=== PATIENT | female | born 1975 | race Caucasian/White ===

== ENCOUNTER 2021-04-10 12:35 | Emergency (ER) | payer SELFPAY ==
--- NOTE | 2021-04-10 15:52 | ER ---
Nurse's Notes [facility] Name: Bonnie Rivers Age: 45 yrs Sex: Female : 1975 Arrival Date: 04/10/2021 Time: 12:49 Bed DIS3 Private MD: Diagnosis: Acute gingivitis;Dental caries, unspecified Presentation: 04/10 13:08 Chief complaint: Patient states: Swelling to R side of face that began this morning. ss Coronavirus screen: Client denies travel out of the [place] in the last 14 days. Ebola Screen: Patient denies exposure to infectious person. Patient denies travel to an Ebola-affected area in the 21 days before illness onset. Initial Sepsis Screen: Does the patient meet any 2 criteria? No. Patient's initial sepsis screen is negative. Does the patient have a suspected source of infection? No. Patient's initial sepsis screen is negative. Risk Assessment: Do you want to hurt yourself or someone else? Patient reports no desire to harm self or others. Onset of symptoms was April 10, 2021. 13:08 Method Of Arrival: Ambulatory ss 13:08 Acuity: DARIA 3 ss Historical: - Allergies: 13:08 No Known Allergies; ss - PMHx: 13:08 Anxiety; GERD; ss - Immunization history:: Client reports receiving the 2nd dose of the Covid vaccine. - Social history:: Smoking status: . - Family history:: not pertinent. Assessment: 16:08 Reassessment: Patient is alert, oriented x 3, equal unlabored respirations, skin aa5 warm/dry/pink. Vital Signs: 13:08 Resp 16; Weight 76.66 kg; Height 5 ft. 6 in. (167.64 cm); Pain 9/10; ss 13:09 BP 115 / 89; Pulse 83; Resp 16; Temp 98.3(TE); Pulse Ox 99% ; ss 13:08 Body Mass Index 27.28 (76.66 kg, 167.64 cm) ED Course: 12:49 Patient arrived in ED. as 13:08 Triage completed. ss 13:08 Arm band placed on right wrist. ss 14:20 Adarsh Sanford MD is Attending Physician. [facility] 15:21 Stefani Mason RN is Primary Nurse. kg 15:51 Angel Gant DDS is Referral Physician. [facility] 16:08 No provider procedures requiring assistance completed. Patient did not have IV access aa5 during this emergency room visit. Administered Medications: 15:51 Drug: Amoxicillin 500 mg Route: PO; kg 15:51 Drug: Motrin (ibuprofen) 600 mg Route: PO; kg Outcome: 15:52 Discharge ordered by . [facility] 16:08 Discharged to home ambulatory. aa5 16:08 Condition: stable 16:08 Discharge instructions given to patient, Instructed on discharge instructions, follow up and referral plans. medication usage, Demonstrated understanding of instructions, follow-up care, medications, Prescriptions given X 2. 16:09 Patient left the ED. aa5 Signatures: Adarsh Sanford MD MD cha Martinez, Amelia as Calderon, Audri, RN RN aa5 Sushma Ayoub, RENETTA RN Stefani Mason RN RN kg
--- NOTE | 2021-04-10 15:53 | EDPHYS ---
Physician Documentation [facility] Name: Bonnie Rivers Age: 45 yrs Sex: Female : 1975 Arrival Date: 04/10/2021 Time: 12:49 Bed DIS3 Private MD: ED Physician Adarsh Sanford HPI: 04/10 15:42 This 45 yrs old Female presents to ER via Ambulatory with complaints of Jaw shanna Pain - swelling. 15:42 The patient presents with pain, redness. The problem is located in the lower right shanna first molar and lower right second molar. Onset: The symptoms/episode began/occurred 3 day(s) ago. Duration: The symptoms are continuous. Modifying factors: The symptoms are alleviated by nothing, the symptoms are aggravated by nothing. Associated signs and symptoms: The patient has no apparent associated signs or symptoms. Severity of symptoms: At their worst the symptoms were mild, in the emergency department the symptoms are unchanged. The patient has not experienced similar symptoms in the past. Historical: - Allergies: 13:08 No Known Allergies; ss - PMHx: 13:08 Anxiety; GERD; ss - Immunization history:: Client reports receiving the 2nd dose of the Covid vaccine. - Social history:: Smoking status: . - Family history:: not pertinent. ROS: 15:42 Constitutional: Negative for fever, chills, and weight loss, Eyes: Negative for injury, shanna pain, redness, and discharge, Neck: Negative for injury, pain, and swelling, Cardiovascular: Negative for chest pain, palpitations, and edema, Respiratory: Negative for shortness of breath, cough, wheezing, and pleuritic chest pain, Abdomen/GI: Negative for abdominal pain, nausea, vomiting, diarrhea, and constipation, Back: Negative for injury and pain, : Negative for injury, bleeding, discharge, and swelling, MS/Extremity: Negative for injury and deformity, Skin: Negative for injury, rash, and discoloration, Neuro: Negative for headache, weakness, numbness, tingling, and seizure, Psych: Negative for depression, anxiety, suicide ideation, homicidal ideation, and hallucinations, Allergy/Immunology: Negative for hives, rash, and allergies, Endocrine: Negative for neck swelling, polydipsia, polyuria, polyphagia, and marked weight changes, Hematologic/Lymphatic: Negative for swollen nodes, abnormal bleeding, and unusual bruising. 15:42 ENT: Positive for Gum pain Exam: 15:42 Constitutional: This is a well developed, well nourished patient who is awake, alert, shanna and in no acute distress. Head/Face: Normocephalic, atraumatic. Eyes: Pupils equal round and reactive to light, extra-ocular motions intact. Lids and lashes normal. Conjunctiva and sclera are non-icteric and not injected. Cornea within normal limits. Periorbital areas with no swelling, redness, or edema. Neck: Trachea midline, no thyromegaly or masses palpated, and no cervical lymphadenopathy. Supple, full range of motion without nuchal rigidity, or vertebral point tenderness. No Meningismus. Chest/axilla: Normal chest wall appearance and motion. Nontender with no deformity. No lesions are appreciated. Cardiovascular: Regular rate and rhythm with a normal S1 and S2. No gallops, murmurs, or rubs. Normal PMI, no JVD. No pulse deficits. Respiratory: Lungs have equal breath sounds bilaterally, clear to auscultation and percussion. No rales, rhonchi or wheezes noted. No increased work of breathing, no retractions or nasal flaring. Abdomen/GI: Soft, non-tender, with normal bowel sounds. No distension or tympany. No guarding or rebound. No evidence of tenderness throughout. Back: No spinal tenderness. No costovertebral tenderness. Full range of motion. Skin: Warm, dry with normal turgor. Normal color with no rashes, no lesions, and no evidence of cellulitis. MS/ Extremity: Pulses equal, no cyanosis. Neurovascular intact. Full, normal range of motion. Neuro: Awake and alert, GCS 15, oriented to person, place, time, and situation. Cranial nerves II-XII grossly intact. Motor strength 5/5 in all extremities. Sensory grossly intact. Cerebellar exam normal. Normal gait. Psych: Awake, alert, with orientation to person, place and time. Behavior, mood, and affect are within normal limits. 15:42 ENT: Mouth: Gums: noted to have cellulitis, on the lower right first molar and lower right second molar. Vital Signs: 13:08 Resp 16; Weight 76.66 kg; Height 5 ft. 6 in. (167.64 cm); Pain 9/10; ss 13:09 BP 115 / 89; Pulse 83; Resp 16; Temp 98.3(TE); Pulse Ox 99% ; ss 13:08 Body Mass Index 27.28 (76.66 kg, 167.64 cm) MDM: 14:20 Patient medically screened. shanna 15:49 Differential diagnosis: dental caries, gingivitis, dental abscess. Data reviewed: vital shanna signs, nurses notes. 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 Counseling: I had a detailed discussion with the patient and/or guardian regarding: the historical points, exam findings, and any diagnostic results supporting the discharge/admit diagnosis, lab results. Administered Medications: 15:51 Drug: Amoxicillin 500 mg Route: PO; kg 15:51 Drug: Motrin (ibuprofen) 600 mg Route: PO; kg Disposition Summary: 04/10/21 15:52 Discharge Ordered Location: Home shanna Problem: new shanna Symptoms: have improved shanna Condition: Stable shanna Diagnosis - Acute gingivitis shanna - Dental caries, unspecified shanna Followup: shanna - With: Private Physician - When: 2 - 3 days - Reason: Recheck today's complaints, Continuance of care, Re-evaluation by your physician Followup: shanna - With: Angel Gant DDS - When: 2 - 3 days - Reason: Recheck today's complaints, Re-evaluation by your physician Discharge Instructions: - Discharge Summary Sheet shanna - Dental Caries, Adult shanna - Dental Pain shanna - Dental Pain, [id number] shanna - Diet and Dental Disease shanna - Dental Caries, Adult, [id number] [facility] Forms: - Medication Reconciliation Form [facility] - Thank You Letter [facility] - Antibiotic Education shanna - Prescription Opioid Use [facility] - Work release form [facility] Prescriptions: - Amoxicillin 500 mg Oral Capsule - take 1 capsule by ORAL route every 8 hours for 10 days; 30 tablet; Refills: 0, shanna Product Selection Permitted - Ibuprofen 600 mg Oral Tablet - take 1 tablet by ORAL route every 6 hours As needed take with food; 21 tablet; shanna Refills: 0, Product Selection Permitted Signatures: Adarsh Sanford MD MD cha Smirch, Shelby, RN RN ss Stefani Mason RN RN kg
[2021-04-10] MEDS ORDERED: IBUPROFEN 400 MG TAB ONE (16:07)
[2021-04-10] MEDS ORDERED: AMOXICILLIN TRIHYDR 250 MG CAP ONE (16:07)
[2021-04-10] MEDS ORDERED: IBUPROFEN 200 MG TAB PO ONE (16:07)
[2021-04-10 16:20] VITALS: BP 115/89; TEMP 98.3; O2SAT 99
== END 2021-04-10 16:09 | disposition home or self-care (01) ==
LOC: ER 12:35
DX: K05.00 Acute gingivitis, plaque induced (principal)
CPT/HCPCS: 99283

== ENCOUNTER 2021-07-12 21:50 | Emergency (ER) | payer SELFPAY ==
[2021-07-12] MEDS ORDERED: ACETAMINOPHEN 500 MG TAB ONE (22:44)
[2021-07-12 22:49] LABS: Absolute Lymphocytes (CBC) 1.2 K/uL (0.7-4.9); Basophils % 0.3 % (0-1.3); Hematocrit 31.1 % (36.0-45.0); Lymphocytes % 9.8 % (15.3-44.8); MPV 8.7 fL (7.6-11.3); RBC Red Blood Cell Count 3.56 M/uL (3.86-4.86)
[2021-07-12 23:03] LABS: Protime INR 1.19
[2021-07-12 23:10] LABS: Urine Blood 3+ (Negative); Urine Glucose Negative (Negative); Urine Protein 2+ (Negative); Urine Specific Gravity >=1.030 (1.005-1.030)
[2021-07-12 23:13] LABS: ALT/SGPT 16 U/L (12-78); AST/SGOT 12 U/L (15-37); Albumin 3.2 g/dL (3.4-5.0); Alkaline Phosphatase 92 U/L (45-117); BUN Blood Urea Nitrogen 8 mg/dL (7-18); Bicarbonate 25 mmol/L (21-32); Bilirubin Direct < 0.1 mg/dL (0-0.2); Bilirubin Total 0.3 mg/dL (0.2-1.0); Creatine Phosphokinase 54 U/L (26-192); Glucose Level 101 mg/dL (74-106); Lipase 63 U/L (73-393); Potassium 3.2 mmol/L (3.5-5.1); Protein, Total 7.3 g/dL (6.4-8.2); Sodium Level 139 mmol/L (136-145); Troponin (Emerg Dept Use Only) < 0.02 ng/mL (0.0-0.045)
[2021-07-12 23:17] LABS: CKMB Creatine Kinase MB < 1.0 ng/mL (1.0-3.6)
[2021-07-12] MEDS ORDERED: NA CHLORIDE 0.9% 1,000 ML ONE (23:20)
[2021-07-12] MEDS ORDERED: POTASSIUM CL SA 10 MEQ TAB PO ONE (23:50)
--- NOTE | 2021-07-12 23:59 | ER ---
Nurse's Notes [facility] Name: Bonnie Rivers Age: 46 yrs Sex: Female : 1975 Arrival Date: 07/12/2021 Time: 21:53 Bed 6 Private MD: Diagnosis: Syncope;Right rib pain;Right lateral chest wall pain Presentation: 07/12 22:13 Chief complaint: Patient states: "I had two fainting spells like 10 minutes apart. I ss don't know if I hit my side or not and my neck kind of hurts. I felt fine this morning, now I just feel tired.". Coronavirus screen: Client denies travel out of the [place] in the last 14 days. Ebola Screen: Patient denies exposure to infectious person. Patient denies travel to an Ebola-affected area in the 21 days before illness onset. Initial Sepsis Screen: Does the patient meet any 2 criteria? No. Patient's initial sepsis screen is negative. Does the patient have a suspected source of infection? No. Patient's initial sepsis screen is negative. Risk Assessment: Do you want to hurt yourself or someone else? Patient reports no desire to harm self or others. Onset of symptoms was July 12, 2021. 22:13 Method Of Arrival: Ambulatory 22:13 Acuity: DARIA 3 07/13 01:29 Note Neuro's intact. A\\T\\Ox4. face WNF. hand grasps equal. Foot pumps equal. Pt states df1 headache to left side. Denies N, V, dizziness, numbness, tingling. Triage Assessment: 07/12 22:41 General: Appears uncomfortable, Behavior is calm, cooperative. Pain: Complains of pain df1 in forehead and left roman catholic. 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 - Social history:: Smoking status: Patient reports the use of cigarette tobacco products, smokes one-half pack cigarettes per day. Screenin:40 Abuse screen: Denies threats or abuse. Nutritional screening: No deficits noted. df1 Tuberculosis screening: No symptoms or risk factors identified. Fall Risk Fall in past 12 months (25 points). No secondary diagnosis (0 pts). IV access (20 points). Ambulatory Aid- None/Bed Rest/Nurse Assist (0 pts). Gait- Weak (10 pts.). Mental Status- Oriented to own ability (0 pts). Total Latham Fall Scale indicates Low Risk Score (25-44 pts). Side Rails Up X 2. Assessment: 22:17 Reassessment: Pt to CT now VIA wheelchair. ss 07/13 00:00 General: Appears in no apparent distress. uncomfortable, Behavior is calm, cooperative. df1 00:00 Pain:. Neuro: No deficits noted. Cardiovascular: No deficits noted. Respiratory: No df1 deficits noted. GI: No deficits noted. : No deficits noted. EENT: No deficits noted. Musculoskeletal: No deficits noted. Vital Signs: 07/12 22:13 Temp 98.0(TE); ss 22:40 BP 119 / 81; Pulse 85; Resp 18; Pulse Ox 99% on R/A; Pain 9/10; df1 22:40 BP 106 / 79 Supine; Pulse 87; Resp 22; Pulse Ox 99% on R/A; oe 22:42 BP 115 / 79 Sitting; Pulse 88; Resp 21; Pulse Ox 100% on R/A; oe 22:44 BP 126 / 76 Standing; Pulse 93; Resp 21; Pulse Ox 100% on R/A; oe 23:25 BP 118 / 90; Pulse 86; Resp 18; Pulse Ox 99% on R/A; df1 07/13 00:30 BP 120 / 78; Pulse 84; Resp 18; Pulse Ox 99% on R/A; Pain 5/10; df1 01:28 BP 122 / 76; Pulse 83; Resp 18; Pulse Ox 99% on R/A; df1 ED Course: 07/12 21:53 Patient arrived in ED. bp1 22:11 Keisha Saleh FNP-C [facility]. kb 22:11 Jakub Giles MD is Attending Physician. kb 22:15 Triage completed. ss 22:15 Arm band placed on left wrist. ss 22:21 Maia Da Silva is Primary Nurse. df1 22:23 CT Head Brain wo Cont In Process Unspecified. EDMS 22:26 Chest Single View XRAY In Process Unspecified. EDMS 22:39 Basic Metabolic Panel Sent. df1 22:39 CBC with Automated Diff Sent. df1 22:39 Creatine Phosphokinase Sent. df1 22:39 Basic Metabolic Panel Sent. df1 22:39 CBC with Diff Sent. df1 22:39 CPK Sent. df1 22:40 Patient has correct armband on for positive identification. Placed in gown. Bed in low df1 position. Call light in reach. Side rails up X 1. Adult w/ patient. monitoring tech on. Pulse ox on. NIBP on. 22:40 Ckmb Sent. df1 22:40 Hepatic Function Sent. df1 22:40 Lipase Sent. df1 22:40 Magnesium Sent. df1 22:40 Protime (+inr) Sent. df1 22:40 Ptt, Activated Sent. df1 22:40 Troponin (emerg Dept Use Only) Sent. df1 22:40 No provider procedures requiring assistance completed. Inserted saline lock: 20 gauge df1 in right antecubital area, using aseptic technique. 23:15 UDS Sent. df1 Administered Medications: 22:47 Drug: Tylenol 1000 mg Route: PO; df1 23:24 Drug: NS 0.9% 1000 ml Route: IV; Rate: 1000 ml; Site: right antecubital; df1 23:54 Drug: Potassium Chloride 40 mEq Route: PO; df1 07/13 01:27 Drug: Ketorolac 30 mg Route: IVP; Site: right antecubital; df1 Outcome: 07/12 23:59 Discharge ordered by . sabas 07/13 02:06 Patient left the ED. bb Signatures: Dispatcher [employer] EDMS Keisha Saleh, MILTON WIRELESS SALES REPRESENTATIVE-[place] Black, RN RN Sushma Mcdonough, Derek Dunn RN, Brittany bp1 Furlich, Dawn df1
--- NOTE | 2021-07-13 | EDPHYS ---
Physician Documentation [facility] Name: Bonnie Rivers Age: 46 yrs Sex: Female : 1975 Arrival Date: 07/12/2021 Time: 21:53 Bed 6 Private MD: ED Physician Jakub Giles HPI: 07/12 22:47 This 46 yrs old Female presents to ER via Ambulatory with complaints of Passed Out kb Prior To Arrival. 22:47 The patient has experienced syncope, collapsed. Onset: The symptoms/episode kb began/occurred just prior to arrival. Duration: The patient has had multiple episodes. Context: the episode(s) was witnessed, by no one, occurred at home, occurred while the patient was changing positions. Just prior to the episode the patient experienced lightheadedness. Associated injury: Chest: right lateral anterior chest, pain, tenderness. Associated signs and symptoms: The patient has no apparent associated signs or symptoms. Current symptoms: headache, that is mild. The patient has not experienced similar symptoms in the past. The patient has not recently seen a physician. Pt states she got lightheaded walking into the house, put her head down for a minute and passed out when she stood back up. states she was only out for a minute or so. A little while later pt stood up from toilet, got lightheaded, put her head down on the counter and when she stood up she passed out again. . 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 - Social history:: Smoking status: Patient reports the use of cigarette tobacco products, smokes one-half pack cigarettes per day. ROS: 22:46 Constitutional: Negative for fever, chills, and weight loss. kb 22:46 Neuro: Positive for syncope. 22:46 All other systems are negative. 23:58 Cardiovascular: Positive for right rib pain. kb Exam: 22:46 Constitutional: This is a well developed, well nourished patient who is awake, alert, kb and in no acute distress. Head/Face: Normocephalic, atraumatic. Eyes: Pupils equal round and reactive to light, extra-ocular motions intact. Lids and lashes normal. Conjunctiva and sclera are non-icteric and not injected. Cornea within normal limits. Periorbital areas with no swelling, redness, or edema. ENT: Moist Mucous membranes Cardiovascular: Regular rate and rhythm with a normal S1 and S2. No gallops, murmurs, or rubs. No pulse deficits. Respiratory: Respirations even and unlabored. No increased work of breathing, no retractions or nasal flaring. Abdomen/GI: Soft, non-tender. No distention Skin: Warm, dry with normal turgor. Normal color. MS/ Extremity: Pulses equal, no cyanosis. Neurovascular intact. Full, normal range of motion. Neuro: Awake and alert, GCS 15, oriented to person, place, time, and situation. Moves all extremities. Normal gait. 22:46 ECG was reviewed by the Attending Physician. 23:58 Chest/axilla: Palpation: tenderness, that is moderate, of the right lateral anterior kb chest, that totally reproduces the patient's complaints. Vital Signs: 22:13 Temp 98.0(TE); ss 22:40 BP 119 / 81; Pulse 85; Resp 18; Pulse Ox 99% on R/A; Pain 9/10; df1 22:40 BP 106 / 79 Supine; Pulse 87; Resp 22; Pulse Ox 99% on R/A; oe 22:42 BP 115 / 79 Sitting; Pulse 88; Resp 21; Pulse Ox 100% on R/A; oe 22:44 BP 126 / 76 Standing; Pulse 93; Resp 21; Pulse Ox 100% on R/A; oe 23:25 BP 118 / 90; Pulse 86; Resp 18; Pulse Ox 99% on R/A; df1 07/13 00:30 BP 120 / 78; Pulse 84; Resp 18; Pulse Ox 99% on R/A; Pain 5/10; df1 01:28 BP 122 / 76; Pulse 83; Resp 18; Pulse Ox 99% on R/A; df1 MDM: 07/12 22:12 Patient medically screened. kb 22:45 Data reviewed: vital signs, nurses notes. Data interpreted: Pulse oximetry: on room air kb is 99 %. Interpretation: normal. 23:58 Counseling: I had a detailed discussion with the patient and/or guardian regarding: the kb historical points, exam findings, and any diagnostic results supporting the discharge/admit diagnosis, lab results, radiology results, the need for outpatient follow up, a family practitioner, to return to the emergency department if symptoms worsen or persist or if there are any questions or concerns that arise at home. 07/12 22:16 Order name: Basic Metabolic Panel kb 07/12 22:16 Order name: CBC with Diff kb 07/12 22:16 Order name: CPK kb 07/12 22:16 Order name: Ckmb; Complete Time: 23:28 kb 07/12 22:16 Order name: Hepatic Function; Complete Time: 23:28 kb 07/12 22:16 Order name: Lipase; Complete Time: 23:28 kb 07/12 22:16 Order name: Magnesium; Complete Time: 23:28 kb 07/12 22:16 Order name: Protime (+inr); Complete Time: 23:14 kb 07/12 22:16 Order name: Ptt, Activated; Complete Time: 23:14 kb 07/12 22:16 Order name: Troponin (emerg Dept Use Only); Complete Time: 23:28 kb 07/12 22:17 Order name: Basic Metabolic Panel; Complete Time: 23:28 EDMS 07/12 22:17 Order name: CBC with Automated Diff; Complete Time: 22:54 EDMS 07/12 22:17 Order name: Creatine Phosphokinase; Complete Time: 23:28 EDMS 07/12 22:54 Order name: UDS 07/12 22:16 Order name: CT Head Brain wo Cont kb 07/12 22:16 Order name: EKG; Complete Time: 22:17 kb 07/12 22:16 Order name: Cardiac monitoring; Complete Time: 22:39 kb 07/12 22:16 Order name: EKG - Nurse/Tech; Complete Time: 22:39 kb 07/12 22:16 Order name: IV Saline Lock; Complete Time: 22:39 kb 07/12 22:16 Order name: Labs collected and sent; Complete Time: 22:39 kb 07/12 22:16 Order name: NPO; Complete Time: 22:39 kb 07/12 22:16 Order name: O2 Per Protocol; Complete Time: 22:39 kb 07/12 22:16 Order name: O2 Sat Monitoring; Complete Time: 22:39 kb 07/12 22:16 Order name: Chest Single View XRAY kb 07/12 22:55 Order name: Urine Drug Screen; Complete Time: 01:26 EDMS 07/12 23:09 Order name: Urine Dipstick-Ancillary; Complete Time: 23:14 EDMS 07/12 22:16 Order name: Urine Dipstick-Ancillary (obtain specimen); Complete Time: 23:13 kb 07/12 22:16 Order name: Orthostatics; Complete Time: 23:13 kb EC:46 Rate is 83 beats/min. Rhythm is regular. QRS [place] is Normal. [place] interval is normal at kb 148 msec. QRS interval is normal at 86 msec. QT interval is normal at 398 msec. Administered Medications: 22:47 Drug: Tylenol 1000 mg Route: PO; df1 23:24 Drug: NS 0.9% 1000 ml Route: IV; Rate: 1000 ml; Site: right antecubital; df1 23:54 Drug: Potassium Chloride 40 mEq Route: PO; df1 07/13 01:27 Drug: Ketorolac 30 mg Route: IVP; Site: right antecubital; df1 Disposition: 06:11 Co-signature as Attending Physician, Jakub Giles MD. [facility] Disposition Summary: 07/12/21 23:59 Discharge Ordered Location: Home kb Condition: Stable kb Diagnosis - Syncope kb - Right rib pain kb - Right lateral chest wall pain kb Followup: kb - With: Emergency Department - When: As needed - Reason: Worsening of condition Followup: kb - With: Private Physician - When: 2 - 3 days - Reason: Recheck today's complaints, Continuance of care, Re-evaluation by your physician Discharge Instructions: - Discharge Summary Sheet kb - Chest Wall Pain, [id number] kb - Syncope, [id number] kb Forms: - Medication Reconciliation Form kb - Thank You Letter kb - Antibiotic Education kb - Prescription Opioid Use kb - Work release form lt3 Signatures: Dispatcher [employer] EDMS Keisha Saleh FNP-C FNP-Ckb Smirch, Shelby, RN RN Jakub Shultz MD MD [facility] Maia Da Silva df1 Corrections: (The following items were deleted from the chart) 07/12 23:58 22:46 Constitutional: This is a well developed, well nourished patient who is awake, kb alert, and in no acute distress. Head/Face: Normocephalic, atraumatic. Eyes: Pupils equal round and reactive to light, extra-ocular motions intact. Lids and lashes normal. Conjunctiva and sclera are non-icteric and not injected. Cornea within normal limits. Periorbital areas with no swelling, redness, or edema. ENT: Moist Mucous membranes Cardiovascular: Regular rate and rhythm with a normal S1 and S2. No gallops, murmurs, or rubs. No pulse deficits. Respiratory: Respirations even and unlabored. No increased work of breathing, no retractions or nasal flaring. Abdomen/GI: Soft, non-tender. No distention Skin: Warm, dry with normal turgor. Normal color. MS/ Extremity: Pulses equal, no cyanosis. Neurovascular intact. Full, normal range of motion. Neuro: Awake and alert, GCS 15, oriented to person, place, time, and situation. Moves all extremities. Normal gait. kb
[2021-07-13] MEDS ORDERED: KETOROLAC 30 MG/ML INJ ONE (01:19)
[2021-07-13 01:23] LABS: Barbiturates NEGATIVE (NEGATIVE); Benzodiazepines NEGATIVE (NEGATIVE); Cocaine NEGATIVE (NEGATIVE); METHAMPHETAM NEGATIVE (NEGATIVE); Methadone NEGATIVE (NEGATIVE); Opiates NEGATIVE (NEGATIVE); Phencyclidine NEGATIVE (NEGATIVE); THC Cannibis POSITIVE (NEGATIVE)
[2021-07-13 02:21] VITALS: TEMP 98
[2021-07-13 02:35] VITALS: O2SAT 99
[2021-07-13 02:37] VITALS: BP 122/76
--- NOTE | 2021-07-13 08:23 | RAD REPORT ---
EXAM DESCRIPTION: RAD - Chest Single View - 07/12/2021 10:26 pm CLINICAL HISTORY: right rib pain COMPARISON: CHEST SINGLE VIEW dated 05/31/2014; CHEST PA AND LAT 2 VIEW dated 05/31/2014; CHEST SING LE VIEW dated 06/15/2012 FINDINGS: Lines: None. Lungs: No evidence of edema or pneumonia. Pleural: No significant pleural effusions or pneumothorax. Cardiac: The heart size is within normal limits. Bones: No acute fractures. Other: IMPRESSION: No acute cardiopulmonary disease.
--- NOTE | 2021-07-13 18:30 | RAD REPORT ---
EXAM DESCRIPTION: CT - Head Brain Wo Cont - 07/13/2021 6:29 am CLINICAL HISTORY: 46 years Female Dizziness;Syncope COMPARISON: None TECHNIQUE: Contiguous axial images of the brain were obtained without the administration of intraven ous contrast.This exam was performed according to our departmental dose-optimization program which in cludes use of Automated Exposure Control, adjustment of the mA and/or kV according to patient size an d/or use of iterative reconstruction technique. DLP: 853 mGy*cm FINDINGS: Brain: No acute intracranial hemorrhage. No extra-axial collection. No mass effect or omar iation. Ventricles: Within normal limits in size. Globes and orbits: No acute abnormality. Bones: No acute osseous finding Paranasal sinuses: Paranasal sinuses are clear. Mastoid air cells: Well pneumatized. Soft tissues: Within normal limits IMPRESSION: No acute intracranial abnormality. Electronically signed by: Ethan Parmar DO 07/12/2021 10:35 PM TILE LAYER Due to temporary technical issues with the PACS/Fluency reporting system, reports are being signed by the in house radiologists without review as a courtesy to insure prompt reporting. The interpreting radiologist is fully responsible for the content of the report.
== END 2021-07-13 02:06 | disposition home or self-care (01) ==
LOC: ER 21:50
DX: R07.89 Other chest pain (principal); R07.81 Pleurodynia; F41.9 Anxiety disorder, unspecified; F17.210 Nicotine dependence, cigarettes, uncomplicated
CPT/HCPCS: 36415; 70450; 71045; 80048; 80076; 80307; 81003; 82550; 82553; 83690; 83735; 84484; 85025; 85610; 85730; 93005; 96374; 99284; J7030

== ENCOUNTER 2021-07-20 23:18 | Emergency (ER) | payer SELFPAY ==
[2021-07-21 00:38] LABS: Urine Blood Trace-lysed (Negative); Urine Glucose Negative (Negative); Urine Protein Negative (Negative); Urine Specific Gravity >=1.030 (1.005-1.030); Urine pH 5.5 (5.0-7.0)
[2021-07-21] MEDS ORDERED: MORPHINE 4 MG/ML SYR ONE (00:38)
[2021-07-21] MEDS ORDERED: ONDANSETRON 4 MG/2 ML VIAL ONE (00:38)
--- NOTE | 2021-07-21 02:28 | EDPHYS ---
Physician Documentation [facility] Name: Bonnie Rivers Age: 46 yrs Sex: Female : 1975 Arrival Date: 07/20/2021 Time: 23:24 Bed 8 Private MD: ED Physician Jakub Giles HPI: 07/20 00:39 This 46 yrs old Female presents to ER via Ambulatory with complaints of Right rib pain. pm1 00:39 Onset: last week. The pain does not radiate. Associated signs and symptoms: Pertinent pm1 negatives: abdominal pain, cough, shortness of breath. The chest pain is described as sharp. Duration: The patient or guardian reports a single episode, that is still ongoing. Modifying factors: The symptoms are alleviated by nothing. the symptoms are aggravated by deep breath, palpation of area. Severity of pain: in the emergency department the pain is unchanged. Seen in the ER here last week due to syncopal episode where she hit her right upper ribs against a toilet. Patient denies any further trauma since fall injury last week and is presenting here today with complaints of pain in that area. Patient was this not discharged home with pain medications. 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 - Social history:: Smoking status: Patient reports the use of cigarette tobacco products. ROS: 00:39 Constitutional: Negative for fever, chills, and weight loss, Cardiovascular: Negative pm1 for chest pain, palpitations, and edema. 00:39 Abdomen/GI: Negative for abdominal pain, nausea, vomiting, diarrhea, and constipation, Back: Negative for injury and pain, MS/Extremity: Negative for injury and deformity, Skin: Negative for injury, rash, and discoloration, Neuro: Negative for headache, weakness, numbness, tingling, and seizure. 00:39 Respiratory: Negative for cough, shortness of breath. 00:39 All other systems are negative. Exam: 00:39 Constitutional: This is a well developed, well nourished patient who is awake, alert, pm1 and in no acute distress. Head/Face: Normocephalic, atraumatic. 00:39 Skin: Warm, dry with normal turgor. Normal color with no rashes, no lesions, and no evidence of cellulitis. MS/ Extremity: Pulses equal, no cyanosis. Neurovascular intact. Full, normal range of motion. 00:39 Chest/axilla: Inspection: no acute changes, Palpation: crepitus, is not appreciated, tenderness, that is mild, of the right axilla, that totally reproduces the patient's complaints. 00:39 Cardiovascular: Exam negative for acute changes, Rate: normal, Rhythm: regular, Pulses: no pulse deficits are appreciated, Heart sounds: normal, normal S1and S2, Edema: is not appreciated. 00:39 Respiratory: Exam negative for acute changes, respiratory distress, shortness of breath, Breath sounds: are clear throughout. 00:39 Neuro: Exam negative for acute changes, Orientation: is normal, Mentation: is normal, Motor: is normal, moves all fours. Vital Signs: 23:51 BP 129 / 85; Pulse 96; Resp 99; Temp 97.9; Pulse Ox 99% on R/A; Weight 68.04 kg; Height mr2 5 ft. 6 in. (167.64 cm); Pain 10/10; 12/05 00:34 BP 119 / 87; Pulse 87; Resp 18; Pulse Ox 99% on R/A; Pain 10/10; tw5 01:53 BP 129 / 90; Pulse 70; Resp 18; Pulse Ox 100% on R/A; tw5 02:38 BP 119 / 94; Pulse 71; Resp 18; Pulse Ox 100% on R/A; tw5 12/04 23:51 Body Mass Index 24.21 (68.04 kg, 167.64 cm) mr2 MDM: 00:36 Patient medically screened. pm1 02:14 Data reviewed: vital signs. Data interpreted: Pulse oximetry: on room air is 100 %. pm1 Interpretation: normal. Counseling: I had a detailed discussion with the patient and/or guardian regarding: the historical points, exam findings, and any diagnostic results supporting the discharge/admit diagnosis, lab results, radiology results, the need for outpatient follow up, a family practitioner, to return to the emergency department if symptoms worsen or persist or if there are any questions or concerns that arise at home. 02:27 ED course: Patient denies any breast pain. Discussed CT results and follow up with PCP pm1 for r/o malignancy. 07/21 00:38 Order name: Urine Dipstick-Ancillary; Complete Time: 00:39 EDMS 07/21 00:39 Order name: Urine --Ancillary (enter results); Complete Time: 01:03 cs9 07/21 00:37 Order name: CT Chest Wo Con pm1 Administered Medications: 00:39 Drug: morphine 4 mg Route: IVP; Site: right antecubital; tw5 02:38 Follow up: Response: No adverse reaction; Pain is decreased; RASS: Alert and Calm (0) tw5 00:39 Drug: Zofran (Ondansetron) 4 mg Route: IVP; Site: right antecubital; tw5 02:38 Follow up: Response: No adverse reaction tw5 Disposition: 05:18 Co-signature as Attending Physician, Jakub Giles MD. 7 Disposition Summary: 07/21/21 02:28 Discharge Ordered Location: Home pm1 Problem: new pm1 Symptoms: have improved pm1 Condition: Stable pm1 Diagnosis - Contusion of right front wall of thorax pm1 Followup: pm1 - With: Emergency Department - When: As needed - Reason: Worsening of condition Followup: pm1 - With: Private Physician - When: 2 - 3 days - Reason: Recheck today's complaints, Continuance of care, Re-evaluation by your physician Discharge Instructions: - Discharge Summary Sheet pm1 - Rib Contusion pm1 Forms: - Medication Reconciliation Form pm1 - Thank You Letter pm1 - Antibiotic Education pm1 - Prescription Opioid Use pm1 Prescriptions: - acetaminophen-codeine 300-15 mg Oral tablet - take 2 tablet by ORAL route every 6 hours As needed as needed; 12 tablet; pm1 Refills: 0, Product Selection Permitted - Diclofenac Sodium 75 mg Oral tablet,delayed release (DR/EC) - take 1 tablet by ORAL route 2 times per day As needed; 30 tablet; Refills: 0, pm1 Product Selection Permitted Signatures: Dispatcher [employer] EDMI Saroj Hines, BRIJESH TRANSPORTER RADIOLOGY pm1 Jakub Giles MD MD 7 Zhang Real RN RN mr2 Arianna Spangler 5
--- NOTE | 2021-07-21 02:28 | ER ---
Nurse's Notes [facility] Name: Bonnie Rivers Age: 46 yrs Sex: Female : 1975 Arrival Date: 07/20/2021 Time: 23:24 Bed 8 Private MD: Diagnosis: Contusion of right front wall of thorax Presentation: 07/20 23:51 Chief complaint: Patient states: Pt had fallen last week and injured her right ribs, mr2 xray was neg. Returns today with rib pain when moving and bending over. no other complaints. no new injuries. Coronavirus screen: Vaccine status: Patient reports receiving the 2nd dose of the covid vaccine. Ebola Screen: No symptoms or risks identified at this time. Initial Sepsis Screen: Does the patient meet any 2 criteria? No. Patient's initial sepsis screen is negative. Does the patient have a suspected source of infection? No. Patient's initial sepsis screen is negative. Risk Assessment: Do you want to hurt yourself or someone else? Patient reports no desire to harm self or others. Onset of symptoms was July 15, 2021. 23:51 Method Of Arrival: Ambulatory mr2 23:51 Acuity: DARIA 3 mr2 Triage Assessment: 23:57 General: Appears in no apparent distress. Behavior is calm. Pain: Complains of pain in mr2 right lateral anterior chest Pain does not radiate. Pain currently is 10 out of 10 on a pain scale. Neuro: Reports. 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 - Social history:: Smoking status: Patient reports the use of cigarette tobacco products. Screenin/05 00:27 Abuse screen: Denies threats or abuse. Denies injuries from another. Nutritional tw5 screening: No deficits noted. Tuberculosis screening: No symptoms or risk factors identified. Fall Risk Fall in past 12 months (25 points). Secondary diagnosis (15 points) IV access (20 points). Ambulatory Aid- None/Bed Rest/Nurse Assist (0 pts). Assessment: 00:27 General: Reports "Last Thursday I had two fainting spells. I guess I hit my right side, tw5 and now it hurting pretty bad. I feel like under my right arm is swollen.". Neuro: Level of Consciousness is awake, alert, obeys commands, Oriented to person, place, time, situation. Respiratory: Airway is patent Trachea midline Respiratory effort is even, unlabored. 01:53 Cardiovascular: Rhythm is regular. tw5 01:53 General: Appears in no apparent distress. tw5 02:38 Reassessment: Patient appears in no apparent distress at this time. Patient and/or tw5 family updated on plan of care and expected duration. Pain level reassessed. Patient states feeling better. Patient states symptoms have improved. 02:38 Pain: Pain currently is 5 out of 10 on a pain scale. tw5 Vital Signs: 07/20 23:51 BP 129 / 85; Pulse 96; Resp 99; Temp 97.9; Pulse Ox 99% on R/A; Weight 68.04 kg; Height mr2 5 ft. 6 in. (167.64 cm); Pain 10/10; 12 00:34 BP 119 / 87; Pulse 87; Resp 18; Pulse Ox 99% on R/A; Pain 10/10; tw5 01:53 BP 129 / 90; Pulse 70; Resp 18; Pulse Ox 100% on R/A; tw5 02:38 BP 119 / 94; Pulse 71; Resp 18; Pulse Ox 100% on R/A; tw5 07/20 23:51 Body Mass Index 24.21 (68.04 kg, 167.64 cm) mr2 ED Course: 07/20 23:24 Patient arrived in ED. es 23:56 Triage completed. mr2 23:58 Arm band placed on right wrist. mr2 07/21 00:18 Assisted to bathroom. lp1 00:24 Saroj Hines NP is PHCP. pm1 00:24 Jakub Giles MD is Attending Physician. pm1 00:26 Arianna Spangler is Primary Nurse. tw5 00:26 Patient has correct armband on for positive identification. Placed in gown. Bed in low tw5 position. Call light in reach. Side rails up X 1. Adult w/ patient. Pulse ox on. NIBP on. 00:26 laboratory monitor on. tw5 00:27 Door closed. Moved to private room. Warm blanket given. Verbal reassurance given. tw5 00:27 Initial lab(s) drawn, by me, sent to lab. Urine collected: clean catch specimen, clear, tw5 Amount Voided: 100mL. Inserted saline lock: 20 gauge in right antecubital area, using aseptic technique. Blood collected. 00:58 CT Chest Wo Con In Process Unspecified. EDMS 02:38 No provider procedures requiring assistance completed. IV discontinued, intact, tw5 bleeding controlled, No redness/swelling at site. Pressure dressing applied. Administered Medications: 00:39 Drug: morphine 4 mg Route: IVP; Site: right antecubital; tw5 02:38 Follow up: Response: No adverse reaction; Pain is decreased; RASS: Alert and Calm (0) tw5 00:39 Drug: Zofran (Ondansetron) 4 mg Route: IVP; Site: right antecubital; tw5 02:38 Follow up: Response: No adverse reaction tw5 Outcome: 02:28 Discharge ordered by MD. pm1 02:39 Discharged to home ambulatory, with family. tw5 02:39 Condition: good 02:39 Discharge instructions given to patient, Instructed on discharge instructions, follow up and referral plans. no drinking with medication, no driving heavy equipment, medication usage, Demonstrated understanding of instructions, follow-up care, medications, Prescriptions given X 2. 02:39 Patient left the ED. tw5 Signatures: Dispatcher [employer] Precious Dodson Laura RN RN lp1 Saroj Hines NP FACILITIES TECHNICIAN pm1 Zhang Real RN RN mr2 Arianna Spangler tw5 Corrections: (The following items were deleted from the chart) 02:38 02:38 Reassessment: Patient appears in no apparent distress at this time. No changes tw5 from previously documented assessment. Patient and/or family updated on plan of care and expected duration. Pain level reassessed. tw5
[2021-07-21 02:46] VITALS: TEMP 97.9
[2021-07-21 02:49] VITALS: O2SAT 100
[2021-07-21 02:50] VITALS: BP 119/94
--- NOTE | 2021-07-21 13:34 | RAD REPORT ---
EXAM DESCRIPTION: CT - Thorax Everette Moyer - 07/21/2021 6:51 am CLINICAL HISTORY: Left sided rib pain TECHNIQUE: Axial computed tomography images of the chest without intravenous contrast. Sagittal an d coronal reformatted images were created and reviewed. This CT exam was performed using one or mor e of the following dose reduction techniques: automated exposure control, adjustment of the mA and/ or kV according to patient size, and/or use of iterative reconstruction technique. COMPARISON: No relevant prior studies available. FINDINGS: Lungs: Minimal biapical paraseptal emphysema. No focal consolidation. Pleural space: Unremarkable. No pneumothorax. No significant effusion. Heart: Unremarkable. No cardiomegaly. No significant pericardial effusion. Bones/joints: Unremarkable. No acute fracture. No dislocation. Soft tissues: Unremarkable. Vasculature: Unremarkable. No thoracic aortic aneurysm. Lymph nodes: Multiple subcentimeter right axillary lymph nodes with mild to moderate surrounding in filtrative changes. IMPRESSION: 1. No acute fracture. 2. Multiple subcentimeter right axillary lymph nodes with mild to moderate surrounding infiltrative changes. This is of uncertain etiology or clinical significance. Please correlate clinically for a ny signs and symptoms of infection. Follow-up is recommended in order to exclude underlying malignanc y. Electronically signed by: Les Soliz MD 07/21/2021 1:45 AM PODIATRIC SURGEON Due to temporary technical issues with the PACS/Fluency reporting system, reports are being signed by the in house radiologists without review as a courtesy to insure prompt reporting. The interpreting radiologist is fully responsible for the content of the report.
== END 2021-07-21 02:39 | disposition home or self-care (01) ==
LOC: ER 23:18
DX: S20.211A Contusion of right front wall of thorax, initial encounter (principal); W19.XXXA Unspecified fall, initial encounter; F41.9 Anxiety disorder, unspecified; Z72.0 Tobacco use
CPT/HCPCS: 71250; 81003; 81025; 96374; 96375; 99284; J2405

== ENCOUNTER 2023-05-05 11:30 | Emergency (ER) | payer OTHER, SELFPAY ==
--- OUTSIDE RECORDS SUMMARY | 2023-05-05 11:33 | XMS REPORT | Continuity of Care Document ---
:1975 Author Organization [facility] t Address [address] [place] [address] Care Team Providers Name Role Phone Unavailable Unavailable Unavailable Problems This patient has no known problems. Allergies, Adverse Reactions, Alerts This patient has no known allergies or adverse reactions. Medications This patient has no known medications. Procedures This patient has no known procedures. Encounters Start End Encounter Admission Attending Care Care Encounter Source Date/Time Date/Time Type Type Clinicians Facility Department ID 2023-03-23 2023-03-23 Outpatient [facility] [id number] [place] 13:11:22 13:11:22 [id number] F Dong 2023-02-20 2023-02-20 Outpatient [facility] [id number] [place] 15:44:58 15:44:58 Jessica Umana Results This patient has no known results.
--- NOTE | 2023-05-05 11:50 | EDPHYS ---
Physician Documentation [facility] Name: Bonnie Rivers Age: 48 yrs Sex: Female : 1975 Arrival Date: 05/05/2023 Time: 11:30 Bed IW3 Private MD: ED Physician Jase Kaplan HPI: 05/05 11:47 This 48 yrs old Female presents to ER via Unassigned with complaints of Facial Swelling.rn 11:47 The patient presents with pain, swelling. The problem is located in the mouth. rn 11:47 Onset: The symptoms/episode began/occurred 2 day(s) ago. Duration: The symptoms are rn continuous. Modifying factors: The symptoms are alleviated by nothing, the symptoms are aggravated by chewing. Associated signs and symptoms: Pertinent negatives: fever. Severity of symptoms: At their worst the symptoms were moderate, in the emergency department the symptoms are unchanged. The patient has not experienced similar symptoms in the past. The patient has not recently seen a physician. Patient reports right oral swelling and now cheek is swollen. No fever or chills. Reports poor dentition in the right lower teeth. No trouble swallowing or breathing.. 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 - Social history:: Smoking status: Patient denies any tobacco usage or history of. - Family history:: not pertinent. - Hospitalizations: : No recent hospitalization is reported. ROS: 11:47 Constitutional: Negative for fever, chills, and weight loss, ENT: Poor dentition and rn right cheek swelling Cardiovascular: Negative for chest pain, palpitations, and edema, Respiratory: Negative for shortness of breath, cough, wheezing, and pleuritic chest pain, Exam: 11:47 Constitutional: This is a well developed, well nourished patient who is awake, alert, rn and in no acute distress. Ambulatory to triage without difficulty or assistance Head/Face: Normocephalic, right cheek swelling without fluctuance ENT: Poor dentition with the right molar on the lower side with cavities. No obvious abscess. No stridor, uvula midline, no peritonsillar abscess Neck: No neck swelling, no crepitus Respiratory: No increased work of breathing, no retractions or nasal flaring. Vital Signs: 12:05 BP 126 / 96; Pulse 81; Resp 18; Temp 98.5; Pulse Ox 100% on R/A; Weight 73.94 kg; kb3 Height 5 ft. 6 in. ; Pain 7/10; 12:05 Body Mass Index 26.31 (73.94 kg, 167.64 cm) kb3 12:05 Pain Scale: Adult kb3 MDM: 11:35 Patient medically screened. rn 11:47 Differential diagnosis: dental caries, dental abscess, Buccal space cellulitis. Data rn reviewed: vital signs, nurses notes, and as a result, I will discharge patient. Counseling: I had a detailed discussion with the patient and/or guardian regarding the historical points, exam findings, and any diagnostic results supporting the discharge/admit diagnosis, the need for outpatient follow up, to return to the emergency department if symptoms worsen or persist or if there are any questions or concerns that arise at home. Special discussion: I discussed with the patient/guardian in detail that at this point there is no indication for admission to the hospital. It is understood, however, that if the symptoms persist or worsen the patient needs to return immediately for re-evaluation. Based on the history and exam findings, there is no indication for further emergent testing or inpatient evaluation. I discussed with the patient/guardian the need to see a dentist for further evaluation of the symptoms. Administered Medications: No medications were administered Disposition Summary: 05/05/23 11:50 Discharge Ordered Notes: Location: Home rn Problem: new rn Symptoms: are unchanged rn Condition: Stable rn Diagnosis - Cellulitis of face rn - Dental caries, unspecified rn Followup: rn - With: Private Physician - When: As needed - Reason: Recheck today's complaints, Re-evaluation by your physician Discharge Instructions: - Discharge Summary Sheet rn - Cellulitis, Adult rn - Dental Caries, Adult rn - Dental Pain rn Forms: - Medication Reconciliation Form rn - Thank You Letter rn - Antibiotic mill turner - Prescription Opioid Use rn - Patient Portal Instructions rn - Leadership Thank You Letter rn Prescriptions: - Clindamycin HCl 300 mg Oral Capsule - take 1 capsule ORAL route every 6 hours for 10 days; 40 capsule; Refills: 0, rn Product Selection Permitted - Tramadol 50 mg Oral Tablet - take 1 tablet ORAL route every 8 hours as needed; 12 tablet; Refills: 0, rn Product Selection Permitted Signatures: Jase Kaplan MD MD rn Bradberry, Kelly, RN RN kb3
--- NOTE | 2023-05-05 12:13 | ER ---
Nurse's Notes [facility] Name: Bonnie Rivers Age: 48 yrs Sex: Female : 1975 Arrival Date: 05/05/2023 Time: 11:30 Bed IW3 Private MD: Diagnosis: Cellulitis of face;Dental caries, unspecified Presentation: 05/05 12:05 Chief complaint: Patient states: "Yesterday my right side of my face started swelling kb3 but i've had pain since Thursday. It looks like there is some pus under my tooth". Coronavirus screen: Vaccine status: Patient reports receiving the 2nd dose of the covid vaccine. Ebola Screen: No symptoms or risks identified at this time. Initial Sepsis Screen: Does the patient meet any 2 criteria? No. Patient's initial sepsis screen is negative. Does the patient have a suspected source of infection? No. Patient's initial sepsis screen is negative. Risk Assessment: Do you want to hurt yourself or someone else? Patient reports no desire to harm self or others. Onset of symptoms was May 05, 2023. 12:05 Method Of Arrival: Ambulatory kb3 12:05 Acuity: DARIA 4 kb3 Triage Assessment: 12:07 General: Appears uncomfortable, Behavior is calm, cooperative. Pain: Complains of pain kb3 in mouth Pain radiates to right jaw Pain currently is 7 out of 10 on a pain scale. Quality of pain is described as throbbing, Pain began 2-3 days ago. Is continuous, Aggravated by eating, drinking. EENT: Oral mucosa is dry. Poor dentition noted. Neuro: Awad Agitation-Sedation Scale (RASS): 0 - Alert and Calm Level of Consciousness is awake, alert, obeys commands, Oriented to person, place, time, situation, Appropriate for age. Cardiovascular: Heart tones S1 S2 present Patient's skin is warm and dry. Respiratory: Airway is patent Respiratory effort is even, unlabored, Respiratory pattern is regular, symmetrical. GI: Abdomen is round non-distended, Bowel sounds present X 4 quads. Abd is soft and non tender X 4 quads. : No signs and/or symptoms were reported regarding the genitourinary system. Derm: Skin is pink, warm \\T\\ dry. Musculoskeletal: Range of motion: intact in all extremities. 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 - Social history:: Smoking status: Patient denies any tobacco usage or history of. - Family history:: not pertinent. - Hospitalizations: : No recent hospitalization is reported. Screenin:08 [facility] ED Fall Risk Assessment (Adult) History of falling in the last 3 months, kb3 including since admission No falls in past 3 months (0 pts) Confusion or Disorientation No (0 pts) Intoxicated or Sedated No (0 pts) Impaired Gait No (0 pts) Mobility Assist Device Used No (0 pt) Altered Elimination No (0 pt) Score/Fall Risk Level 0 - 2 = Low Risk Oriented to surroundings, Maintained a safe environment, Educated pt \\T\\ family on fall prevention, incl call for assistance when getting out of bed. Abuse screen: Denies threats or abuse. Nutritional screening: No deficits noted. Tuberculosis screening: No symptoms or risk factors identified. Assessment: 12:08 Reassessment: see triage assessment. kb3 Vital Signs: 12:05 BP 126 / 96; Pulse 81; Resp 18; Temp 98.5; Pulse Ox 100% on R/A; Weight 73.94 kg; kb3 Height 5 ft. 6 in. ; Pain 7/10; 12:05 Body Mass Index 26.31 (73.94 kg, 167.64 cm) kb3 12:05 Pain Scale: Adult kb3 ED Course: 11:35 Patient arrived in ED. im 11:35 Jase Kaplan MD is Attending Physician. rn 12:05 Arm band placed on. kb3 12:06 Triage completed. kb3 12:09 Jackie Mancera, RENETTA is Primary Nurse. mb9 12:09 Bed in low position. kb3 12:09 No provider procedures requiring assistance completed. Patient did not have IV access kb3 during this emergency room visit. Administered Medications: No medications were administered Medication: 12:09 VIS not applicable for this client. kb3 Outcome: 11:50 Discharge ordered by . rn 12:13 Discharged to home ambulatory, kb3 12:13 Condition: stable 12:13 Discharge instructions given to patient, Instructed on discharge instructions, follow up and referral plans. Demonstrated understanding of instructions, follow-up care, medications, Prescriptions given X 2, 12:13 Patient left the ED. kb3 Signatures: Jase Kaplan MD MD rn Bradberry, Kelly RN RN kb3 Jackie Mancera RN RN mb9 Zeian Conde
[2023-05-05 12:17] VITALS: BP 126/96; TEMP 98.5; O2SAT 100
== END 2023-05-05 12:13 | disposition home or self-care (01) ==
LOC: ER 11:30
DX: L03.211 Cellulitis of face (principal); K02.9 Dental caries, unspecified; I10 Essential (primary) hypertension

== ENCOUNTER → 2023-10-03 | Emergency (ER) | payer OTHER ==
[~2023-10-03] MED LIST: HYDROCODONE/APAP 7.5/325 MG TAB ONE
--- OUTSIDE RECORDS SUMMARY | 2023-10-03 12:01 | XMS REPORT | Continuity of Care Document ---
Author Name Unknown Address [address] [facility]. [address] [place] [address] [facility] thconnect Address [address] [facility] [address] [place] [address] Care Team Providers Care Client Care Representative Name Role Phone Unavailable Unavailable Unavailable Encounters Start Date/Time End Date/Time Encounter Type Admission Type Attending Clinicians Care Facility Care Department Encounter ID Source 2023-07-18 12:16:07 2023-07-18 12:16:07 Outpatient [facility] [id number] Delroy Umana 2023-03-23 13:11:22 2023-03-23 13:11:22 Outpatient [facility] [id number] Delroy Umana 2023-02-20 15:44:58 2023-02-20 15:44:58 Outpatient [facility] [id number] Delroy Umana Results Test Description Test Time Test Comments Results Result Co mments Source CULTURE, URINE 2023-07-22 13:56:42 SPECIMEN NUMBER: [id number] CULTURE, URINE SPECIMEN NUMBER: [id number] SPECIMEN COMMENT: URINE SOURCE: URINE REPORT STATUS: FINAL ISOLATE NUMBER 1: ORGANISM: 07/20/2023 50-100,000 CFU/ML GRAM NEGATIVE BACILLI IDENTIFICATION: 07/22/2023 ESCHERICHIA COLI E. COLI AMOX ICILLIN/CA SENSITIVE <=8/4AMPICILLIN SENSITIVE <=8CEFAZOLIN SENSITIVE 4CEFTRIAXONE SENSITIVE <=1CIPROFLOXACIN RESISTANT >2LEVOFLOXACIN RESISTANT >4NITROFURANTOIN SENSITIVE <=32PIP/TAZOBAC SENSITIVE <=16TETRACYCLINE RESISTANT >8TOBRAMYCIN SENSITIVE <=4TRIMETH/SULFA SENSITIVE <=2/38 NOTE: NUMBERS DISPLAYED REPRESENT MINIMUM INHIBITORY CONCENTRATION (JAYDE) WHICH IS EXPRESSED IN MCG/ML. LIPID [id number] 01:01:45* Test Item Value Reference Range Interpretation Comme nts CHOLESTEROL (test code = 2210) 133 MG/DL <200 TRIGLYCERIDES (test code = 2232) 76 MG/DL <150 HDL CHOLESTEROL (test code = 2220) 42 MG/DL >39 CALC LDL CHOL (test code = 2237) 75 MG/DL <100 NOTE: CALCULATED LDL IS BASED ON LINDA-MELVIN METHOD WHICHINCLUDES ADJUSTABLE TRIGLYCERIDE:VLDL CHOLESTEROL RATIO.THIS FACTOR VARIES BY MEASURED TRIGLYCERIDE AND NON-HDLCHOLESTEROL CONCENTRATIONS WITH INCREASED CALCULATED LDL SEENIN HIGHER TRIGLYCERIDE OR LOWER NON-HDL SPECIMENS. FOR MOREINFORMATION, SEE CLIENT ANNOUNCEMENT AT [email or web address] [email or web address] RATIO LDL/HDL (test code = 2238) 1.79 RATIO <3.22 UNLESS OTHERW ISE INDICATED, ALL TESTING PERFORMED AT [facility] [address] [place] [id number] [place] HISTORY PROFESSOR: Giorgio FARLEY NUMBER [id number] [facility] [place]. [id number]
--- NOTE | 2023-10-03 12:47 | RAD REPORT ---
EXAM DESCRIPTION: CT - CTHCSPWOC - 10/03/2023 12:33 pm CLINICAL HISTORY: Trauma, head and neck injury. PAIN COMPARISON: No comparisons TECHNIQUE: Axial 5 mm thick images of the head were obtained. Axial 2 mm thick images of the cervical spine were obtained with sagittal and coronal reconstruction images generated and reviewed. All CT scans are performed using dose optimization technique as appropriate and may include automated exposure control or mA/KV adjustment according to patient size. FINDINGS: CT HEAD WITHOUT CONTRAST: No acute hemorrhage, hydrocephalus or extra-axial collection is identified.No areas of brain edema or midline shift. The paranasal sinuses and mastoids are clear.The calvarium is intact. CT CERVICAL SPINE WITHOUT CONTRAST: No fracture or subluxation.No prevertebral soft tissues swelling is identified. IMPRESSION: No acute intracranial or cervical spine findings.
--- NOTE | 2023-10-03 12:47 | RAD REPORT ---
EXAM DESCRIPTION: RAD - Knee Left 3 View - 10/03/2023 12:39 pm CLINICAL HISTORY: PAIN COMPARISON: Knee Left 3 View dated 11/15/2016; Knee Left 3 view dated 07/30/2015 FINDINGS/IMPRESSION: No acute fracture. No malalignment. No significant focal degenerative changes.
--- NOTE | 2023-10-03 12:58 | EDPHYS ---
Physician Documentation [facility] Name: Bonnie Rivers Age: 48 yrs Sex: Female : 1975 Arrival Date: 10/03/2023 Time: 11:57 Bed 15 Private MD: AMY Physician Adarsh Sanford HPI: 10/03 13:20 This 48 yrs old Female presents to ER via Ambulatory with complaints of Head kb Injury-Adult, Knee Injury. 13:20 Patient is a 48-year-old female who fell at work just prior to arrival. Complains of kb left knee pain, neck pain and headache. States she hit her head on the wall when she fell.. Historical: - Allergies: 12:03 No Known Allergies; nj1 - PMHx: 12:03 Anxiety; GERD; Hypertensive disorder; Bipolar disorder; nj1 - PSHx: 12:03 section; nj1 - Immunization history:: Client reports receiving the 2nd dose of the Covid vaccine. - Social history:: Smoking status: Patient reports the use of cigarette tobacco products, smokes one-half pack cigarettes per day. ROS: 13:18 Constitutional: Negative for fever, chills, and weight loss, kb 13:18 Neck: Positive for bony tenderness, 13:18 MS/extremity: Positive for pain, swelling, tenderness, of the left knee, 13:18 All other systems are negative, Exam: 13:19 Constitutional: This is a well developed, well nourished patient who is awake, alert, kb and in no acute distress. Head/Face: Normocephalic, atraumatic. ENT: Moist Mucous membranes Cardiovascular: Regular rate Respiratory: Respirations even and unlabored. No increased work of breathing. Talking in full sentences Skin: Warm, dry with normal turgor. Normal color. Neuro: Awake and alert, GCS 15, oriented to person, place, time, and situation. Moves all extremities. Normal gait. 13:19 Neck: C-spine: vertebral tenderness, that is mild, appreciated at C5 and C6, 13:19 Musculoskeletal/extremity: Extremities: grossly normal except: noted in the left knee: pain, swelling, tenderness, ROM: intact in all extremities, Circulation is intact in all extremities. Sensation intact. Weight bearing: able to fully bear weight, Vital Signs: 12:03 BP 138 / 94; Pulse 77; Resp 16; Temp 98(O); Pulse Ox 94% on R/A; Weight 74.84 kg; nj1 Height 5 ft. 6 in. ; Pain 9/10; 12:31 BP 138 / 88; Pulse 74; Resp 15; Pulse Ox 99% ; ko1 13:37 BP 134 / 82; Pulse 78; Resp 15; Pulse Ox 99% ; ko1 12:03 Body Mass Index 26.63 (74.84 kg, 167.64 cm) nj1 12:03 Pain Scale: Adult nj1 Staci Coma Score: 12:03 Eye Response: spontaneous(4). Motor Response: obeys commands(6). Verbal Response: nj1 oriented(5). Total: 15. 12:31 Eye Response: spontaneous(4). Motor Response: obeys commands(6). Verbal Response: ko1 oriented(5). Total: 15. 13:19 Eye Response: spontaneous(4). Motor Response: obeys commands(6). Verbal Response: kb oriented(5). Total: 15. Trauma Score (Adult): 12:31 Eye Response: spontaneous(1); Verbal Response: oriented(1); Motor Response: obeys ko1 commands(2); Systolic BP: > 89 mm Hg(4); Respiratory Rate: 10 to 29 per min(4); [place] Score: 15; Trauma Score: 12 MDM: 12:00 Patient medically screened. kb 13:19 Differential diagnosis: Contusion of Hematoma on Intracranial bleed- fracture. Data kb reviewed: vital signs, nurses notes. Counseling: I had a detailed discussion with the patient and/or guardian regarding the historical points, exam findings, and any diagnostic results supporting the discharge/admit diagnosis, radiology results, the need for outpatient follow up, a family practitioner, to return to the emergency department if symptoms worsen or persist or if there are any questions or concerns that arise at home. 10/03 12:06 Order name: CT Head C Spine; Complete Time: 12:48 kb 10/03 12:06 Order name: Knee Left 3 View XRAY; Complete Time: 12:48 kb Administered Medications: 12:13 Drug: Hydrocodone-Acetaminophen PO (7.5 mg-325 mg) 1 tabs PO once Route: PO; ko1 Disposition Summary: 10/03/23 12:58 Discharge Ordered Notes: Location: Home kb Condition: Stable kb Diagnosis - Cervicalgia kb - Contusion of left knee kb Followup: kb - With: Emergency Department - When: As needed - Reason: Worsening of condition Followup: kb - With: Private Physician - When: 2 - 3 days - Reason: Recheck today's complaints, Continuance of care, Re-evaluation by your physician Discharge Instructions: - Discharge Summary Sheet kb - Musculoskeletal Pain kb - Contusion, [id number] kb Forms: - Work release form kb - Medication Reconciliation Form kb - Thank You Letter kb - Antibiotic Education kb - Prescription Opioid Use kb - Patient Portal Instructions kb - Leadership Thank You Letter kb Signatures: Dispatcher MedHost EDKeisha Luciano, GARDENIA-C AIRPORT UTILITY WORKER-Perla Quezada, RN RN ko1 Flavia Mora RN RN nj1
--- NOTE | 2023-10-03 12:58 | ER ---
Nurse's Notes [facility] Name: Bonnie Rivers Age: 48 yrs Sex: Female : 1975 Arrival Date: 10/03/2023 Time: 11:57 Bed 15 Private MD: Diagnosis: Cervicalgia;Contusion of left knee Presentation: 10/03 12:03 Chief complaint: Patient states: Tripped and fell at work. Complains of left knee pain nj1 as well as head and neck pain. Denies LOC. Did vomit once, denies nausea. 12:03 Coronavirus screen: Vaccine status: Patient reports receiving the 2nd dose of the covid nj1 vaccine. Ebola Screen: Patient denies travel to an Ebola-affected area in the 21 days before illness onset. Mechanism of Injury: The problem was sustained at work, resulted from a fall, while running. Initial Sepsis Screen: Does the patient meet any 2 criteria? No. Patient's initial sepsis screen is negative. Does the patient have a suspected source of infection? No. Patient's initial sepsis screen is negative. Risk Assessment: Do you want to hurt yourself or someone else? Patient reports no desire to harm self or others. 12:03 Method Of Arrival: Ambulatory nj1 12:03 Acuity: DARIA 3 nj1 Triage Assessment: 13:39 Neuro: Reports headache. ko1 13:39 General: Appears in no apparent distress. uncomfortable, Behavior is calm, cooperative, ko1 appropriate for age. Historical: - Allergies: 12:03 No Known Allergies; nj1 - PMHx: 12:03 Anxiety; GERD; Hypertensive disorder; Bipolar disorder; nj1 - PSHx: 12:03 section; nj1 - Immunization history:: Client reports receiving the 2nd dose of the Covid vaccine. - Social history:: Smoking status: Patient reports the use of cigarette tobacco products, smokes one-half pack cigarettes per day. Screenin:31 [facility] ED Fall Risk Assessment (Adult) History of falling in the last 3 months, ko1 including since admission Yes- single mechanical fall (1 pt) Confusion or Disorientation No (0 pts) Intoxicated or Sedated No (0 pts) Impaired Gait No (0 pts) Mobility Assist Device Used No (0 pt) Altered Elimination No (0 pt) Score/Fall Risk Level 0 - 2 = Low Risk Oriented to surroundings, Maintained a safe environment, Educated pt \T\ family on fall prevention, incl call for assistance when getting out of bed, Assessed \T\ reinforced patient's understanding of fall precautions, Provided non-skid footwear, Hourly rounding (assess needs \T\ fall precautionary measures) done, Used ambulatory aids as needed (educated on \T\ assisted with), Used gait belt as appropriate. Abuse screen: Denies threats or abuse. Denies injuries from another. Nutritional screening: No deficits noted. Tuberculosis screening: No symptoms or risk factors identified. Assessment: 12:31 General: Appears in no apparent distress. uncomfortable, Behavior is calm, cooperative, ko1 appropriate for age. Pain: Complains of pain in head, neck and left knee. Neuro: No deficits noted. Injury Description:. Vital Signs: 12:03 BP 138 / 94; Pulse 77; Resp 16; Temp 98(O); Pulse Ox 94% on R/A; Weight 74.84 kg; nj1 Height 5 ft. 6 in. ; Pain 9/10; 12:31 BP 138 / 88; Pulse 74; Resp 15; Pulse Ox 99% ; ko1 13:37 BP 134 / 82; Pulse 78; Resp 15; Pulse Ox 99% ; ko1 12:03 Body Mass Index 26.63 (74.84 kg, 167.64 cm) nj1 12:03 Pain Scale: Adult nj1 [place] Coma Score: 12:03 Eye Response: spontaneous(4). Motor Response: obeys commands(6). Verbal Response: nj1 oriented(5). Total: 15. 12:31 Eye Response: spontaneous(4). Motor Response: obeys commands(6). Verbal Response: ko1 oriented(5). Total: 15. 13:19 Eye Response: spontaneous(4). Motor Response: obeys commands(6). Verbal Response: kb oriented(5). Total: 15. Trauma Score (Adult): 12:31 Eye Response: spontaneous(1); Verbal Response: oriented(1); Motor Response: obeys ko1 commands(2); Systolic BP: > 89 mm Hg(4); Respiratory Rate: 10 to 29 per min(4); Staci Score: 15; Trauma Score: 12 ED Course: 11:59 Patient arrived in ED. ts1 11:59 Keisha Saleh FNP-C is [facility]. kb 11:59 Adarsh Sanford MD is Attending Physician. kb 12:06 Perla Olguin, RN is Primary Nurse. ko1 12:18 Triage completed. nj1 12:21 Arm band placed on right wrist. nj1 12:31 Patient has correct armband on for positive identification. Placed in gown. Bed in low ko1 position. Call light in reach. Side rails up X 1. Pulse ox on. NIBP on. Door closed. Noise minimized. Lights dimmed. Warm blanket given. 12:31 No provider procedures requiring assistance completed. ko1 12:34 CT Head C Spine In Process Unspecified. EDMS 12:41 Knee Left 3 View XRAY In Process Unspecified. EDMS 13:37 Provided Education on: na. ko1 13:37 Patient did not have IV access during this emergency room visit. ko1 Administered Medications: 12:13 Drug: Hydrocodone-Acetaminophen PO (7.5 mg-325 mg) 1 tabs PO once Route: PO; ko1 Medication: 13:37 VIS not applicable for this client. ko1 Outcome: 12:58 Discharge ordered by . kb 13:37 Discharged to home ambulatory, with family, ko1 13:37 Condition: stable 13:37 Discharge instructions given to patient, family, Instructed on discharge instructions, follow up and referral plans. Demonstrated understanding of instructions, follow-up care, 13:41 Patient left the ED. hb Signatures: Dispatcher [employer] EDNY Keisha Saleh FNP-C DEICER FINISHER-Ckb Kallie Fajardo RN RN Perla Olguin, RN RN ko1 Flavia Mora RN RN nj1 Rebecca Mora PAS PAS ts1
[2023-10-03 13:56] VITALS: BP 134/82; TEMP 98; O2SAT 99
== END ==
LOC: ER 11:57
DX: M54.2 Cervicalgia (principal); S80.02XA Contusion of left knee, initial encounter; R51.9 Headache, unspecified; W18.30XA Fall on same level, unspecified, initial encounter; Y99.0 Civilian activity done for income or pay; F17.210 Nicotine dependence, cigarettes, uncomplicated
CPT/HCPCS: 70450; 72125; 99283

== ENCOUNTER → 2023-10-31 | Emergency (ER) | payer OTHER ==
[~2023-10-31] MED LIST changes: +DIPHENHYDRAMINE 50 MG/ML VIAL ONE; -HYDROCODONE/APAP 7.5/325 MG TAB ONE; +KETOROLAC 30 MG/ML INJ ONE; +METOCLOPRAMIDE 10 MG/2mL INJ ONE; +NA CHLORIDE 0.9% 1,000 ML ONE
--- OUTSIDE RECORDS SUMMARY | 2023-10-31 11:18 | XMS REPORT | Continuity of Care Document ---
Author Name Unknown Address [address] [facility]. [address] [place] [address] [facility] thconnect Address [address] [facility] [address] [place] [address] Care Team Providers Care Etl Architect Name Role Phone Unavailable Unavailable Unavailable Encounters Start Date/Time End Date/Time Encounter Type Admission Type Attending Clinicians Care Facility Care Department Encounter ID Source 2023-07-18 12:16:07 2023-07-18 12:16:07 Outpatient [facility] [id number] Delroy Umana 2023-03-23 13:11:22 2023-03-23 13:11:22 Outpatient [facility] [id number] Delroy Umana 2023-02-20 15:44:58 2023-02-20 15:44:58 Outpatient [facility] [id number] Delroy Umana Results Test Description Test Time Test Comments Results Result Co mments Source CULTURE, URINE 2023-07-22 13:56:42 SPECIMEN NUMBER: [id number] CULTURE, URINE SPECIMEN NUMBER: [id number] SPECIMEN COMMENT: URINE SOURCE: URINE REPORT STATUS: FINAL ISOLATE NUMBER 1: ORGANISM: 07/20/2023 50-100,000 CFU/ML GRAM NEGATIVE BACILLI IDENTIFICATION: 07/22/2023 ESCHERICHIA COLI E. COLI AMOX ICILLIN/CA SENSITIVE <=8/4AMPICILLIN SENSITIVE <=8CEFAZOLIN SENSITIVE 4CEFTRIAXONE SENSITIVE <=1CIPROFLOXACIN RESISTANT >2LEVOFLOXACIN RESISTANT >4NITROFURANTOIN SENSITIVE <=32PIP/TAZOBAC SENSITIVE <=16TETRACYCLINE RESISTANT >8TOBRAMYCIN SENSITIVE <=4TRIMETH/SULFA SENSITIVE <=2/38 NOTE: NUMBERS DISPLAYED REPRESENT MINIMUM INHIBITORY CONCENTRATION (JAYDE) WHICH IS EXPRESSED IN MCG/ML. LIPID [id number] 01:01:45* Test Item Value Reference Range Interpretation [...] SPECIMENS. FOR MOREINFORMATION, SEE CLIENT ANNOUNCEMENT AT [email or web address] RATIO LDL/HDL (test code = 2238) 1.79 RATIO <3.22 UNLESS OTHERW ISE INDICATED, ALL TESTING PERFORMED AT [facility] [address] [place] [id number] IT HELP DESK MANAGER: Giorgio FARLEY NUMBER [id number] [facility] [place]. [id number]
--- NOTE | 2023-10-31 12:19 | RAD REPORT ---
EXAM DESCRIPTION: CT - Head Brain Wo Cont - 10/31/2023 12:14 pm CLINICAL HISTORY: HEADACHE Headache, drowsiness COMPARISON: Head Brain Wo Cont dated 07/12/2021; HEAD BRAIN W O CONTRAST dated 11/20/2012 TECHNIQUE: All CT scans are performed using dose optimization technique as appropriate and may inclu de automated exposure control or mA/KV adjustment according to patient size. FINDINGS: No intracranial hemorrhage, hydrocephalus or extra-axial fluid collection.No areas of brai n edema or evidence of midline shift. The paranasal sinuses and mastoids are clear. The calvarium is intact. IMPRESSION: No acute intracranial abnormality.
[2023-10-31 12:52] LABS: Absolute Basophils 0.1 K/uL (0-0.5); Absolute Eosinophils 0.1 K/uL (0-0.5); Absolute Lymphocytes (CBC) 1.7 K/uL (0.7-4.9); Absolute Monocytes 0.5 K/uL (0.1-1.3); Absolute Neutrophil 3.9 K/uL (1.8-8.0); Basophils % 1.1 % (0-1.3); Eosinophils % 1.8 % (0-4.4); Hematocrit 37.6 % (36.0-45.0); Hemoglobin 12.7 g/dL (12.0-15.0); Lymphocytes % 27.2 % (15.3-44.8); MCH 31.6 pg (27.0-35.0); MCHC 33.9 g/dL (32.0-36.0); Monocytes % 7.4 % (3.3-12.3); Neutrophils % 62.5 % (41.7-73.7); Platelets 240 thou/uL (152-406); RBC Red Blood Cell Count 4.04 M/uL (3.86-4.86); Red Cell Distribution Width 12.9 % (12.1-15.2)
[2023-10-31 13:32] LABS: SARS-CoV-2 Antigen CONTROL BLUE LINE VIS/BG OK; SARS-CoV-2 Antigen Rapid Res Negative (Negative)
[2023-10-31 14:40] LABS: Albumin/Globulin Ratio 0.8 (1.1-1.8); Bilirubin Total 0.3 mg/dL (0.2-1.0); Globulin 3.6 g/dL (2.3-3.5); Protein, Total 6.6 g/dL (6.4-8.2)
--- NOTE | 2023-10-31 14:43 | EDPHYS ---
Physician Documentation [facility] Name: Bonnie Rivers Age: 48 yrs Sex: Female : 1975 Arrival Date: 10/31/2023 Time: 11:16 Bed 9 Private MD: ED Physician Jacquelin Washington HPI: 10/30 13:50 This 48 yrs old Female presents to ER via Ambulatory with complaints of Fever, Jaw Pain.sb4 13:50 The patient complains of pain to the right jaw. Onset: The symptoms/episode sb4 began/occurred 2 day(s) ago. patients reports right jaw pain that radiates around her head, started 2 days ago. does endorse history of migraines. also reports fatigue and subjective fever. she works at a [employer]. EDITORIAL MANAGER: 11:35 LMP 10/30/2023, unknown aa5 Historical: - Allergies: 11:34 No Known Allergies; aa5 - PMHx: 11:34 Anxiety; Bipolar disorder; GERD; Hypertensive disorder; aa5 - PSHx: 11:34 section; aa5 - Immunization history:: Adult Immunizations unknown. - Social history:: Smoking status: Patient reports the use of cigarette tobacco products. ROS: 13:50 Constitutional: Negative for fever, chills, and weight loss, sb4 13:50 Constitutional: Positive for fatigue, 13:50 Neuro: Positive for headache, Exam: 13:50 Constitutional: This is a well developed, well nourished patient who is awake, alert, sb4 and in no acute distress. Head/Face: Normocephalic, atraumatic. Eyes: Extra-ocular motions intact. Periorbital areas with no swelling, redness, or edema. ENT: Mucous membranes moist. Cardiovascular: Regular rate and rhythm with a normal S1 and S2. Respiratory: Lungs have equal breath sounds bilaterally, clear to auscultation and percussion. No rales, rhonchi or wheezes noted. No increased work of breathing, no retractions or nasal flaring. Abdomen/GI: Soft, non-tender, no distension. Skin: Warm, dry with normal turgor. Normal color with no rashes, no lesions, and no evidence of cellulitis. MS/ Extremity: Pulses equal, no cyanosis. Neurovascular intact. Full, normal range of motion. Neuro: Awake and alert, GCS 15, oriented to person, place, time, and situation. Motor strength 5/5 in all extremities. Sensory grossly intact. 13:50 ENT: TM's: no acute changes, Dental exam: normal, no cellulitis, no fractured teeth, no gum swelling, Vital Signs: 11:34 BP 125 / 89; Pulse 79; Resp 18 S; Temp 98.2(O); Pulse Ox 100% on R/A; Weight 73.94 kg aa5 (R); Height 5 ft. 6 in. (R); 12:46 BP 130 / 98; Pulse 72; Resp 16; Temp 98; Pulse Ox 100% ; bp 14:58 BP 127 / 78; Pulse 71; Resp 16; Temp 98; Pulse Ox 100% ; bp 11:34 Body Mass Index 26.31 (73.94 kg, 167.64 cm) aa5 MDM: 11:28 Patient medically screened. sb4 14:42 Data reviewed: vital signs, nurses notes, lab test result(s), radiologic studies, and sb4 as a result, I will discharge patient. Counseling: I had a detailed discussion with the patient and/or guardian regarding the historical points, exam findings, and any diagnostic results supporting the discharge/admit diagnosis, lab results, radiology results, to return to the emergency department if symptoms worsen or persist or if there are any questions or concerns that arise at home. 10/30 11:42 Order name: CBC with Diff; Complete Time: 12:58 sb4 10/30 11:42 Order name: CMP; Complete Time: 14:41 sb4 10/30 11:42 Order name: SARS RAPID; Complete Time: 13:34 sb4 10/30 11:42 Order name: Flu; Complete Time: 14:13 sb4 10/30 11:42 Order name: Head Brain Wo Cont CT; Complete Time: 12:20 sb4 10/30 11:42 Order name: IV Saline Lock; Complete Time: 12:38 sb4 10/30 11:42 Order name: Labs collected and sent; Complete Time: 12:38 sb4 10/30 13:04 Order name: Labs - recollect needed: recollect chemistries; Complete Time: 14:00 eb Administered Medications: 12:38 Drug: NS 0.9% IV 1000 ml IV at 1 bolus Per protocol; 1000 mL bolus Route: IV; Rate: 1 bp bolus; Site: right forearm; 15:01 Follow up: IV Status: Completed infusion; IV Intake: 1000ml bp 12:38 Drug: metoCLOPramide IVP 10 mg IVP once; over 1 to 2 minutes Route: IVP; Site: right bp forearm; 15:01 Follow up: Response: No adverse reaction bp 12:38 Drug: diphenhydrAMINE IVP 25 mg IVP once Route: IVP; Site: right forearm; bp 15:01 Follow up: Response: No adverse reaction bp 12:39 Drug: TORadol - Ketorolac IVP 15 mg IVP once Route: IVP; Site: right forearm; bp 15:01 Follow up: Response: No adverse reaction bp Disposition: 19:13 Co-signature as Attending Physician, Jacquelin Washington MD I agree with the assessment and cp3 plan of care. Disposition Summary: 10/31/23 14:42 Discharge Ordered Notes: Location: Home sb4 Problem: new sb4 Symptoms: have improved sb4 Condition: Stable sb4 Diagnosis - Headache sb4 Followup: sb4 - With: Emergency Department - When: As needed - Reason: Trouble breathing, Worsening of condition Discharge Instructions: - Discharge Summary Sheet sb4 - Migraine Headache, Dlix-so-Zoge sb4 Forms: - Work release form hb - Thank You Letter sb4 - Patient Portal Instructions sb4 - Leadership Thank You Letter sb4 Signatures: Dispatcher [employer] Jacquelin Hoff MD MD cp3 Tyra Sauceda RN RN aa5 Иван David RN RN bp Botello, Elizabeth eb Brown, Sophia, PA-C PAMavis sb4
--- NOTE | 2023-10-31 14:43 | ER ---
Nurse's Notes [facility] Name: Bonnie Rivers Age: 48 yrs Sex: Female : 1975 Arrival Date: 10/31/2023 Time: 11:16 Bed 9 Private MD: Diagnosis: Headache Presentation: 10/30 11:34 Chief complaint: Patient states: right jaw pain and low grade fever at home x 2-3 days aa5 ago. Pt denies toothache. Coronavirus screen: fever. Ebola Screen: Patient denies travel to an Ebola-affected area in the 21 days before illness onset. Initial Sepsis Screen: Does the patient meet any 2 criteria? No. Patient's initial sepsis screen is negative. Does the patient have a suspected source of infection? No. Patient's initial sepsis screen is negative. Risk Assessment: Do you want to hurt yourself or someone else? Patient reports no desire to harm self or others. Onset of symptoms was October 2023. 11:34 Method Of Arrival: Ambulatory aa5 11:34 Acuity: DARIA 3 aa5 Triage Assessment: 12:00 Headache History: The patient has had previous headaches and this one is similar to bp previous episodes. General: Appears in no apparent distress. Behavior is calm, cooperative, appropriate for age. Pain: Complains of pain in head Pain currently is 5 out of 10 on a pain scale. Pain began gradually, Also complains of no other associated symptoms. Neuro: Level of Consciousness is awake, alert, obeys commands, Oriented to Appropriate for age Reports headache. VP PLATFORMS: 11:35 LMP 10/30/2023, unknown aa5 Historical: - Allergies: 11:34 No Known Allergies; aa5 - PMHx: 11:34 Anxiety; Bipolar disorder; GERD; Hypertensive disorder; aa5 - PSHx: 11:34 section; aa5 - Immunization history:: Adult Immunizations unknown. - Social history:: Smoking status: Patient reports the use of cigarette tobacco products. Screenin:00 [facility] ED Fall Risk Assessment (Adult) History of falling in the last 3 months, bp including since admission No falls in past 3 months (0 pts) Confusion or Disorientation No (0 pts) Intoxicated or Sedated No (0 pts) Impaired Gait No (0 pts) Mobility Assist Device Used No (0 pt) Altered Elimination No (0 pt) Score/Fall Risk Level 0 - 2 = Low Risk. Abuse screen: Denies threats or abuse. Denies injuries from another. Nutritional screening: No deficits noted. Tuberculosis screening: No symptoms or risk factors identified. Assessment: 12:00 General: SEE TRIAGE NOTE. bp 12:48 Reassessment: IV INFUSING. RESULTS PENDING. bp 14:58 Reassessment: DC HOME AMBULATORY. Pain: Denies pain. bp Vital Signs: 11:34 BP 125 / 89; Pulse 79; Resp 18 S; Temp 98.2(O); Pulse Ox 100% on R/A; Weight 73.94 kg aa5 (R); Height 5 ft. 6 in. (R); 12:46 BP 130 / 98; Pulse 72; Resp 16; Temp 98; Pulse Ox 100% ; bp 14:58 BP 127 / 78; Pulse 71; Resp 16; Temp 98; Pulse Ox 100% ; bp 11:34 Body Mass Index 26.31 (73.94 kg, 167.64 cm) aa5 ED Course: 11:20 Patient arrived in ED. mg5 11:24 Jessa Reno PA-C is PHCP. sb4 11:24 Jacquelin Washington MD is Attending Physician. sb4 11:28 Arm band placed on. aa5 11:35 Triage completed. aa5 12:00 Patient has correct armband on for positive identification. bp 12:[address] via wheelchair. hb 12:15 Head Brain Wo Cont CT In Process Unspecified. EDMS 12:20 Иван David, RN is Primary Nurse. bp 12:40 Inserted saline lock: 20 gauge in right forearm, using aseptic technique. Blood bp collected. 12:40 SARS RAPID Sent. bp 12:40 Flu Sent. bp 12:40 CBC with Diff Sent. bp 12:40 CMP Sent. bp 13:00 Patient maintains SpO2 saturation greater than 95% on room air. hb 14:58 Provided Education on: N/A. bp 14:58 No provider procedures requiring assistance completed. IV discontinued, intact, bp bleeding controlled, No redness/swelling at site. Pressure dressing applied. Administered Medications: 12:38 Drug: NS 0.9% IV 1000 ml IV at 1 bolus Per protocol; 1000 mL bolus Route: IV; Rate: 1 bp bolus; Site: right forearm; 15:01 Follow up: IV Status: Completed infusion; IV Intake: 1000ml bp 12:38 Drug: metoCLOPramide IVP 10 mg IVP once; over 1 to 2 minutes Route: IVP; Site: right bp forearm; 15:01 Follow up: Response: No adverse reaction bp 12:38 Drug: diphenhydrAMINE IVP 25 mg IVP once Route: IVP; Site: right forearm; bp 15:01 Follow up: Response: No adverse reaction bp 12:39 Drug: TORadol - Ketorolac IVP 15 mg IVP once Route: IVP; Site: right forearm; bp 15:01 Follow up: Response: No adverse reaction bp Medication: 12:00 VIS not applicable for this client. bp Intake: 15:01 IV: 1000ml; Total: 1000ml. bp Outcome: 14:42 Discharge ordered by . tree4 14:58 Discharged to home ambulatory, bp 14:58 Condition: stable 14:58 Discharge instructions given to patient, Instructed on discharge instructions, follow up and referral plans. Demonstrated understanding of instructions, follow-up care, 15:01 Patient left the ED. bp Signatures: Dispatcher [employer] EDMS Tyra Sauceda RN RN aa5 Kallie Fajardo RN RN Иван David RN RN bp Jessa Reno PA-C PAMavis [id number] Nay Canales mg5 Corrections: (The following items were deleted from the chart) 12:16 11:34 Acuity: DARIA 4 aa5 aa5 12:46 12:00 [facility] ED Fall Risk Assessment (Adult) History of falling in the last 3 months, bp including since admission No falls in past 3 months (0 pts) bp
[2023-10-31 15:31] VITALS: BP 127/78; TEMP 98; O2SAT 100
== END ==
LOC: ER 11:16
DX: R51.9 Headache, unspecified (principal); R53.83 Other fatigue; Z11.52 Encounter for screening for COVID-19; Z72.0 Tobacco use
CPT/HCPCS: 96361; 85025; 36415; 80053; 87804 ×2; 70450; 96375; 96374; 99285; 87811; J2765; J1200; J7030

== ENCOUNTER 2024-05-20 09:35 | Emergency (ER) | payer OTHER ==
--- OUTSIDE RECORDS SUMMARY | 2024-05-20 09:38 | XMS REPORT | Continuity of Care Document ---
Author Name Unknown Address [address] [facility] [address]. [address] [place] [address] [facility] thconnect Address [address] [facility]. [address] [place] [address] Care Team Providers Care Merchandise Planning Manager Name Role Phone Alicja Daugherty Primary Care Physician Allergies, Adverse Reactions, Alerts Allergy Name Allergy Type Status Severity Reaction(s) Onset Date Inactive Date Treating Clinician Comments Source none (Not Checked) Propensi ty to adverse reaction to drug Active 8-02 00:00: 00 Delroy Umana Medications Ordered Medication Name Filled Medication Name Start Date Stop Date Current Medication? Ordering Clinician Indication Dosage Frequency Signature (SIG) Comments Components Source losartan 100 mg tablet 7-10 00:00: 00 Yes 1mg Delroy Umana Depo-Over [employer] Targeting Supervisor a 150 mg/mL intramuscul ar syringe 6-07 00:00: 00 Yes 1mg/mL Delroy Umana buspirone 7.5 mg tablet 5-24 00:00: 00 Yes mg Delroy Umana mirtazapine 45 mg tablet 0 5-24 00:00: 00 Yes 1mg Delroy Umana lamotrigine 100 mg tablet 0 5-24 00:00: 00 Yes 1mg Delroy Umana hydroxyzine HCl 25 mg tablet 0 5-21 00:00: 00 Yes 12mg Delroy Umana buspirone 5 mg tablet 0 3-29 00:00: 00 Yes mg Delroy Umana hydroxyzine HCl 25 mg tablet 0 3-29 00:00: 00 Yes 12mg Delroy Umana TAKE ONE (1) TABLET(S) BY MOUTH DAILY. 09-30 00:00: 00 Yes 100 Dleroy Umana TAKE 1 TABLET AT BEDTIME. 09-30 00:00: 00 Yes 45 Delroy Umana TAKE ONE (1) TABLET(S) BY MOUTH ONCE A DAY NEEDED. 09-30 00:00: 00 Yes Delroy Umana TAKE ONE (1) TABLET(S) BY MOUTH DAILY. 09-30 00:00: 00 Yes Delroy Umana DISSOLVE ONE (1) TABLET(S) BY MOUTH EVERY 2 HOURS NEEDED FOR HEADACHE. MAX DAILY DOSE IS 3 TABLETS EVERY 24 HOURS. 09-04 00:00: 00 Yes Delroy Umana TAKE ONE (1) TABLET(S) BY MOUTH EVERY SIX HOURS NEEDED FOR PAIN. 09-04 00:00: 00 Yes Delroy Umana TAKE ONE (1) TABLET BY MOUTH TWICE A DAY NEEDED FOR NAUSEA. 09-04 00:00: 00 Yes Delroy Umana TAKE ONE (1) TABLET(S) BY MOUTH DAILY. 09-04 00:00: 00 12-14 00:00 :00 No 100 Delroy Umana TAKE 1 TABLET THREE TIMES DAILY FOR 10 DAYS 08-20 00:00: 00 12-14 00:00 :00 No 10 Delroy Umana TAKE ONE (1) TABLET(S) BY MOUTH THREE TIMES A DAY FOR 10 DAYS. 08-19 00:00: 00 Yes Delroy Umana TAKE ONE (1) TABLET(S) BY MOUTH DAILY. 2022-08 00:00: 00 12-14 00:00 :00 No 100 Delroy Umana TAKE 1 TABLET TWICE A DAY 2022-08 00:00: 00 12-14 00:00 :00 No 100 Delroy Umana TAKE ONE (1) TABLET(S) BY MOUTH EVERY MORNING AND EVERY AFTERNOON. TAKE TWO (2) TABLETS BY MOUTH AT NIGHT. 2022-08 00:00: 00 12-14 00:00 :00 No 5 Delroy Umana TAKE ONE (1) TABLET(S) BY MOUTH DAILY. 2022-08 00:00: 00 12-14 00:00 :00 No 100 Delroy Umana TAKE 1 TABLET DAILY. 2022-08 2- 00:00: 00 12-14 00:00 :00 No 15 Delroy Umana TAKE 1 TABLET AT BEDTIME. 2022-08 2- 00:00: 00 12-14 00:00 :00 No 45 Delroy Umana TAKE ONE (1) TABLET(S) BY MOUTH DAILY. 2022-08 00:00: 00 Yes Delroy Umana TAKE ONE (1) TABLET(S) BY MOUTH EVERY MORNING AND EVERY AFTERNOON. TAKE TWO (2) TABLETS BY MOUTH AT NIGHT. 2022-08 0 00:00: 00 Yes Delroy Umana TAKE ONE (1) CAPSULE(S) BY MOUTH EVERY SIX HOURS FOR 10 DAYS. 05-05 00:00: 00 12-14 00:00 :00 No Delroy Bharat Umana TAKE ONE (1) TABLET(S) BY MOUTH EVERY EIGHT HOURS NEEDED FOR PAIN. 05-05 00:00: 00 12-14 00:00 :00 No Delroy Bharat Umana TAKE ONE (1) TABLET(S) BY MOUTH EVERY EIGHT HOURS NEEDED FOR MUSCLE SPASMS OR PAIN. 9- 00:00: 00 12-14 00:00 :00 No Delroy Bharat Umana TAKE TWO (2) TABLET(S) BY MOUTH EVERY SIX HOURS. 9- 00:00: 00 12-14 00:00 :00 No Delroy Bharat Umana TAKE ONE (1) TABLET(S) BY MOUTH EVERY EIGHT HOURS FOR 10 DAYS. 9-11 00:00: 00 12-14 00:00 :00 No Delroy Umana TAKE 1 TABLET DAILY. 03-23 00:00: 00 12-14 00:00 :00 No 100 Delroy Umana TAKE ONE (1) TABLET(S) BY MOUTH EVERY MORNING AND EVERY AFTERNOON. TAKE TWO (2) TABLETS BY MOUTH AT NIGHT. 8- 00:00: 00 12-14 00:00 :00 No 5 Delroy Umana TAKE 1 TABLET DAILY. 2023-0 8-07 00:00: 00 12-14 00:00 :00 No 15 Delroy F Dong TAKE 1 TABLET AT BEDTIME. 0 8-07 00:00: 00 12-14 00:00 :00 No 45 Delroy F Dong TAKE 1 TABLET DAILY. 0 7-07 00:00: 00 12-14 00:00 :00 No 15 Delroy F Dong TAKE ONE (1) TABLET(S) BY MOUTH DAILY AT BEDTIME. 7-07 00:00: 00 12-14 00:00 :00 No Delroy F Dong TAKE 1 TABLET DAILY. 6-07 00:00: 00 12-14 00:00 :00 No 100 Delroy F Dong TAKE ONE (1) TABLET(S) BY MOUTH AT BEDTIME. 6 00:00: 00 12-14 00:00 :00 No Delroy F Dong TAKE ONE (1) TABLET(S) BY MOUTH EVERY MORNING AND EVERY AFTERNOON. TAKE TWO (2) TABLETS BY MOUTH AT NIGHT. 605 00:00: 00 12-14 00:00 :00 No 5 Delroy F Dong TAKE ONE (1) TABLET(S) BY MOUTH AT BEDTIME. 5- 00:00: 00 12-14 00:00 :00 No Delroy F Dong TAKE ONE (1) TABLET(S) BY MOUTH DAILY. 5- 00:00: 00 12-14 00:00 :00 No Delroy Bharat Umana TAKE 1 TABLET DAILY. 5- 00:00: 00 12-14 00:00 :00 No 15 Delroy F Dong TAKE ONE (1) TABLET(S) BY MOUTH DAILY. 5- 00:00: 00 12-14 00:00 :00 No Delroy F Dong TAKE ONE (1) TABLET NEEDED TWICE DAILY. 5- 00:00: 00 12-14 00:00 :00 No Delroy F Dong TAKE ONE (1) TABLET(S) BY MOUTH EVERY TWELVE HOURS NEEDED FOR PAIN. -28 00:00: 00 12-14 00:00 :00 No Delroy Umana TAKE ONE (1) CAPSULE(S) BY MOUTH DAILY. 4-28 00:00: 00 12-14 00:00 :00 No Delroy Umana TAKE 1 TABLET DAILY. 4-17 00:00: 00 12-14 00:00 :00 No 15 Delroymurphy Umana TAKE ONE TABLET NEEDED TWICE DAILY. 4- 00:00: 00 12-14 00:00 :00 No 5 Delroymurphy Umana TAKE 1 TABLET AT BEDTIME. 4- 00:00: 00 12-14 00:00 :00 No 45 Delroymurphy Umana TAKE 1 TABLET DAILY. 4 00:00: 00 12-14 00:00 :00 No 100 Delroy Umana TAKE ONE (1) TABLET(S) BY MOUTH DAILY. 2-13 00:00: 00 12-14 00:00 :00 No Delroy Umana TAKE ONE (1) TABLET(S) BY MOUTH ONCE A DAY BEFORE BEDTIME. 2-13 00:00: 00 12-14 00:00 :00 No Delroy Bharat Umana TAKE ONE (1) TABLET(S) BY MOUTH DAILY AT BEDTIME. 2021-08 00:00: 00 12-14 00:00 :00 No Delroy Umana TAKE ONE (1) TABLET(S) BY MOUTH ONCE A DAY BEFORE BEDTIME. 2021-08 0-14 00:00: 00 12-14 00:00 :00 No Delroy Bharat Umana TAKE ONE (1) TABLET(S) BY MOUTH DAILY. 7-06 00:00: 00 12-14 00:00 :00 No Delroy F Dong TAKE ONE (1) TABLET(S) BY MOUTH EVERY MORNING. 7-06 00:00: 00 12-14 00:00 :00 No Delroy Bharat Umana TAKE ONE (1) TABLET(S) BY MOUTH AT BEDTIME. 7-06 00:00: 00 12-14 00:00 :00 No Delroy Umana TAKE ONE (1) TABLET(S) BY MOUTH AT BEDTIME. 01-26 00:00: 00 12-14 00:00 :00 No Delroy Bharat Umana TAKE 1 TABLET BY MOUTH ONCE DAILY IN THE MORNING 01-17 00:00: 00 12-14 00:00 :00 No Delroy Bharat Umana TAKE TWO (2) TABLET(S) BY MOUTH AT BEDTIME. 01-17 00:00: 00 12-14 00:00 :00 No Delroy Bharat Umana TAKE ONE (1) TABLET(S) BY MOUTH AT BEDTIME NEEDED. 01-02 00:00: 00 12-14 00:00 :00 No Delroy Bharat Umana TAKE ONE (1) TABLET(S) BY MOUTH TWICE A DAY WITH MEALS. 01-02 00:00: 00 12-14 00:00 :00 No Delroy Umana Vital Signs Vital Name Observation Time Observation Value Comments S ource BP Systolic 2024-03-18 13:47:00 Step hen F Dong BP Diastolic 2024-03-18 13:47:00 [place] phen F Dong Weight Measured 2024-03-18 13:47:00 Delroy Bharat Umana Height Measured 2024-03-18 13:47:00 Delroy Bharat Umana Body Temperature 2024-03-18 13:47:00 Delroy Bharat Umana Heart Rate 2024-03-18 13:47:00 Felipa en F Dong Respiratory Rate 2024-03-18 13:47:00 Delroy Bharat Umana BP Systolic 2024-01-22 09:49:00 133 mm[Hg] Step hen F Dong BP Diastolic 2024-01-22 09:49:00 84 mm[Hg] [place] phen F Dong Weight Measured 2024-01-22 09:49:00 162.40 pounds Delroy Bharat Umana Height Measured 2024-01-22 09:49:00 63.00 inches Delroy Bharat Umana Body Temperature 2024-01-22 09:49:00 97.90 degrees Delroy Bharat Umana Heart Rate 2024-01-22 09:49:00 80.00 /min Felipa en F Dong Respiratory Rate 2024-01-22 09:49:00 19.00 /min Delroy F Dong Height Measured 2023-12-03 11:32:00 63.00 inches Delroy F Dong Body Temperature 2023-12-03 11:32:00 98.10 degrees Delroy F Dong Heart Rate 2023-12-03 11:32:00 79.00 /min Felipa en F Dong Respiratory Rate 2023-12-03 11:32:00 Delroy F Dong BP Systolic 2023-12-03 11:32:00 120 mm[Hg] Step hen F Dong BP Diastolic 2023-12-03 11:32:00 84 mm[Hg] Brenton phen F Dong Weight Measured 2023-12-03 11:32:00 159.00 pounds Delroy F Dong BP Systolic 2023-09-30 16:06:00 Step hen F Dong BP Diastolic 2023-09-30 16:06:00 [place] phen F Dong Weight Measured 2023-09-30 16:06:00 Delroy F Dong Height Measured 2023-09-30 16:06:00 Delroy F Dong Body Temperature 2023-09-30 16:06:00 Delroy F Dong Heart Rate 2023-09-30 16:06:00 Felipa en F Dong Respiratory Rate 2023-09-30 16:06:00 Delroy F Dong BP Systolic 2023-07-18 12:30:00 104 mm[Hg] Step hen F Dong BP Diastolic 2023-07-18 12:30:00 72 mm[Hg] [place] phen F Dong Weight Measured 2023-07-18 12:30:00 159.60 pounds Delroy F Dong Height Measured 2023-07-18 12:30:00 63.00 inches Delroy F Dong Body Temperature 2023-07-18 12:30:00 98.40 degrees Delroy F Dong Heart Rate 2023-07-18 12:30:00 79.00 /min Felipa en F Dong Respiratory Rate 2023-07-18 12:30:00 18.00 /min Delroy F Dong BP Systolic 2023-07-17 13:20:00 176 mm[Hg] Step hen F Dong BP Diastolic 2023-07-17 13:20:00 60 mm[Hg] [place] phen F Dong Weight Measured 2023-07-17 13:20:00 Delroy F Dong Height Measured 2023-07-17 13:20:00 Delroy F Dong Body Temperature 2023-07-17 13:20:00 Delroy Umana Heart Rate 2023-07-17 13:20:00 88.00 /min Felipa Umana Respiratory Rate 2023-07-17 13:20:00 Delroy Umana Encounters Start Date/Time End Date/Time Encounter Type Admission Type Attending [facility] Care Department Encounter ID Source 2024 10:11:12 2024 10:11:12 Outpatient SFA SFA [id number] Delroy Umana 2024-03-18 00:00:00 2024-03-18 00:00:00 Outpatient Visit SFA [id number] Delroy Umana 2024-01-22 09:41:09 2024-01-22 09:41:09 Outpatient SFA SFA [id number] Delroy Umana 2024-01-22 00:00:00 2024-01-22 00:00:00 Outpatient Visit SFA [id number] Delroy Umana 2024-01-08 13:25:34 2024-01-08 13:25:34 Outpatient SFA SFA [id number] Delroy Umana 2024-01-08 00:00:00 2024-01-08 00:00:00 Outpatient Visit SFA [id number] Delroy Umana 2024-01-05 15:06:23 2024-01-05 15:06:23 Outpatient SFA SFA [id number] Delroy Umana 2024-01-05 00:00:00 2024-01-05 00:00:00 Outpatient Visit SFA [id number] Delroy Umana 2023-12-03 11:41:47 2023-12-03 11:41:47 Outpatient SFA SFA [id number] Delroy Umana 2023-12-03 00:00:00 2023-12-03 00:00:00 Outpatient Visit [facility] [id number] Delroy Umana 2023-07-18 12:16:07 2023-07-18 12:16:07 Outpatient SFA [facility] [id number] Delroy Umana 2023-03-23 13:11:22 2023-03-23 13:11:22 Outpatient [facility] [id number] Delroy Umana 2023-02-20 15:44:58 2023-02-20 15:44:58 Outpatient [facility] [id number] Delroy Umana Results Test Description Test Time Test Comments Results Result Co mments Source CBC W/AUTO [id number] 00:00:00* Test Item Value Reference Range Interpretation Comme nts WBC (test code = 1001) 6.9 K/UL RBC (test code = 1002) 4.06 M/UL HEMOGLOBIN (test code = 1003) 12.9 G/DL HEMATOCRIT (test code = 1004) 37.9 % MCV (test code = 1005) 93.3 fL MCH (test code = 1006) 31.8 PG MCHC (test code = 1007) 34.0 G/DL RDW (test code = 1038) 11.7 % NEUTROPHILS (test code = 1008) 59.1 % LYMPHOCYTES (test code = 1010) 27.3 % MONOCYTES (test code = 1011) 10.6 % EOSINOPHILS (test code = 1012) 2.2 % BASOPHILS (test code = 1013) 0.7 % IMMATURE GRANULOCYTES (test code = 1036) 0.1 % NUCLEATED RBCS (test code = 1065) 0.0 /100WBC'S PLATELET COUNT (test code = 1015) 270 K/UL ABSOLUTE NEUTROPHILS (test c ode = 1066) 4.07 K/UL ABSOLUTE LYMPHOCYTES (test c ode = 1067) 1.88 K/UL ABSOLUTE MONOCYTES (test cod e = 1068) 0.73 K/UL ABSOLUTE EOSINOPHILS (test c ode = 1040) 0.15 K/UL ABSOLUTE BASOPHILS (test cod e = 1069) 0.05 K/UL ABS IMMATURE GRANULOCYTES (t est code = 1020) 0.01 K/UL ABS NUCLEATED RBCS (test cod e = 62751) 0.00 K/UL Delroy UmanaC W/AUTO [id number] 00:00:00* Test Item Value Reference Range Interpretation Comme nts WBC (test code = 1001) 6.9 K/UL RBC (test code = 1002) 4.06 M/UL HEMOGLOBIN (test code = 1003) 12.9 G/DL HEMATOCRIT (test code = 1004) 37.9 % MCV (test code = 1005) 93.3 fL MCH (test code = 1006) 31.8 PG MCHC (test code = 1007) 34.0 G/DL RDW (test code = 1038) 11.7 % NEUTROPHILS (test code = 1008) 59.1 % LYMPHOCYTES (test code = 1010) 27.3 % MONOCYTES (test code = 1011) 10.6 % EOSINOPHILS (test code = 1012) 2.2 % BASOPHILS (test code = 1013) 0.7 % IMMATURE GRANULOCYTES (test code = 1036) 0.1 % NUCLEATED RBCS (test code = 1065) 0.0 /100WBC'S PLATELET COUNT (test code = 1015) 270 K/UL ABSOLUTE NEUTROPHILS (test c ode = 1066) 4.07 K/UL ABSOLUTE LYMPHOCYTES (test c ode = 1067) 1.88 K/UL ABSOLUTE MONOCYTES (test cod e = 1068) 0.73 K/UL ABSOLUTE EOSINOPHILS (test c ode = 1040) 0.15 K/UL ABSOLUTE BASOPHILS (test cod e = 1069) 0.05 K/UL ABS IMMATURE GRANULOCYTES (t est code = 1020) 0.01 K/UL ABS NUCLEATED RBCS (test cod e = 14724) 0.00 K/UL Delroy UmanaCULTURE, [id number] 13:56:42SPECIMEN NUMBER: [id number] CULTURE, URINE SPECIMEN NUMBER: [id number] SPECIMEN COMMENT: URINE SOURCE: URINE REPORT STATUS: FINAL ISOLATE NUMBER 1: ORGANISM: 07/20/2023 50-100,000 CFU/ML GRAM NEGATIVE BACILLI IDENTIFICATION: 07/22/2023 ESCHERICHIA COLI E. COLI AMOXICILLIN/CA SENSITIVE<=8/4AMPICILLIN SENSITIVE <=8CEFAZOLIN SENSITIVE 4CEFTRIAXONE SENSITIVE <=1CIPROFLOXACIN RESISTANT >2LEVOFLOXACIN RESISTANT >4NITROFURANTOIN SENSITIVE <=32PIP/TAZOBAC SENSITIVE <=16TETRACYCLINE RESISTANT >8TOBRAMYCIN SENSITIVE <=4TRIMETH/SULFA SENSITIVE <=2/38 NOTE: NUMBERS DISPLAYED REPRESENT MINIMUM INHIBITORY CONCENTRATION (JAYDE) WHICH IS EXPRESSED IN MCG/ML.CULTURE, [id number] 00:00:00* Test Item Value Reference Range Interpretation Comme nts CULTURE, URINE (test code = 25350) SPECIMEN NUMBER: [id number] Delroy HatchURE, [id number] 00:00:00* Test Item Value Reference Range Interpretation Comme nts CULTURE, URINE (test code = 41974) SPECIMEN NUMBER: [id number] Delroy Nielsen, [id number] 00:00:00* Test Item Value Reference Range Interpretation Comme nts CULTURE, URINE (test code = 25226) SPECIMEN NUMBER: [id number] Delroy Nielsen, [id number] 00:00:00* Test Item Value Reference Range Interpretation Comme nts CULTURE, URINE (test code = 06904) SPECIMEN NUMBER: [id number] Delroy Nielsen, [id number] 00:00:00* Test Item Value Reference Range Interpretation Comme nts CULTURE, URINE (test code = 15952) SPECIMEN NUMBER: [id number] Delroy UmanaCOMPREHENSIVE METABOLIC [id number] 01:01:45* Test Item Value Reference Range Interpretation Comme nts GLUCOSE (test code = 2217) 87 MG/DL 70-99 BUN (test code = 2208) 13 MG/DL 6-20 CREATININE (test code = 2214) 0.77 MG/DL 0.60-1.30 eGFR (2020 CKD-EPI) (test co de = 88841) 96 ML/MIN/1.73 >60 CALC BUN/CREAT (test code = 2235) 17 RATIO 6-28 SODIUM (test code = 2231) 141 MEQ/L 133-146 POTASSIUM (test code = 2228) 4.5 MEQ/L 3.5-5.4 CHLORIDE (test code = 2215) 107 MEQ/L 95-107 CARBON DIOXIDE (test code = 2206) 24 MEQ/L 19-31 CALCIUM (test code = 2209) 9.2 MG/DL 8.5-10.5 PROTEIN, TOTAL (test code = 2229) 6.9 G/DL 6.1-8.3 ALBUMIN (test code = 2201) 4.4 G/DL 3.5-5.2 CALC GLOBULIN (test code = 2240) 2.5 G/DL 1.9-3.7 CALC A/G RATIO (test code = 2234) 1.8 RATIO 1.0-2.6 BILIRUBIN, TOTAL (test code = 2206) 0.3 MG/DL <=1.2 ALKALINE PHOSPHATASE (test code = 2203) 86 U/L 40-118 AST (test code = 221) 14 U/L 9-40 ALT (test code = 221) 10 U/L 5-40 LIPID [id number] 01:01:45* Test Item Value Reference Range Interpretation Comme nts CHOLESTEROL (test code = 2209) 133 MG/DL <200 TRIGLYCERIDES (test code = 2232) 76 MG/DL <150 HDL CHOLESTEROL (test code = 0) 42 MG/DL >39 CALC LDL CHOL (test code = 2237) 75 MG/DL <100 NOTE: CALCULATED LDL IS BASED ON LINDA-MELIVN METHOD WHICHINCLUDES ADJUSTABLE TRIGLYCERIDE:VLDL CHOLESTEROL RATIO.THIS FACTOR VARIES BY MEASURED TRIGLYCERIDE AND NON-HDLCHOLESTEROL CONCENTRATIONS WITH INCREASED CALCULATED LDL SEENIN HIGHER TRIGLYCERIDE OR LOWER NON-HDL SPECIMENS. FOR MOREINFORMATION, SEE CLIENT ANNOUNCEMENT AT [email or web address] RISK RATIO LDL/HDL (test code = 2238) 1.79 RATIO <3.22 UNLESS OTHERW ISE INDICATED, ALL TESTING PERFORMED AT [facility] [address] [place] [address] [address] COMPLIANCE COORDINATOR: HENRY LOVE M.D. CLIA NUMBER [id number] [facility] [place]. [id number] COMPREHENSIVE METABOLIC [id number] 00:00:00* Test Item Value Reference Range Interpretation Comme nts GLUCOSE (test code = 7) 87 MG/DL BUN (test code = 2207) 13 MG/DL CREATININE (test code = 4) 0.77 MG/DL eGFR (2020 CKD-EPI) (test co de = 73316) 96 ML/MIN/1.73 CALC BUN/CREAT (test code = 2235) 17 RATIO SODIUM (test code = 2231) 141 MEQ/L POTASSIUM (test code = 2228) 4.5 MEQ/L CHLORIDE (test code = 2215) 107 MEQ/L CARBON DIOXIDE (test code = 2206) 24 MEQ/L CALCIUM (test code = 2209) 9.2 MG/DL PROTEIN, TOTAL (test code = 2229) 6.9 G/DL ALBUMIN (test code = 2201) 4.4 G/DL CALC GLOBULIN (test code = 2240) 2.5 G/DL CALC A/G RATIO (test code = 2234) 1.8 RATIO BILIRUBIN, TOTAL (test code = 2207) 0.3 MG/DL ALKALINE PHOSPHATASE (test code = 2204) 86 U/L AST (test code = 2218) 14 U/L ALT (test code = 2219) 10 U/L Delroy Nicholson LudlowLIPID [id number] 00:00:00* Test Item Value Reference Range Interpretation Comme nts CHOLESTEROL (test code = 2210) 133 MG/DL TRIGLYCERIDES (test code = 2232) 76 MG/DL HDL CHOLESTEROL (test code = 2220) 42 MG/DL CALC LDL CHOL (test code = 2237) 75 MG/DL RISK RATIO LDL/HDL (test cod e = 2238) 1.79 RATIO Delroy Nicholson DongCOMPREHENSIVE METABOLIC [id number] 00:00:00* Test Item Value Reference Range Interpretation Comme nts GLUCOSE (test code = 2217) 87 MG/DL BUN (test code = 2208) 13 MG/DL CREATININE (test code = 2214) 0.77 MG/DL eGFR (2020 CKD-EPI) (test co de = 79706) 96 ML/MIN/1.73 CALC BUN/CREAT (test code = 2235) 17 RATIO SODIUM (test code = 2231) 141 MEQ/L POTASSIUM (test code = 2228) 4.5 MEQ/L CHLORIDE (test code = 2215) 107 MEQ/L CARBON DIOXIDE (test code = 2206) 24 MEQ/L CALCIUM (test code = 2209) 9.2 MG/DL PROTEIN, TOTAL (test code = 2229) 6.9 G/DL ALBUMIN (test code = 2201) 4.4 G/DL CALC GLOBULIN (test code = 2240) 2.5 G/DL CALC A/G RATIO (test code = 2234) 1.8 RATIO BILIRUBIN, TOTAL (test code = 2207) 0.3 MG/DL ALKALINE PHOSPHATASE (test code = 2204) 86 U/L AST (test code = 2218) 14 U/L ALT (test code = 2219) 10 U/L Delroy Nicholson AustinLIPID [id number] 00:00:00* Test Item Value Reference Range Interpretation Comme nts CHOLESTEROL (test code = 2210) 133 MG/DL TRIGLYCERIDES (test code = 2232) 76 MG/DL HDL CHOLESTEROL (test code = 2220) 42 MG/DL CALC LDL CHOL (test code = 2237) 75 MG/DL RISK RATIO LDL/HDL (test cod e = 2238) 1.79 RATIO Delroy UmanaCOMPREHENSIVE METABOLIC [id number] 00:00:00* Test Item Value Reference Range Interpretation Comme nts GLUCOSE (test code = 2217) 87 MG/DL BUN (test code = 2208) 13 MG/DL CREATININE (test code = 2214) 0.77 MG/DL eGFR (2020 CKD-EPI) (test co de = 54712) 96 ML/MIN/1.73 CALC BUN/CREAT (test code = 2235) 17 RATIO SODIUM (test code = 2231) 141 MEQ/L POTASSIUM (test code = 2228) 4.5 MEQ/L CHLORIDE (test code = 2215) 107 MEQ/L CARBON DIOXIDE (test code = 2206) 24 MEQ/L CALCIUM (test code = 2209) 9.2 MG/DL PROTEIN, TOTAL (test code = 2229) 6.9 G/DL ALBUMIN (test code = 2201) 4.4 G/DL CALC GLOBULIN (test code = 2240) 2.5 G/DL CALC A/G RATIO (test code = 2234) 1.8 RATIO BILIRUBIN, TOTAL (test code = 2207) 0.3 MG/DL ALKALINE PHOSPHATASE (test code = 2204) 86 U/L AST (test code = 2218) 14 U/L ALT (test code = 2219) 10 U/L Delroy Nicholson AustinLIPID [id number] 00:00:00* Test Item Value Reference Range Interpretation Comme nts CHOLESTEROL (test code = 2210) 133 MG/DL TRIGLYCERIDES (test code = 2232) 76 MG/DL HDL CHOLESTEROL (test code = 2220) 42 MG/DL CALC LDL CHOL (test code = 2237) 75 MG/DL RISK RATIO LDL/HDL (test cod e = 2238) 1.79 RATIO Delroy UmanaCOMPREHENSIVE METABOLIC [id number] 00:00:00* Test Item Value Reference Range Interpretation Comme nts GLUCOSE (test code = 2217) 87 MG/DL BUN (test code = 2208) 13 MG/DL CREATININE (test code = 2214) 0.77 MG/DL eGFR (2020 CKD-EPI) (test co de = 73764) 96 ML/MIN/1.73 CALC BUN/CREAT (test code = 2235) 17 RATIO SODIUM (test code = 2231) 141 MEQ/L POTASSIUM (test code = 2228) 4.5 MEQ/L CHLORIDE (test code = 2215) 107 MEQ/L CARBON DIOXIDE (test code = 2206) 24 MEQ/L CALCIUM (test code = 2209) 9.2 MG/DL PROTEIN, TOTAL (test code = 2229) 6.9 G/DL ALBUMIN (test code = 2201) 4.4 G/DL CALC GLOBULIN (test code = 2240) 2.5 G/DL CALC A/G RATIO (test code = 2234) 1.8 RATIO BILIRUBIN, TOTAL (test code = 2207) 0.3 MG/DL ALKALINE PHOSPHATASE (test code = 2204) 86 U/L AST (test code = 2218) 14 U/L ALT (test code = 2219) 10 U/L Delroy Nicholson AustinLIPID [id number] 00:00:00* Test Item Value Reference Range Interpretation Comme nts CHOLESTEROL (test code = 2210) 133 MG/DL TRIGLYCERIDES (test code = 2232) 76 MG/DL HDL CHOLESTEROL (test code = 2220) 42 MG/DL CALC LDL CHOL (test code = 2237) 75 MG/DL RISK RATIO LDL/HDL (test cod e = 2238) 1.79 RATIO Delroy UmanaCOMPREHENSIVE METABOLIC [id number] 00:00:00* Test Item Value Reference Range Interpretation Comme nts GLUCOSE (test code = 2217) 87 MG/DL BUN (test code = 2208) 13 MG/DL CREATININE (test code = 2214) 0.77 MG/DL eGFR (2020 CKD-EPI) (test co de = 19271) 96 ML/MIN/1.73 CALC BUN/CREAT (test code = 2235) 17 RATIO SODIUM (test code = 2231) 141 MEQ/L POTASSIUM (test code = 2228) 4.5 MEQ/L CHLORIDE (test code = 2215) 107 MEQ/L CARBON DIOXIDE (test code = 2206) 24 MEQ/L CALCIUM (test code = 2209) 9.2 MG/DL PROTEIN, TOTAL (test code = 2229) 6.9 G/DL ALBUMIN (test code = 2201) 4.4 G/DL CALC GLOBULIN (test code = 2240) 2.5 G/DL CALC A/G RATIO (test code = 2234) 1.8 RATIO BILIRUBIN, TOTAL (test code = 2207) 0.3 MG/DL ALKALINE PHOSPHATASE (test code = 2204) 86 U/L AST (test code = 2218) 14 U/L ALT (test code = 2219) 10 U/L Delroy UmanaLIPID [id number] 00:00:00* Test Item Value Reference Range Interpretation Comme nts CHOLESTEROL (test code = 2210) 133 MG/DL TRIGLYCERIDES (test code = 2232) 76 MG/DL HDL CHOLESTEROL (test code = 2220) 42 MG/DL CALC LDL CHOL (test code = 2237) 75 MG/DL RISK RATIO LDL/HDL (test cod e = 2238) 1.79 RATIO Delroy Umana Notes Date/Time Note Provider Source [facility]2024-06-07 00:00:00 [facility]2024-05-24 00:00:00 [facility]2024-05-21 00[facility]
[2024-05-20] MEDS ORDERED: DIAZEPAM 5 MG TABLET ONE (11:47)
[2024-05-20] MEDS ORDERED: dexAMETHasone 10 MG/ML VIAL ONE (11:47)
[2024-05-20] MEDS ORDERED: NA CHLORIDE 0.9% 1,000 ML ONE (11:47)
[2024-05-20] MEDS ORDERED: KETOROLAC 30 MG/ML INJ ONE (11:47)
[2024-05-20] MEDS ORDERED: ONDANSETRON 4 MG/2 ML VIAL ONE (11:47)
[2024-05-20 11:56] LABS: Absolute Eosinophils 0.1 K/uL (0-0.5); Absolute Lymphocytes (CBC) 2.4 K/uL (0.7-4.9); Absolute Monocytes 0.5 K/uL (0.1-1.3); Absolute Neutrophil 5.5 K/uL (1.8-8.0); Basophils % 0.5 % (0-1.3); Eosinophils % 1.2 % (0-4.4); Hematocrit 38.8 % (36.0-45.0); Hemoglobin 12.8 g/dL (12.0-15.0); Lymphocytes % 28.4 % (15.3-44.8); MCH 31.5 pg (27.0-35.0); MCV 95.3 fL (80-100); MPV 8.3 fL (7.6-11.3); Monocytes % 5.7 % (3.3-12.3); Neutrophils % 64.2 % (41.7-73.7); Platelets 261 thou/uL (152-406); RBC Red Blood Cell Count 4.07 M/uL (3.86-4.86); Red Cell Distribution Width 12.8 % (12.1-15.2)
[2024-05-20 12:09] LABS: Albumin 3.8 g/dL (3.4-5.0); Anion Gap 6.6 mEq/L (5.0-15.0); Bilirubin Total 0.3 mg/dL (0.2-1.0); Potassium 3.6 mEq/L (3.5-5.1); Protein, Total 7.8 g/dL (6.4-8.2)
--- NOTE | 2024-05-20 13:55 | RAD REPORT ---
EXAMINATION: CT LUMBAR SPINE WITHOUT CONTRAST CLINICAL INDICATION: Female, 49 years old. PAIN TECHNIQUE: Axial CT images were obtained through the lumbar spine in soft tissue and bone windows wit hout intravenous contrast. Coronal and Sagittal reformatted images were created from the data set. One or more of the following dose reduction techniques were used: Automated exposure control, adjustm ent of the mA and/ or kV according to patient size, and/or iterative reconstruction. Unless otherwise specified, incidental findings do not require dedicated imaging follow-up. COMPARISON: No prior exam. FINDINGS: For purposes of this dictation, it is assumed that there are 5 non rib-bearing lumbar type vertebrae, and the most caudal fully segmented lumbar vertebra is labeled L5. ALIGNMENT: The lumbar spine demonstrates normal alignment without scoliosis or spondylolisthesis. BONES: No significant soft tissue abnormalities. No aggressive osseous lesions. DISCS: Mild generalized spondylosis is present, predominantly in the form of posterior disc bulges. S mall disc herniations probably present L2-3 and L5-S1. LEVELS: No significant spinal canal or neural foraminal stenosis. No visualized abnormality within th e spinal canal. SOFT TISSUE: Uterus appears enlarged, partially visualized. IMPRESSION: No acute lumbar spine abnormalities. There is a generalized mild spondylosis of the lumbar spine with several levels of disc bulging and s mall herniations suspected. If further evaluation of disc disease is clinically needed, recommend nonemergent MRI follow-up.
--- NOTE | 2024-05-20 14:05 | ER ---
Nurse's Notes [facility] Name: Bonnie Rivers Age: 49 yrs Sex: Female : 1975 Arrival Date: 05/20/2024 Time: 09:35 Bed 8 Private MD: Diagnosis: Low back pain;Sciatica, unspecified side;Spondylolysis, lumbar region Presentation: 05/20 09:58 Chief complaint: Patient states: she has been having lower back pain for a few days. ap3 patient rates her pain as a 9/10 on the pain scale at this time. Coronavirus screen: At this time, the client does not indicate any symptoms associated with coronavirus-19. Ebola Screen: No symptoms or risks identified at this time. Initial Sepsis Screen: Does the patient meet any 2 criteria? No. Patient's initial sepsis screen is negative. Does the patient have a suspected source of infection? No. Patient's initial sepsis screen is negative. Risk Assessment: Do you want to hurt yourself or someone else? Patient reports no desire to harm self or others. Onset of symptoms is unknown. 09:58 Method Of Arrival: Ambulatory ap3 09:58 Acuity: DARIA 4 ap3 Triage Assessment: 09:59 General: Appears in no apparent distress. Behavior is calm, cooperative, appropriate ap3 for age. Pain: Complains of pain in low back area Pain currently is 9 out of 10 on a pain scale. Neuro: Level of Consciousness is awake, alert, obeys commands, Oriented to person, place, time, situation, Appropriate for age. Cardiovascular: Patient's skin is warm and dry. Respiratory: Airway is patent Respiratory effort is even, unlabored, Respiratory pattern is regular, symmetrical. 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 - Infectious Disease History:: Denies. - Social history:: Smoking status: Patient reports the use of cigarette tobacco products, smokes one-half pack cigarettes per day. Screenin:59 [facility] ED Fall Risk Assessment (Adult) History of falling in the last 3 months, ap3 including since admission No falls in past 3 months (0 pts) Confusion or Disorientation No (0 pts) Intoxicated or Sedated No (0 pts) Impaired Gait No (0 pts) Mobility Assist Device Used No (0 pt) Altered Elimination No (0 pt) Score/Fall Risk Level 0 - 2 = Low Risk Oriented to surroundings, Maintained a safe environment, Educated pt \T\ family on fall prevention, incl call for assistance when getting out of bed, Assessed \T\ reinforced patient's understanding of fall precautions, Hourly rounding (assess needs \T\ fall precautionary measures) done, Used ambulatory aids as needed (educated on \T\ assisted with), Used gait belt as appropriate. Abuse screen: Denies threats or abuse. Nutritional screening: No deficits noted. Tuberculosis screening: No symptoms or risk factors identified. Assessment: 11:53 General: Appears in no apparent distress. Behavior is calm, cooperative. Pain: mb9 Complains of pain in back Pain does not radiate. Pain currently is 8 out of 10 on a pain scale. Quality of pain is described as throbbing, Pain began suddenly. Neuro: Awad Agitation-Sedation Scale (RASS): 0 - Alert and Calm Level of Consciousness is awake, alert, obeys commands, Oriented to person, place, time, situation, Appropriate for age. Cardiovascular: Patient's skin is warm and dry. Respiratory: Airway is patent Respiratory effort is even, unlabored, Respiratory pattern is regular, symmetrical. GI: No signs and/or symptoms were reported involving the gastrointestinal system. : Denies burning with urination, pain. EENT: No signs and/or symptoms were reported regarding the EENT system. Derm: Skin is pink, warm \T\ dry. Musculoskeletal: Range of motion: intact in all extremities. Vital Signs: 09:58 BP 127 / 85; Pulse 83; Resp 17; Temp 98.6; Pulse Ox 100% ; Weight 76.2 kg; Height 5 ft. ap3 6 in. ; Pain 9/10; 13:27 BP 113 / 87; Pulse 80; Resp 16; Pulse Ox 100% on R/A; mb9 09:58 Body Mass Index 27.12 (76.20 kg, 167.64 cm) ap3 09:58 Pain Scale: Adult ap3 ED Course: 09:38 Patient arrived in ED. im 09:38 Adarsh Sanford MD is Attending Physician. shanna 09:59 Triage completed. ap3 10:00 Arm band placed on right wrist. ap3 11:34 Jackie Marie, RENETTA is Primary Nurse. mb9 11:52 Initial lab(s) drawn, by me, sent to lab. Inserted saline lock: 20 gauge in right mb9 antecubital area, using aseptic technique. Blood collected. Flushed with 10 mL NS. 11:53 Placed in gown. Bed in low position. Call light in reach. Side rails up X 1. Provided mb9 Education on: press call light if needing anything. Client placed on continuous cardiac and pulse oximetry monitoring. NIBP monitoring applied. Door closed. Noise minimized. Warm blanket given. Pillow given. 11:54 No provider procedures requiring assistance completed. mb9 11:54 Comprehensive Metabolic Panel Sent. mb9 11:54 CBC with Diff Sent. mb9 13:49 CT Lumbar Spine Wo Con In Process Unspecified. EDMS 14:04 Juventino Vidal MD is Referral Physician. shanna 14:13 IV discontinued, intact, bleeding controlled, No redness/swelling at site. Pressure ap3 dressing applied. Administered Medications: 11:48 Drug: NS 0.9% IV 1000 ml IV at 1 bolus Per protocol; 1000 mL bolus Route: IV; Rate: 1 mb9 bolus; Site: right antecubital; 12:50 Follow up: Response: No adverse reaction; IV Status: Completed infusion mb9 11:49 Drug: Ondansetron IVP 4 mg IVP once; over 2 minutes Route: IVP; Site: right antecubital;mb9 12:50 Follow up: Response: No adverse reaction mb9 11:50 Drug: Ketorolac IVP 30 mg IVP once Route: IVP; Site: right antecubital; mb9 12:50 Follow up: Response: No adverse reaction mb9 11:54 Drug: Decadron - Dexamethasone IVP 10 mg IVP once Route: IVP; Site: right antecubital; mb9 12:50 Follow up: Response: No adverse reaction mb9 11:54 Not Given (Patient Refused): fentanyl (pf)50 mcg IVP once mb9 11:54 Drug: Diazepam PO 5 mg PO once Route: PO; mb9 12:50 Follow up: Response: No adverse reaction mb9 Medication: 11:53 VIS not applicable for this client. mb9 Outcome: 14:05 Discharge ordered by . shanna 14:13 Discharged to home ambulatory, ap3 14:13 Condition: good 14:13 Discharge instructions given to patient, Instructed on discharge instructions, follow up and referral plans. medication usage, Demonstrated understanding of instructions, follow-up care, medications, Prescriptions given X 4, 14:13 Patient left the ED. ap3 Signatures: Dispatcher [employer] EDMS Adarsh Sanford MD MD cha Prokisch, Amanda RN RN ap3 Jackie Marie RN RN mb9 Zeina Conde
--- NOTE | 2024-05-20 14:05 | EDPHYS ---
Physician Documentation [facility] Name: Bonnie Rivers Age: 49 yrs Sex: Female : 1975 Arrival Date: 05/20/2024 Time: 09:35 Bed 8 Private MD: Adarsh Avelar HPI: 05/20 13:02 This 49 yrs old Female presents to ER via Ambulatory with complaints of Low shanna Back Pain. 13:02 The patient presents with pain that is acute, and decreased range of motion. The shanna symptoms are located in the low back, lumbar area, left low back and right low back. The pain does not radiate. The problem was sustained when bending over, when lifting. Modifying factors: The patient symptoms are alleviated by remaining still, the patient symptoms are aggravated by bending. Associated signs and symptoms: The patient has no apparent associated signs or symptoms. The patient has experienced similar episodes in the past, a few times. 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 - Infectious Disease History:: Denies. - Social history:: Smoking status: Patient reports the use of cigarette tobacco products, smokes one-half pack cigarettes per day. ROS: 13:23 Constitutional: Negative for fever, chills, and weight loss, Eyes: Negative for injury, shanna pain, redness, and discharge, ENT: Negative for injury, pain, and discharge, Neck: Negative for injury, pain, and swelling, Cardiovascular: Negative for chest pain, palpitations, and edema, Respiratory: Negative for shortness of breath, cough, wheezing, and pleuritic chest pain, Abdomen/GI: Negative for abdominal pain, nausea, vomiting, diarrhea, and constipation, : Negative for injury, bleeding, discharge, and swelling, MS/Extremity: Negative for injury and deformity, Skin: Negative for injury, rash, and discoloration, Neuro: Negative for headache, weakness, numbness, tingling, and seizure, Psych: Negative for depression, anxiety, suicide ideation, homicidal ideation, and hallucinations, Allergy/Immunology: Negative for hives, rash, and allergies, Endocrine: Negative for neck swelling, polydipsia, polyuria, polyphagia, and marked weight changes, Hematologic/Lymphatic: Negative for swollen nodes, abnormal bleeding, and unusual bruising, 13:23 Back: Positive for injury or acute deformity, Exam: 13:23 Constitutional: This is a well developed, well nourished patient who is awake, alert, shanna and in no acute distress. Head/Face: Normocephalic, atraumatic. Eyes: Pupils equal round and reactive to light, extra-ocular motions intact. Lids and lashes normal. Conjunctiva and sclera are non-icteric and not injected. Cornea within normal limits. Periorbital areas with no swelling, redness, or edema. ENT: Nares patent. No nasal discharge, no septal abnormalities noted. Tympanic membranes are normal and external auditory canals are clear. Oropharynx with no redness, swelling, or masses, exudates, or evidence of obstruction, uvula midline. Mucous membranes moist. Neck: Trachea midline, no thyromegaly or masses palpated, and no cervical lymphadenopathy. Supple, full range of motion without nuchal rigidity, or vertebral point tenderness. No Meningismus. Chest/axilla: Normal chest wall appearance and motion. Nontender with no deformity. No lesions are appreciated. Cardiovascular: Regular rate and rhythm with a normal S1 and S2. No gallops, murmurs, or rubs. Normal PMI, no JVD. No pulse deficits. Respiratory: Lungs have equal breath sounds bilaterally, clear to auscultation and percussion. No rales, rhonchi or wheezes noted. No increased work of breathing, no retractions or nasal flaring. Abdomen/GI: Soft, non-tender, with normal bowel sounds. No distension or tympany. No guarding or rebound. No evidence of tenderness throughout. Skin: Warm, dry with normal turgor. Normal color with no rashes, no lesions, and no evidence of cellulitis. MS/ Extremity: Pulses equal, no cyanosis. Neurovascular intact. Full, normal range of motion. Neuro: Awake and alert, GCS 15, oriented to person, place, time, and situation. Cranial nerves II-XII grossly intact. Motor strength 5/5 in all extremities. Sensory grossly intact. Cerebellar exam normal. Normal gait. 13:23 Back: pain, that is moderate, ROM is painful, with all movement, normal spinal alignment noted, CVA tenderness, is absent, Vital Signs: 09:58 BP 127 / 85; Pulse 83; Resp 17; Temp 98.6; Pulse Ox 100% ; Weight 76.2 kg; Height 5 ft. ap3 6 in. ; Pain 9/10; 13:27 BP 113 / 87; Pulse 80; Resp 16; Pulse Ox 100% on R/A; mb9 09:58 Body Mass Index 27.12 (76.20 kg, 167.64 cm) ap3 09:58 Pain Scale: Adult ap3 MDM: 09:38 Patient medically screened. [facility] 13:26 Differential diagnosis: arthritis, strain, fracture, sciatica, contusion, Herniated shanna disc UTI. Data reviewed: vital signs, nurses notes, lab test result(s), radiologic studies, CT scan. Consideration of Admission/Observation Escalation of care including admission/observation considered. I considered the following discharge prescriptions or medication management in the emergency department Medications were administered in the Emergency Department. See MAR. Independent interpretation of the following test(s) in the Emergency Department CT Scan: My interpretation is ct lumbar. Historians other than the Patient: pt well informed. Care significantly affected by the following chronic conditions: Hypertension, anxiety,bipolar, gerd. Counseling: I had a detailed discussion with the patient and/or guardian regarding the historical points, exam findings, and any diagnostic results supporting the discharge/admit diagnosis, lab results, radiology results, the need for outpatient follow up, for definitive care, a family practitioner, a neurologist. 05/20 10:23 Order name: CBC with Diff; Complete Time: 13:00 [facility] 05/20 10:23 Order name: Comprehensive Metabolic Panel; Complete Time: 13:00 [facility] 05/20 13:00 Order name: CT Lumbar Spine Wo Con [facility] 05/20 11:54 Order name: IV Saline Lock; Complete Time: 11:54 mb9 Administered Medications: 11:48 Drug: NS 0.9% IV 1000 ml IV at 1 bolus Per protocol; 1000 mL bolus Route: IV; Rate: 1 mb9 bolus; Site: right antecubital; 12:50 Follow up: Response: No adverse reaction; IV Status: Completed infusion mb9 11:49 Drug: Ondansetron IVP 4 mg IVP once; over 2 minutes Route: IVP; Site: right antecubital;mb9 12:50 Follow up: Response: No adverse reaction mb9 11:50 Drug: Ketorolac IVP 30 mg IVP once Route: IVP; Site: right antecubital; mb9 12:50 Follow up: Response: No adverse reaction mb9 11:54 Drug: Decadron - Dexamethasone IVP 10 mg IVP once Route: IVP; Site: right antecubital; mb9 12:50 Follow up: Response: No adverse reaction mb9 11:54 Not Given (Patient Refused): fentanyl (pf)50 mcg IVP once mb9 11:54 Drug: Diazepam PO 5 mg PO once Route: PO; mb9 12:50 Follow up: Response: No adverse reaction mb9 Disposition Summary: 05/20/24 14:05 Discharge Ordered Notes: Location: Home shanna Problem: new shanna Symptoms: have improved shanna Condition: Stable shanna Diagnosis - Low back pain shanna - Sciatica, unspecified side shanna - Spondylolysis, lumbar region shanna Followup: shanna - With: Private Physician - When: 1 - 2 days - Reason: Recheck today's complaints, Continuance of care, Re-evaluation by your physician Followup: shanna - With: Juventino Vidal MD - When: 2 - 3 days - Reason: Recheck today's complaints, Re-evaluation by your physician Discharge Instructions: - Discharge Summary Sheet shanna - Acute Back Pain, Adult shanna - Musculoskeletal Pain shanna - Sciatica shanna - Chronic Back Pain, [id number] shanna - Spondylolysis shanna Forms: - Medication Reconciliation Form shanna - Antibiotic Education shanna - Prescription Opioid Use shanna - Patient Portal Instructions [facility] - Leadership Thank You Letter [facility] - Work release form ap3 Prescriptions: - acetaminophen-codeine 300-30 mg Oral tablet - take 2 tablet ORAL route every 6 hours; 20 tablet; Refills: 0, Product shanna Selection Permitted - dexamethasone 4 mg Oral tablet - take 1 tablet ORAL route daily; 5 tablet; Refills: 0, Product Selection shanna Permitted - Diclofenac Sodium 75 mg Oral tablet, delayed release (enteric coated) - take 1 tablet ORAL route 2 times per day; 20 tablet; Refills: 0, Product shanna Selection Permitted - Cyclobenzaprine 5 mg Oral Tablet - take 1 tablet ORAL route 3 times per day As needed; 15 tablet; Refills: 0, shanna Product Selection Permitted Signatures: [facility]patcher [facility] Juvenal, Adarsh, MD MD shanna Prokisch, Kalyn, RN RN ap3 Jackie Marie RN RN mb9
[2024-05-20 16:22] VITALS: O2SAT 100
[2024-05-20 16:23] VITALS: BP 127/85; TEMP 98.6
== END 2024-05-20 14:13 | disposition home or self-care (01) ==
LOC: ER 09:35
DX: M54.30 Sciatica, unspecified side (principal); M43.06 Spondylolysis, lumbar region; F17.210 Nicotine dependence, cigarettes, uncomplicated
CPT/HCPCS: 96361; 85025; 36415; 80053; 72131; 96375; 96374; 99284; J1100; J2405; J7030

== ENCOUNTER 2024-07-20 17:31 | Emergency (ER) | payer OTHER, SELFPAY ==
--- OUTSIDE RECORDS SUMMARY | 2024-07-20 17:35 | XMS REPORT | Continuity of Care Document ---
Author Name Unknown Address [address] [facility] [address] [place] [address] [facility] thconnect Address [address] [facility] [address] [place] [address] Care Team Providers Care Gis Scientist Name Role Phone Shirlene Clarke Primary Care Physician Allergies, Adverse Reactions, Alerts Allergy Name Allergy Type Status Severity Reaction(s) Onset Date Inactive Date Treating Clinician Comments Source none (Not Checked) Propensi ty to adverse reaction to drug Active 03-18 00:00: 00 Delroy Umana Medications Ordered Medication Name Filled Medication Name Start Date Stop Date Current Medication? Ordering Clinician Indication Dosage Frequency Signature (SIG) Comments Components Source [facility] a 150 mg/mL intramuscul ar syringe 2023-08- 00:00: 00 Yes 1mg/mL Delroy Umana hydroxyzine HCl 25 mg tablet 2023-08 0- 00:00: 00 Yes 1mg Delroy Umana buspirone 7.5 mg tablet 2023-08 00:00: 00 Yes mg Delroy Umana mirtazapine 45 mg tablet 2023-08 0 00:00: 00 Yes 1mg Delroy Umana losartan 100 mg tablet 2023-08 0- 00:00: 00 Yes 1mg Delroy Umana lamotrigine 100 mg tablet 2023-08 00:00: 00 Yes 1mg Delroy Umana hydroxyzine HCl 25 mg tablet 2023-08 0 00:00: 00 Yes 1mg Delroy Umana hydroxyzine HCl 25 mg tablet 05-13 00:00: 00 Yes 12mg Delroy Umana losartan 100 mg tablet 2024-0 8-02 00:00: 00 Yes 1mg Delroy Umana hydroxyzine HCl 25 mg tablet 0 8-02 00:00: 00 Yes 12mg Delroy Umana buspirone 7.5 mg tablet 0 8-02 00:00: 00 Yes mg Delroy Umana mirtazapine 45 mg tablet 0 8-02 00:00: 00 Yes 1mg Delroy Umana losartan 100 mg tablet 7-10 00:00: 00 Yes 1mg Delroy Umana [facility]ist a 150 mg/mL intramuscul ar syringe 6-07 00:00: 00 Yes 1mg/mL Delroy Umana buspirone 7.5 mg tablet 5-24 00:00: 00 Yes mg Delroy Umana mirtazapine 45 mg tablet 0 5-24 00:00: 00 Yes 1mg Delroy Umana lamotrigine 100 mg tablet 0 5-24 00:00: 00 Yes 1mg Delroy Umana hydroxyzine HCl 25 mg tablet 5-21 00:00: 00 Yes 12mg Delroy Umana buspirone 5 mg tablet 0 3-29 00:00: 00 Yes mg Delroy Umana hydroxyzine HCl 25 mg tablet 3-29 00:00: 00 Yes 12mg Delroy Umana TAKE ONE (1) TABLET(S) BY MOUTH DAILY. -14 00:00: 00 Yes 100 Delroy Umana TAKE 1 TABLET AT BEDTIME. -14 00:00: 00 Yes 45 Delroy Umana TAKE ONE (1) TABLET(S) BY MOUTH ONCE A DAY NEEDED. -14 00:00: 00 Yes Delroy Umana TAKE ONE (1) TABLET(S) BY MOUTH DAILY. -14 00:00: 00 Yes Delroy Umana DISSOLVE ONE (1) TABLET(S) BY MOUTH EVERY 2 HOURS NEEDED FOR HEADACHE. MAX DAILY DOSE IS 3 TABLETS EVERY 24 HOURS. -19 00:00: 00 Yes Delroy Umana TAKE ONE (1) TABLET(S) BY MOUTH EVERY SIX HOURS NEEDED FOR PAIN. -19 00:00: 00 Yes Delroy Umana TAKE ONE [...] Delroy Umana TAKE 1 TABLET DAILY. 2022-08 00:00: 00 12-14 00:00 :00 No 15 Delroy Umana TAKE 1 TABLET AT BEDTIME. 2022-08 00:00: 00 12-14 00:00 :00 No 45 Delroy Umana TAKE ONE (1) TABLET(S) BY MOUTH DAILY. 2022-08 00:00: 00 Yes Delroy Umana TAKE ONE (1) TABLET(S) BY MOUTH EVERY MORNING AND EVERY AFTERNOON. TAKE TWO (2) TABLETS BY MOUTH AT NIGHT. 2022-08 012 00:00: 00 Yes Delroy Umana TAKE ONE (1) CAPSULE(S) BY MOUTH EVERY SIX HOURS FOR 10 DAYS. 05-05 00:00: 00 12-14 00:00 :00 No Delroy Umana TAKE ONE (1) TABLET(S) BY MOUTH EVERY EIGHT HOURS NEEDED FOR PAIN. 05-05 00:00: 00 12-14 00:00 :00 No Delroy Umana TAKE ONE (1) TABLET(S) BY MOUTH EVERY EIGHT HOURS NEEDED FOR MUSCLE SPASMS OR PAIN. 04-27 00:00: 00 12-14 00:00 :00 No Delroy Umana TAKE TWO (2) TABLET(S) BY MOUTH EVERY SIX HOURS. 04-27 00:00: 00 12-14 00:00 :00 No Delroy Umana TAKE ONE (1) TABLET(S) BY MOUTH EVERY EIGHT HOURS FOR 10 DAYS. 04-27 00:00: 00 12-14 00:00 :00 No Delroy Umana TAKE 1 TABLET DAILY. 8- 00:00: 00 12-14 00:00 :00 No 100 Delroy Umana TAKE ONE (1) TABLET(S) BY MOUTH EVERY MORNING AND EVERY AFTERNOON. TAKE TWO (2) TABLETS BY MOUTH AT NIGHT. 8- 00:00: 00 12-14 00:00 :00 No 5 Delroy Umana TAKE 1 TABLET DAILY. 8-07 00:00: 00 12-14 00:00 :00 No 15 Delroymurphy Umana TAKE 1 TABLET AT BEDTIME. 8-07 00:00: 00 12-14 00:00 :00 No 45 Delroy Bharat Umana TAKE 1 TABLET DAILY. 7-07 00:00: 00 12-14 00:00 :00 No 15 Delroy Bharat Umana TAKE ONE (1) TABLET(S) BY MOUTH DAILY AT BEDTIME. 7-07 00:00: 00 12-14 00:00 :00 No Delroy Bharat Umana TAKE 1 TABLET DAILY. 6-07 00:00: 00 12-14 00:00 :00 No 100 Delroymurphy Umana TAKE ONE (1) TABLET(S) BY MOUTH AT BEDTIME. 0 6-07 00:00: 00 12-14 00:00 :00 No Delroy Umana TAKE ONE (1) TABLET(S) BY MOUTH EVERY MORNING AND EVERY AFTERNOON. TAKE TWO (2) TABLETS BY MOUTH AT NIGHT. 6-05 00:00: 00 12-14 00:00 :00 No 5 Delroymurphy Umana TAKE 1 TABLET DAILY. 5 00:00: 00 12-14 00:00 :00 No 15 Delroy Bharat Umana TAKE ONE (1) TABLET(S) BY MOUTH DAILY. 5 00:00: 00 12-14 00:00 :00 No Delroy F Dong TAKE ONE (1) TABLET NEEDED TWICE DAILY. 12-15 00:00: 00 12-14 00:00 :00 No Delroy Bharat Umana TAKE ONE (1) TABLET(S) BY MOUTH AT BEDTIME. 12-15 00:00: 00 12-14 00:00 :00 No Delroy Bharat Umana TAKE ONE (1) TABLET(S) BY MOUTH DAILY. 5 00:00: 00 12-14 00:00 :00 No Delroy Bharat Umana TAKE ONE (1) TABLET(S) BY MOUTH EVERY TWELVE HOURS NEEDED FOR PAIN. 12-12 00:00: 00 12-14 00:00 :00 No Delroy Bharat Umana TAKE ONE (1) CAPSULE(S) BY MOUTH DAILY. 12-12 00:00: 00 12-14 00:00 :00 No Delroy Bharat Umana TAKE 1 TABLET DAILY. 0 - 00:00: 00 12-14 00:00 :00 No 15 Delroy Bharat Umana TAKE ONE TABLET NEEDED TWICE DAILY. 0 - 00:00: 00 12-14 00:00 :00 No 5 Delroy Bharat Umana TAKE 1 TABLET AT BEDTIME. 0 - 00:00: 00 12-14 00:00 :00 No 45 Delroy Bharat Umana TAKE 1 TABLET DAILY. 0 12-01 00:00: 00 12-14 00:00 :00 No Dhruv Umana TAKE ONE (1) TABLET(S) BY MOUTH DAILY. 0 2-13 00:00: 00 12-14 00:00 :00 No Delroy F Dong TAKE ONE (1) TABLET(S) BY MOUTH ONCE A DAY BEFORE BEDTIME. 2-13 00:00: 00 12-14 00:00 :00 No Delroy F Dong TAKE ONE (1) TABLET(S) BY MOUTH DAILY AT BEDTIME. 2021-08 1-30 00:00: 00 12-14 00:00 :00 No Delroy F Dong TAKE ONE (1) TABLET(S) BY MOUTH ONCE A DAY BEFORE BEDTIME. 2021-08 0-14 00:00: 00 12-14 00:00 :00 No Delroy F Dong TAKE ONE (1) TABLET(S) BY MOUTH DAILY. 7-06 00:00: 00 12-14 00:00 :00 Cassie Delroy Bharat Umana TAKE ONE (1) TABLET(S) BY MOUTH EVERY MORNING. 7-06 00:00: 00 12-14 00:00 :00 No Delroy F Dong TAKE ONE (1) TABLET(S) BY MOUTH AT BEDTIME. 7-06 00:00: 00 12-14 00:00 :00 No Delroy F Dong TAKE ONE (1) TABLET(S) BY MOUTH AT BEDTIME. 6-12 00:00: 00 12-14 00:00 :00 Cassie Delroy Bharat Umana TAKE 1 TABLET BY MOUTH ONCE DAILY IN THE MORNING 0 6-03 00:00: 00 12-14 00:00 :00 No Delroy F Dong TAKE TWO (2) TABLET(S) BY MOUTH AT BEDTIME. 0 6-03 00:00: 00 12-14 00:00 :00 No Delroy F Dong TAKE ONE (1) TABLET(S) BY MOUTH AT BEDTIME NEEDED. 5-19 00:00: 00 12-14 00:00 :00 Cassie Delroy F Dong TAKE ONE (1) TABLET(S) BY MOUTH TWICE A DAY WITH MEALS. 01-02 00:00: 00 12-14 00:00 :00 No Delroy F Dong Vital Signs Vital Name Observation Time Observation Value Comments Aryan kenney BP Systolic 2024-06-25 11:18:00 124 mm[Hg] Step hen F Dong BP Diastolic 2024-06-25 11:18:00 83 mm[Hg] Brenton phen F Dong Weight Measured 2024-06-25 11:18:00 168.00 pounds Delroy F Dong Height Measured 2024-06-25 11:18:00 63.00 inches Delroy F Dong Body Temperature 2024-06-25 11:18:00 98.20 degrees Delroy F Dong Heart Rate 2024-06-25 11:18:00 81.00 /min Felipa en F Dong Respiratory Rate 2024-06-25 11:18:00 19.00 /min Delroy F Dong BP Systolic 2024 10:17:00 136 mm[Hg] Step hen F Dong BP Diastolic 2024 10:17:00 94 mm[Hg] Brenton phen F Dong Weight Measured 2024 10:17:00 164.60 pounds Delroy F Dong Height Measured 2024 10:17:00 63.00 inches Delroy F Dong Body Temperature 2024 10:17:00 83.00 degrees Delroy F Dong Heart Rate 2024 10:17:00 76.00 /min Felipa en F Dong Respiratory Rate 2024 10:17:00 18.00 /min Delroy F Dong BP Systolic 2024-03-18 13:47:00 Step hen F Dong BP Diastolic 2024-03-18 13:47:00 Brenton phen F Dong Weight Measured 2024-03-18 13:47:00 Delroy F Dong Height Measured 2024-03-18 13:47:00 Delroy F Dong Body Temperature 2024-03-18 13:47:00 Delroy F Dong Heart Rate 2024-03-18 13:47:00 Felipa en F Dong Respiratory Rate 2024-03-18 13:47:00 Delroy F Dong BP Systolic 2024-01-22 09:49:00 133 mm[Hg] Step hen F Dong BP Diastolic 2024-01-22 09:49:00 84 mm[Hg] Brenton phen F Dong Weight Measured 2024-01-22 09:49:00 162.40 pounds Delroy F Dong Height Measured 2024-01-22 09:49:00 63.00 inches Delroy F Dong Body Temperature 2024-01-22 09:49:00 97.90 degrees Delroy F Dong Heart Rate 2024-01-22 09:49:00 80.00 /min Felipa [...] Respiratory Rate 2023-07-18 12:30:00 18.00 /min Delroy Umana BP Systolic 2023-07-17 13:20:00 176 mm[Hg] uJan Umana BP Diastolic 2023-07-17 13:20:00 60 mm[Hg] Brenton Umana Weight Measured 2023-07-17 13:20:00 Delroy Umana Height Measured 2023-07-17 13:20:00 Delroy Umana Body Temperature 2023-07-17 13:20:00 Delroy Umana Heart Rate 2023-07-17 13:20:00 88.00 /min Felipa en Bharat Umana Respiratory Rate 2023-07-17 13:20:00 Delroy Umana Encounters Start Date/Time End Date/Time Encounter Type Admission Type Attending [facility] Care Department Encounter ID Source 2024-06-25 11:02:35 2024-06-25 11:02:35 Outpatient SFA SFA [id number] Delroy Umana 2024-06-25 00:00:00 2024-06-25 00:00:00 Outpatient Visit SFA [id number] Delroy Umana 2024-06-11 09:21:08 2024-06-11 09:21:08 Outpatient SFA SFA [id number] Delroy Umana 2024-06-07 11:21:46 2024-06-07 11:21:46 Outpatient SFA [id number] [id number] Delroy Umana 2024-06-07 00:00:00 2024-06-07 00:00:00 Outpatient Visit SFA [id number] Delroy Umana 2024 10:11:12 2024 10:11:12 Outpatient SFA SFA [id number] Delroy Umana 2024-03-18 00:00:00 2024-03-18 00:00:00 Outpatient Visit SFA [id number] Delroy Umana 2024-01-22 09:41:09 2024-01-22 09:41:09 Outpatient SFA SFA [id number] Delroy Umana 2024-01-22 00:00:00 2024-01-22 00:00:00 Outpatient Visit SFA [id number] Delroy Umana 2024-01-08 13:25:34 2024-01-08 13:25:34 Outpatient SFA SFA [id number] Delroy Umana 2024-01-08 00:00:00 2024-01-08 00:00:00 Outpatient Visit SFA [id number] Delroy Umana 2024-01-05 15:06:23 2024-01-05 15:06:23 Outpatient SFA SFA [id number] Delroy Umana 2024-01-05 00:00:00 2024-01-05 00:00:00 Outpatient Visit SFA [id number] Delroy Umana 2023-12-03 11:41:47 2023-12-03 11:41:47 Outpatient SFA SFA [id number] Delroy Umana 2023-12-03 00:00:00 2023-12-03 00:00:00 Outpatient Visit SFA [id number] Delroy Umana 2023-11-13 00:00:00 2023-11-13 00:00:00 Outpatient Visit SFA [id number] Delroy Umana 2023-07-18 12:16:07 2023-07-18 12:16:07 Outpatient SFA SFA [id number] Delroy Umana 2023-03-23 13:11:22 2023-03-23 13:11:22 Outpatient [facility] [id number] Delroy Umana 2023-02-20 15:44:58 2023-02-20 15:44:58 Outpatient [facility] [id number] Delroy Umana Results Test Description Test Time Test Comments Results Result Co mments Source COMPREHENSIVE METABOLIC [id number] 23:22:10* Test Item Value Reference Range Interpretation Comme nts GLUCOSE (test code = 2216) 88 MG/DL 70-99 BUN (test code = 2207) 13 MG/DL 6-20 CREATININE (test code = 4) 0.70 MG/DL 0.60-1.30 eGFR (2020 CKD-EPI) (test code = 28432) 107 ML/MIN/1.73 >60 CALC BUN/CREAT (test code = 2235) 19 RATIO 6-28 SODIUM (test code = 223) 141 MEQ/L 133-146 POTASSIUM (test code = 2228) 4.5 MEQ/L 3.5-5.4 CHLORIDE (test code = 2215) 109 MEQ/L 95-107 H CARBON DIOXIDE (test code = 2206) 20 MEQ/L 19-31 CALCIUM (test code = 2209) 8.8 MG/DL 8.5-10.5 PROTEIN, TOTAL (test code = 2229) 6.5 G/DL 6.1-8.3 ALBUMIN (test code = 2201) 4.1 G/DL 3.5-5.2 CALC GLOBULIN (test code = 2240) 2.4 G/DL 1.9-3.7 CALC A/G RATIO (test code = 4) 1.7 RATIO 1.0-2.6 BILIRUBIN, TOTAL (test code = 7) 0.2 MG/DL <=1.2 ALKALINE PHOSPHATASE (test code = 2204) 100 U/L 40-120 AST (test code = 2218) 26 U/L 9-40 ALT (test code = 2219) 31 U/L 5-40 HEMOGLOBIN [id number] 03:53:03* Test Item Value Reference Range Interpretation Comme nts HEMOGLOBIN A1c (test code = 40883) 5.1 % 4.2-5.6 UNLESS OTHERWISE INDICATED, ALL TESTING PERFORMED AT [facility] [address] [place] [id number] REFERENCE DATA EXPERT: HENRY LOVE M.D. CLIA NUMBER [id number] [facility] [place]. [id number] LIPID [id number] 00:00:00* Test Item Value Reference Range Interpretation Comme nts CHOLESTEROL (test code = 2210) 150 MG/DL TRIGLYCERIDES (test code = 2232) 66 MG/DL HDL CHOLESTEROL (test code = 2220) 38 MG/DL CALC LDL CHOL (test code = 2237) 97 MG/DL RISK RATIO LDL/HDL (test cod e = 2238) 2.55 RATIO Delroy UmanaCOMPREHENSIVE METABOLIC [id number] 00:00:00* Test Item Value Reference Range Interpretation Comme nts GLUCOSE (test code = 2217) 88 MG/DL BUN (test code = 2208) 13 MG/DL CREATININE (test code = 2214) 0.70 MG/DL eGFR (2020 CKD-EPI) (test code = 05402) 107 ML/MIN/1.73 CALC BUN/CREAT (test code = 2235) 19 RATIO SODIUM (test code = 2231) 141 MEQ/L POTASSIUM (test code = 2228) 4.5 MEQ/L CHLORIDE (test code = 2215) 109 MEQ/L CARBON DIOXIDE (test code = 2206) 20 MEQ/L CALCIUM (test code = 2209) 8.8 MG/DL PROTEIN, TOTAL (test code = 2229) 6.5 G/DL ALBUMIN (test code = 2201) 4.1 G/DL CALC GLOBULIN (test code = 2240) 2.4 G/DL CALC A/G RATIO (test code = 2234) 1.7 RATIO BILIRUBIN, TOTAL (test code = 2207) 0.2 MG/DL ALKALINE PHOSPHATASE (test code = 2204) 100 U/L AST (test code = 2218) 26 U/L ALT (test code = 2219) 31 U/L Delroy UmanaHEMOGLOBIN [id number] 00:00:00* Test Item Value Reference Range Interpretation Comme nts HEMOGLOBIN A1c (test code = 17072) 5.1 % Delroy UmanaLIPID [id number] 00:00:00* Test Item Value Reference Range Interpretation Comme nts CHOLESTEROL (test code = 2210) 150 MG/DL TRIGLYCERIDES (test code = 2232) 66 MG/DL HDL CHOLESTEROL (test code = 2220) 38 MG/DL CALC LDL CHOL (test code = 2237) 97 MG/DL RISK RATIO LDL/HDL (test cod e = 2238) 2.55 RATIO Delroy UmanaCOMPREHENSIVE METABOLIC [id number] 00:00:00* Test Item Value Reference Range Interpretation Comme nts GLUCOSE (test code = 2217) 88 MG/DL BUN (test code = 2208) 13 MG/DL CREATININE (test code = 2214) 0.70 MG/DL eGFR (2020 CKD-EPI) (test code = 34178) 107 ML/MIN/1.73 CALC BUN/CREAT (test code = 2235) 19 RATIO SODIUM (test code = 2231) 141 MEQ/L POTASSIUM (test code = 2228) 4.5 MEQ/L CHLORIDE (test code = 2215) 109 MEQ/L CARBON DIOXIDE (test code = 2206) 20 MEQ/L CALCIUM (test code = 2209) 8.8 MG/DL PROTEIN, TOTAL (test code = 2229) 6.5 G/DL ALBUMIN (test code = 2201) 4.1 G/DL CALC GLOBULIN (test code = 2240) 2.4 G/DL CALC A/G RATIO (test code = 2234) 1.7 RATIO BILIRUBIN, TOTAL (test code = 2207) 0.2 MG/DL ALKALINE PHOSPHATASE (test code = 2204) 100 U/L AST (test code = 2218) 26 U/L ALT (test code = 2219) 31 U/L Delroy UmanaHEMOGLOBIN [id number] 00:00:00* Test Item Value Reference Range Interpretation Comme anand HEMOGLOBIN A1c (test code = 89256) 5.1 % Delroy UmanaC W/AUTO DIFF WITH [id number] 02:16:53* Test Item Value Reference Range Interpretation Comme nts WBC (test code = 1001) 6.9 K/UL 3.5-11.0 RBC (test code = 1002) 4.06 M/UL 3.80-5.40 HEMOGLOBIN (test code = 1003) 12.9 G/DL 11.5-15.5 HEMATOCRIT (test code = 1004) 37.9 % 34.0-45.0 MCV (test code = 1005) 93.3 fL 80.0-99.0 MCH (test code = 1006) 31.8 PG 25.0-33.0 MCHC (test code = 1007) 34.0 G/DL 31.0-36.0 RDW (test code = 1038) 11.7 % 11.5-15.0 NEUTROPHILS (test code = 1008) 59.1 % LYMPHOCYTES (test code = 1010) 27.3 % MONOCYTES (test code = 1011) 10.6 % EOSINOPHILS (test code = 1012) 2.2 % BASOPHILS (test code = 1013) 0.7 % IMMATURE GRANULOCYTES (test code = 1036) 0.1 % NUCLEATED RBCS (test code = 1065) 0.0 /100 WBC'S See_Comment [Automated message] The system which generated this result transmitted reference range: 0.0. The reference range was not used to interpret this result as normal/abnormal. PLATELET COUNT (test code = 1015) 270 K/UL 130-400 ABSOLUTE NEUTROPHILS (test code = 1066) 4.07 K/UL 1.50-7.50 ABSOLUTE LYMPHOCYTES (test code = 1067) 1.88 K/UL 1.00-4.00 ABSOLUTE MONOCYTES (test code = 1068) 0.73 K/UL 0.20-1.00 ABSOLUTE EOSINOPHILS (test code = 1040) 0.15 K/UL 0.00-0.50 ABSOLUTE BASOPHILS (test code = 1069) 0.05 K/UL 0.00-0.20 ABS IMMATURE GRANULOCYTES (test code = 1020) 0.01 K/UL 0.00-0.10 ABS NUCLEATED RBCS (test code = 16736) 0.00 K/UL 0.00-0.11 UNLESS OTHER SANCHEZ INDICATED, ALL TESTING PERFORMED AT [facility] [address] [place] [address] REFERENCE DATA EXPERT: HENRY LOVE M.D. CLIA NUMBER [id number] [facility]. [id number] CBC W/AUTO [id number] 00:00:00* Test Item Value Reference Range Interpretation [...] ABS NUCLEATED RBCS (test cod e = 61518) 0.00 K/UL Delroy [facility] W/AUTO [id number] 00:00:00* Test Item Value Reference Range Interpretation [...] ABS NUCLEATED RBCS (test cod e = 58324) 0.00 K/UL Delroy [facility] W/AUTO [id number] 00:00:00* Test Item Value Reference Range Interpretation [...] ABS NUCLEATED RBCS (test cod e = 64059) 0.00 K/UL Delroy [facility] W/AUTO [id number] 00:00:00* Test Item Value Reference Range Interpretation [...] ABS NUCLEATED RBCS (test cod e = 31500) 0.00 K/UL Delroy F [facility] W/AUTO [id number] 00:00:00* Test Item Value Reference Range Interpretation [...] ABS NUCLEATED RBCS (test cod e = 57094) 0.00 K/UL Delroy Nielsen, [id number] 13:56:42SPECIMEN NUMBER: [id number] CULTURE, URINE SPECIMEN NUMBER: [id number] SPECIMEN COMMENT: URINE SOURCE: URINE REPORT STATUS: FINAL ISOLATE NUMBER 1: ORGANISM: 07/20/2023 50-100,000 CFU/ML GRAM NEGATIVE BACILLI IDENTIFICATION: 07/22/2023 ESCHERICHIA COLI E. COLI AMOXICILLIN/CA SENSITIVE <=8/4AMPICILLIN SENSITIVE <=8CEFAZOLIN SENSITIVE 4CEFTRIAXONE SENSITIVE <=1CIPROFLOXACIN RESISTANT >2LEVOFLOXACIN RESISTANT >4NITROFURANTOIN SENSITIVE <=32PIP/TAZOBAC SENSITIVE <=16TETRACYCLINE RESISTANT >8TOBRAMYCIN SENSITIVE <=4TRIMETH/SULFA SENSITIVE <=2/38 NOTE: NUMBERS DISPLAYED REPRESENT MINIMUM INHIBITORY CONCENTRATION (JAYDE) WHICH IS EXPRESSED IN MCG/ML.CULTURE, [id number] 00:00:00* Test Item Value Reference Range Interpretation Comme nts CULTURE, URINE (test code = 66411) SPECIMEN NUMBER: [id number] Delroy Nielsen, [id number] 00:00:00* Test Item Value Reference Range Interpretation Comme nts CULTURE, URINE (test code = 33336) SPECIMEN NUMBER: [id number] Delroy Nielsen, [id number] 00:00:00* Test Item Value Reference Range Interpretation Comme nts CULTURE, URINE (test code = 67361) SPECIMEN NUMBER: [id number] Delroy Nielsen, [id number] 00:00:00* Test Item Value Reference Range Interpretation Comme nts CULTURE, URINE (test code = 93258) SPECIMEN NUMBER: [id number] Delroy Nielsen, [id number] 00:00:00* Test Item Value Reference Range Interpretation Comme nts CULTURE, URINE (test code = 23134) SPECIMEN NUMBER: [id number] Delroy Nielsen, [id number] 00:00:00* Test Item Value Reference Range Interpretation Comme nts CULTURE, URINE (test code = 67034) SPECIMEN NUMBER: [id number] Delroy Nielsen, [id number] 00:00:00* Test Item Value Reference Range Interpretation Comme nts CULTURE, URINE (test code = 11051) SPECIMEN NUMBER: [id number] Delroy Nielsen, [id number] 00:00:00* Test Item Value Reference Range Interpretation Comme nts CULTURE, URINE (test code = 38376) SPECIMEN NUMBER: [id number] Delroy UmanaCOMPREHENSIVE METABOLIC [id number] 01:01:45* Test Item Value Reference Range Interpretation Comme nts GLUCOSE (test code = 2217) 87 MG/DL 70-99 BUN (test code = 2208) 13 MG/DL 6-20 CREATININE (test code = 2214) 0.77 MG/DL 0.60-1.30 eGFR (2020 CKD-EPI) (test co de = 95446) 96 ML/MIN/1.73 >60 CALC BUN/CREAT (test code [...] RATIO 1.0-2.6 BILIRUBIN, TOTAL (test code = 2207) 0.3 MG/DL <=1.2 ALKALINE PHOSPHATASE (test code = 2204) 86 U/L 40-118 AST (test code = 2218) 14 U/L 9-40 ALT (test code = 2219) 10 U/L 5-40 LIPID [id number] 01:01:45* Test Item Value Reference Range Interpretation Comme nts CHOLESTEROL (test code = 2210) 133 MG/DL <200 TRIGLYCERIDES (test code = 2232) 76 MG/DL <150 HDL CHOLESTEROL (test code = 2220) 42 MG/DL >39 CALC LDL CHOL (test code = 2237) 75 MG/DL <100 NOTE: CALCULATED LDL IS BASED ON LINDA-EMLVIN METHOD WHICHINCLUDES ADJUSTABLE TRIGLYCERIDE:VLDL CHOLESTEROL RATIO.THIS FACTOR VARIES BY MEASURED TRIGLYCERIDE AND NON-HDLCHOLESTEROL CONCENTRATIONS WITH INCREASED CALCULATED LDL SEENIN HIGHER TRIGLYCERIDE OR LOWER NON-HDL SPECIMENS. FOR MOREINFORMATION, SEE CLIENT ANNOUNCEMENT AT [email or web address] [employer] /CalcLDL-C RISK RATIO LDL/HDL (test code = 2238) 1.79 RATIO <3.22 UNLESS OTHERW ISE INDICATED, ALL TESTING PERFORMED AT [facility] [address] [place] [id number] REFERENCE DATA EXPERT: HENRY LOVE M.D. CLIA NUMBER [id number] [facility]. [id number] COMPREHENSIVE METABOLIC [id number] 00:00:00* Test Item Value Reference Range Interpretation Comme nts GLUCOSE (test code = 7) 87 MG/DL BUN (test code = 2207) 13 MG/DL CREATININE (test code = 2214) 0.77 MG/DL eGFR (2020 CKD-EPI) (test co de = 30544) 96 ML/MIN/1.73 CALC BUN/CREAT (test code = 2235) 17 RATIO SODIUM (test code = 223) 141 MEQ/L POTASSIUM (test code = 2228) [...] code = 2219) 10 U/L Delroy UmanaLIPID [id number] 00:00:00* Test Item Value Reference Range Interpretation Comme nts CHOLESTEROL (test code = 2210) 133 MG/DL TRIGLYCERIDES (test code = 2232) 76 MG/DL HDL CHOLESTEROL (test code = 2220) 42 MG/DL CALC LDL CHOL (test code = 2237) 75 MG/DL RISK RATIO LDL/HDL (test cod e = 2238) 1.79 RATIO Delroy UmanaCOMPREHENSIVE METABOLIC [id number] 00:00:00* Test Item Value Reference Range Interpretation Comme nts GLUCOSE (test code = 2217) 87 MG/DL BUN (test code = 2208) 13 MG/DL CREATININE (test code = 2214) 0.77 MG/DL eGFR (2020 CKD-EPI) (test co de = 04614) 96 ML/MIN/1.73 CALC BUN/CREAT (test code = [...] code = 2219) 10 U/L Delroy UmanaLIPID [id number] 00:00:00* Test Item Value Reference Range Interpretation Comme nts CHOLESTEROL (test code = 2210) 133 MG/DL TRIGLYCERIDES (test code = 2232) 76 MG/DL HDL CHOLESTEROL (test code = 2220) 42 MG/DL CALC LDL CHOL (test code = 2237) 75 MG/DL RISK RATIO LDL/HDL (test cod e = 2238) 1.79 RATIO Delroy UmanaCOMPREHENSIVE METABOLIC [id number] 00:00:00* Test Item Value Reference Range Interpretation Comme nts GLUCOSE (test code = 2217) 87 MG/DL BUN (test code = 2208) 13 MG/DL CREATININE (test code = 2214) 0.77 MG/DL eGFR (2020 CKD-EPI) (test co de = 59901) 96 ML/MIN/1.73 CALC BUN/CREAT (test code = [...] code = 2219) 10 U/L Delroy UmanaLIPID [id number] 00:00:00* Test Item Value Reference Range Interpretation Comme nts CHOLESTEROL (test code = 2210) 133 MG/DL TRIGLYCERIDES (test code = 2232) 76 MG/DL HDL CHOLESTEROL (test code = 2220) 42 MG/DL CALC LDL CHOL (test code = 2237) 75 MG/DL RISK RATIO LDL/HDL (test cod e = 2238) 1.79 RATIO Delroy Nicholson AustinCOMPREHENSIVE METABOLIC [id number] 00:00:00* Test Item Value Reference Range Interpretation Comme nts GLUCOSE (test code = 2217) 87 MG/DL BUN (test code = 2208) 13 MG/DL CREATININE (test code = 2214) 0.77 MG/DL eGFR (2020 CKD-EPI) (test co de = 25384) 96 ML/MIN/1.73 CALC BUN/CREAT (test code = [...] = 2219) 10 U/L Delroy Nicholson AustinLIPID [id number] 00:00:00* Test Item Value Reference Range Interpretation Comme nts CHOLESTEROL (test code = 2210) 133 MG/DL TRIGLYCERIDES (test code = 2232) 76 MG/DL HDL CHOLESTEROL (test code = 2220) 42 MG/DL CALC LDL CHOL (test code = 2237) 75 MG/DL RISK RATIO LDL/HDL (test cod e = 2238) 1.79 RATIO Delroy Nicholson AustinCOMPREHENSIVE METABOLIC [id number] 00:00:00* Test Item Value Reference Range Interpretation Comme nts GLUCOSE (test code = 2217) 87 MG/DL BUN (test code = 2208) 13 MG/DL CREATININE (test code = 2214) 0.77 MG/DL eGFR (2020 CKD-EPI) (test co de = 35240) 96 ML/MIN/1.73 CALC BUN/CREAT (test code = [...] code = 2219) 10 U/L Delroy Nicholson HendersonLIPID [id number] 00:00:00* Test Item Value Reference Range Interpretation Comme nts CHOLESTEROL (test code = 2210) 133 MG/DL TRIGLYCERIDES (test code = 2232) 76 MG/DL HDL CHOLESTEROL (test code = 2220) 42 MG/DL CALC LDL CHOL (test code = 2237) 75 MG/DL RISK RATIO LDL/HDL (test cod e = 2238) 1.79 RATIO Delroy UmanaCOMPREHENSIVE METABOLIC [id number] 00:00:00* Test Item Value Reference Range Interpretation Comme nts GLUCOSE (test code = 2217) 87 MG/DL BUN (test code = 2208) 13 MG/DL CREATININE (test code = 2214) 0.77 MG/DL eGFR (2020 CKD-EPI) (test co de = 58782) 96 ML/MIN/1.73 CALC BUN/CREAT (test code = [...] = 2219) 10 U/L Delroy Nicholson AustinLIPID [id number] 00:00:00* Test Item Value Reference Range Interpretation Comme nts CHOLESTEROL (test code = 2210) 133 MG/DL TRIGLYCERIDES (test code = 2232) 76 MG/DL HDL CHOLESTEROL (test code = 2220) 42 MG/DL CALC LDL CHOL (test code = 2237) 75 MG/DL RISK RATIO LDL/HDL (test cod e = 2238) 1.79 RATIO Delroy UmanaCOMPREHENSIVE METABOLIC [id number] 00:00:00* Test Item Value Reference Range Interpretation Comme nts GLUCOSE (test code = 2217) 87 MG/DL BUN (test code = 2208) 13 MG/DL CREATININE (test code = 2214) 0.77 MG/DL eGFR (2020 CKD-EPI) (test co de = 45227) 96 ML/MIN/1.73 CALC BUN/CREAT (test code = [...] = 2219) 10 U/L Delroy Nicholson AustinLIPID [id number] 00:00:00* Test Item Value Reference Range Interpretation Comme nts CHOLESTEROL (test code = 2210) 133 MG/DL TRIGLYCERIDES (test code = 2232) 76 MG/DL HDL CHOLESTEROL (test code = 2220) 42 MG/DL CALC LDL CHOL (test code = 2237) 75 MG/DL RISK RATIO LDL/HDL (test cod e = 2238) 1.79 RATIO Delroy Bharat DongCOMPREHENSIVE METABOLIC [id number] 00:00:00* Test Item Value Reference Range Interpretation Comme nts GLUCOSE (test code = 2217) 87 MG/DL BUN (test code = 2208) 13 MG/DL CREATININE (test code = 2214) 0.77 MG/DL eGFR (2020 CKD-EPI) (test co de = 05435) 96 ML/MIN/1.73 CALC BUN/CREAT (test code = [...] (test code = 2219) 10 U/L Delroy Bharat DongLIPID [id number] 00:00:00* Test Item Value Reference Range Interpretation Comme nts CHOLESTEROL (test code = 2210) 133 MG/DL TRIGLYCERIDES (test code = 2232) 76 MG/DL HDL CHOLESTEROL (test code = 2220) 42 MG/DL CALC LDL CHOL (test code = 2237) 75 MG/DL RISK RATIO LDL/HDL (test cod e = 2238) 1.79 RATIO Delroy Umana Notes Date/Time Note Provider Source Delroy [facility]2024-10-22 00:00:00 Delroy [facility]2024-08-02 00:00:00 Delroy [facility]2024-06-07 00:00:00 [facility]2024-05-24 00:00:00 [facility]2024-05-21 00:00:00 [facility]2024-04-18 00:00:00 [facility]2024-03-29 00:00:00 [facility]
[2024-07-20 18:14] LABS: SARS-CoV-2 Antigen CONTROL BLUE LINE VIS/BG OK; SARS-CoV-2 Antigen Rapid Res Negative (Negative)
--- NOTE | 2024-07-20 18:57 | EDPHYS ---
Physician Documentation [facility] Name: Bonnie Rivers Age: 49 yrs Sex: Female : 1975 Arrival Date: 07/20/2024 Time: 17:31 Bed IW1 Private MD: ED Physician Adarsh Sanford HPI: 07/20 17:45 This 49 yrs old Female presents to ER via Ambulatory with complaints of Fever, kb Headache, Cough. 17:45 Pt is a 49 year old female who presents for cough and congestion that started yesterday kb with headache, back pain and subjective fever that started at 0130 this morning. REports post tussive vomiting x1 and diarrhea x2. Pt reports 2 grandchildren just got over the flu and one tested positive for RSV a few days ago. 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 - Infectious Disease History:: Denies. - Social history:: Smoking status: Patient reports the use of cigarette tobacco products, smokes one-half pack cigarettes per day. ROS: 17:45 Constitutional: As per HPI kb Exam: 17:45 Constitutional: This is a well developed, well nourished patient who is awake, alert, kb and in no acute distress. Head/Face: Normocephalic, atraumatic. ENT: Moist Mucous membranes Cardiovascular: Regular rate Respiratory: Respirations even and unlabored. No increased work of breathing. Talking in full sentences Abdomen/GI: Soft, non-tender. No distention Skin: Warm, dry with normal turgor. Normal color. MS/ Extremity: Pulses equal, no cyanosis. Neurovascular intact. Full, normal range of motion. Neuro: Awake and alert, GCS 15, oriented to person, place, time, and situation. Vital Signs: 17:40 BP 135 / 96; Pulse 99; Resp 18; Temp 97.6; Pulse Ox 99% on R/A; Weight 78.47 kg; Height iw 5 ft. 6 in. ; Pain 9/10; 17:40 Body Mass Index 27.92 (78.47 kg, 167.64 cm) iw 17:40 Pain Scale: Adult iw MDM: 17:36 Medical Screening Exam initiated kb 17:47 Data reviewed: vital signs, nurses notes. kb 18:52 Differential diagnosis: flu, covid, rsv, uri. I considered the following discharge kb prescriptions or medication management in the emergency department I discussed and recommended Over The Counter medications, Antibiotics: At this time antibiotics are not recommended, Antivirals: At this time, antivirals are not recommended. Counseling: I had a detailed discussion with the patient and/or guardian regarding the historical points, exam findings, and any diagnostic results supporting the discharge/admit diagnosis, lab results, the need for outpatient follow up, a family practitioner, to return to the emergency department if symptoms worsen or persist or if there are any questions or concerns that arise at home. 07/20 17:47 Order name: Flu; Complete Time: 18:39 kb 07/20 17:47 Order name: SARS-COV-2 Antigen Rapid; Complete Time: 18:15 kb 07/20 17:47 Order name: RSV; Complete Time: 18:39 kb Administered Medications: No medications were administered Disposition Summary: 07/20/24 18:57 Discharge Ordered Notes: Location: Home kb Condition: Stable kb Diagnosis - Acute upper respiratory infection, unspecified kb Followup: kb - With: Emergency Department - When: As needed - Reason: Worsening of condition Followup: kb - With: Private Physician - When: 2 - 3 days - Reason: Recheck today's complaints, Continuance of care, Re-evaluation by your physician Discharge Instructions: - Discharge Summary Sheet kb - Upper Respiratory Infection, Adult, [id number] kb - Viral Respiratory Infection, [id number] kb Forms: - Work release form kb - Medication Reconciliation Form kb - Antibiotic Education kb - Prescription Opioid Use kb - Patient Portal Instructions kb - Leadership Thank You Letter kb Signatures: Dispatcher [employer] Keisha Osorio, GARDENIA-C GARDENIA-Rachel Langston RN RN iw Corrections: (The following items were deleted from the chart) 18:57 17:45 Pt is a 49 year old female who presents for cough and congestion that started kb yesterday with headache, back pain and subjective fever that started at 0130 this morning. REports post tussive vomiting x1 and diarrhea x2. . kb
--- NOTE | 2024-07-20 18:57 | ER ---
Nurse's Notes [facility] Name: Bonnie Rivers Age: 49 yrs Sex: Female : 1975 Arrival Date: 07/20/2024 Time: 17:31 Bed IW1 Private MD: Diagnosis: Acute upper respiratory infection, unspecified Presentation: 07/20 17:40 Chief complaint: Patient states: woke up at 0130 this morning, running fever, cough , iw felt spasms in her shoulder blades. Coronavirus screen: Client presents with at least one sign or symptom that may indicate coronavirus-19. Ebola Screen: No symptoms or risks identified at this time. Initial Sepsis Screen: Does the patient meet any 2 criteria? No. Patient's initial sepsis screen is negative. Does the patient have a suspected source of infection? No. Patient's initial sepsis screen is negative. Risk Assessment: Do you want to hurt yourself or someone else? Patient reports no desire to harm self or others. Onset of symptoms was July 20, 2024. 17:40 Method Of Arrival: Ambulatory iw 17:40 Acuity: DARIA 4 iw Triage Assessment: 19:24 Headache History: The patient has had previous headaches and this one is similar to kl previous episodes. General: Appears in no apparent distress. comfortable, Behavior is calm, cooperative. Pain: Also complains of no other associated symptoms. Pain: Pain. 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 - Infectious Disease History:: Denies. - Social history:: Smoking status: Patient reports the use of cigarette tobacco products, smokes one-half pack cigarettes per day. Screenin:02 [facility] ED Fall Risk Assessment (Adult) History of falling in the last 3 months, iw including since admission No falls in past 3 months (0 pts) Confusion or Disorientation No (0 pts) Intoxicated or Sedated No (0 pts) Impaired Gait No (0 pts) Mobility Assist Device Used No (0 pt) Altered Elimination No (0 pt) Score/Fall Risk Level 0 - 2 = Low Risk Oriented to surroundings. Abuse screen: Denies threats or abuse. Denies injuries from another. Nutritional screening: No deficits noted. Tuberculosis screening: No symptoms or risk factors identified. Assessment: 17:45 General: Appears in no apparent distress. Behavior is calm, cooperative. General: iw Reports feeling ill for fatigue for. Pain: Complains of pain in head. Neuro: Level of Consciousness is awake, alert, obeys commands, Oriented to person, place, time, situation, Moves all extremities. Full function. Cardiovascular: Patient's skin is warm and dry. Respiratory: Respiratory effort is even, unlabored, Respiratory pattern is regular. Derm: Skin is intact, is healthy with good turgor. Musculoskeletal: Range of motion: intact in all extremities. 19:23 Cardiovascular: No deficits noted. Respiratory: No deficits noted. Airway is patent kl Trachea midline Respiratory effort is even, unlabored, Respiratory pattern is regular, symmetrical. Vital Signs: 17:40 BP 135 / 96; Pulse 99; Resp 18; Temp 97.6; Pulse Ox 99% on R/A; Weight 78.47 kg; Height iw 5 ft. 6 in. ; Pain 9/10; 17:40 Body Mass Index 27.92 (78.47 kg, 167.64 cm) iw 17:40 Pain Scale: Adult ED Course: 17:33 Patient arrived in ED. ra3 17:36 Keisha Saleh FNP-C is [facility]. kb 17:36 Adarsh Sanford MD is Attending Physician. kb 17:41 Triage completed. iw 17:42 Arm band placed on. iw 19:01 Rachel Bean, RN is Primary Nurse. iw 19:23 No provider procedures requiring assistance completed. Patient did not have IV access kl during this emergency room visit. Administered Medications: No medications were administered Medication: 19:02 VIS not applicable for this client. Outcome: 18:57 Discharge ordered by . kb 19:23 Discharged to home ambulatory, with family, 19:23 Condition: stable 19:23 Discharge instructions given to patient, Instructed on discharge instructions, follow up and referral plans. Demonstrated understanding of instructions, follow-up care, 19:25 Patient left the ED. Signatures: Keisha Saleh FNP-C FNP-Ckb Lewis, Kimberly, RN RN Vikas, Rachel, RN RN iw Castro, Dana ra3
[2024-07-21 01:53] VITALS: BP 135/96; TEMP 97.6; O2SAT 99
== END 2024-07-20 19:25 | disposition home or self-care (01) ==
LOC: ER 17:31
DX: J06.9 Acute upper respiratory infection, unspecified (principal); Z11.52 Encounter for screening for COVID-19
CPT/HCPCS: 36415; 87804; 87807; 87811; 99282

== ENCOUNTER 2025-03-24 12:17 | Emergency (ER) | payer OTHER ==
--- OUTSIDE RECORDS SUMMARY | 2025-03-24 12:24 | XMS REPORT | Continuity of Care Document ---
Author Name Unknown Address [address] [facility] [place]. [address] [place] [address] Organization [facility] Address [address] [facility]. [address] [place] [address] Care Team Providers Care Agile Qa Tester Name Role Phone Janis Pimentel Primary Care Physician [phone] Allergies, Adverse Reactions, Alerts Allergy Name Allergy Type Status Severity Reaction(s) Onset Date Inactive Date Treating Clinician Comments Source none (Not Checked) Propens[facility] ty to adverse reaction to drug Active 03-18 00:00: 00 Delroy Umana Medications Ordered Medication Name Filled Medication Name Start Date Stop Date Current Medication? Ordering Clinician Indication Dosage Frequency Signature (SIG) Comments Components Source buspirone 7.5 mg tablet - 00:00: 00 Yes mg Delroy Umana mirtazapine 45 mg tablet 8- 00:00: 00 Yes 1mg Delroy Umana lamotrigine 100 mg tablet 8- 00:00: 00 Yes 1mg Delroy Umana buspirone 7.5 mg tablet 12-30 00:00: 00 Yes mg Delroy Umana mirtazapine 45 mg tablet 16 00:00: 00 Yes 1mg Delroy Umana losartan 100 mg tablet -16 00:00: 00 Yes 1mg Delroy Umana lamotrigine 100 mg tablet -16 00:00: 00 Yes 1mg Delroy Umana hydroxyzine HCl 25 mg tablet -16 00:00: 00 Yes 1mg Delroy Umana [employer] Developer a 150 mg/mL intramuscul ar syringe 4-08 00:00: 00 Yes 1mg/mL Delroy Umana buspirone 7.5 mg tablet 1-27 00:00: 00 Yes mg Delroy Umana [employer] Developer a 150 mg/mL intramuscul ar syringe -27 00:00: 00 Yes 1mg/mL Delroy Umana [employer] Services Developer a 150 mg/mL intramuscul ar syringe 2023-08 1- 00:00: 00 Yes 1mg/mL Delroy Umana hydroxyzine HCl 25 mg tablet 2023-08 0-28 00:00: 00 Yes 1mg Delroy Umana buspirone 7.5 mg tablet 2023-08 0- 00:00: 00 Yes mg Delroy Umana mirtazapine 45 mg tablet 2023-08 0- 00:00: 00 Yes 1mg Dleroy Umana losartan 100 mg tablet 2023-08 0- 00:00: 00 Yes 1mg Delroy Umana lamotrigine 100 mg tablet 2023-08 0- 00:00: 00 Yes 1mg Delroy Umana hydroxyzine HCl 25 mg tablet 2023-08 0- 00:00: 00 Yes 1mg Delroy Umana hydroxyzine HCl 25 mg tablet -27 00:00: 00 Yes 12mg Delroy Umana buspirone 7.5 mg tablet 0 8- 00:00: 00 Yes mg Delroy Umana mirtazapine 45 mg tablet 2023-0 8- 00:00: 00 Yes 1mg Delroy Umana losartan 100 mg tablet 0 8-02 00:00: 00 Yes 1mg Delroy Umana hydroxyzine HCl 25 mg tablet 0 8-02 00:00: 00 Yes 12mg Delroy Umana losartan 100 mg tablet 0 7-10 00:00: 00 Yes 1mg Delroy Umana [employer] Services Developer a 150 mg/mL intramuscul ar syringe 6-07 00:00: 00 Yes 1mg/mL Delroy Umana buspirone 7.5 mg tablet 0 5-24 00:00: 00 Yes mg Delroy Umana mirtazapine 45 mg tablet 2024-0 5-24 00:00: 00 Yes 1mg Delroy Umana lamotrigine 100 mg tablet -24 00:00: 00 Yes 1mg Delroy Umana hydroxyzine HCl 25 mg tablet - 00:00: 00 Yes 12mg Delroy Umana buspirone 5 mg tablet 11-12 00:00: 00 Yes mg Delroy Umana hydroxyzine HCl 25 mg tablet 29 00:00: 00 Yes 12mg Delroy Umana TAKE ONE (1) TABLET(S) BY MOUTH DAILY. 09-30 00:00: 00 Yes 100 Delroy Umana TAKE 1 TABLET AT BEDTIME. 09-30 [...] BY MOUTH AT NIGHT. 2022-08 00:00: 00 Yes Delroy Umana TAKE [...] MOUTH EVERY EIGHT HOURS FOR 10 DAYS. 2023-0 9-11 00:00: 00 12-14 00:00 :00 No Delroy F Dong TAKE 1 TABLET DAILY. 0 8-07 00:00: 00 12-14 00:00 :00 No 100 Delroy F Dong TAKE ONE (1) TABLET(S) BY MOUTH EVERY MORNING AND EVERY AFTERNOON. TAKE TWO (2) TABLETS BY MOUTH AT NIGHT. 0 8 00:00: 00 12-14 00:00 :00 No 5 Delroy F Dong TAKE 1 TABLET DAILY. 0 8- 00:00: 00 12-14 00:00 :00 No 15 Delroy F Dong TAKE 1 TABLET AT BEDTIME. 0 8 00:00: 00 12-14 00:00 :00 No 45 Delroy F Dong TAKE ONE (1) TABLET(S) BY MOUTH EVERY MORNING AND EVERY AFTERNOON. TAKE TWO (2) TABLETS BY MOUTH AT NIGHT. 0 7 00:00: 00 Yes Delroy F Dong TAKE 1 TABLET DAILY. 0 7 00:00: 00 12-14 00:00 :00 No 15 Delroy F Dong TAKE ONE (1) TABLET(S) BY MOUTH DAILY AT BEDTIME. 0 7 00:00: 00 12-14 00:00 :00 No Delroy F Dong TAKE ONE (1) TABLET(S) BY MOUTH ONCE A DAY. 0 6 00:00: 00 Yes Delroymurphy Umana TAKE 1 TABLET DAILY. 0 6 00:00: 00 12-14 00:00 :00 No 100 Delroy F Dong TAKE ONE (1) TABLET(S) BY MOUTH AT BEDTIME. 0 6- 00:00: 00 12-14 00:00 :00 No Delroy F Dong TAKE ONE (1) TABLET(S) BY MOUTH EVERY MORNING AND EVERY AFTERNOON. TAKE TWO (2) TABLETS BY MOUTH AT NIGHT. 0 6-05 00:00: 00 12-14 00:00 :00 No 5 Delroy F Dong TAKE ONE (1) TABLET(S) BY MOUTH EVERY MORNING AND EVERY AFTERNOON. TAKE TWO (2) TABLETS BY MOUTH AT NIGHT. 5-15 00:00: 00 Yes Delroy F Dong TAKE 1 TABLET DAILY. 5- 00:00: 00 12-14 00:00 :00 No 15 Delroy F Dong TAKE ONE (1) TABLET(S) BY MOUTH DAILY. 5- 00:00: 00 12-14 00:00 :00 No Delroy F Dong TAKE ONE (1) TABLET NEEDED TWICE DAILY. 5 00:00: 00 12-14 00:00 :00 No Delroy F Dong TAKE ONE (1) TABLET(S) BY MOUTH AT BEDTIME. 5 00:00: 00 12-14 00:00 :00 No Delroy F Dong TAKE ONE (1) TABLET(S) BY MOUTH DAILY. 12-15 00:00: 00 12-14 00:00 :00 No Delroy F Dong TAKE ONE (1) TABLET(S) BY MOUTH EVERY TWELVE HOURS NEEDED FOR PAIN. 12-12 00:00: 00 12-14 00:00 :00 No Delroy F Dong TAKE ONE (1) CAPSULE(S) BY MOUTH DAILY. 12-12 00:00: 00 12-14 00:00 :00 No Delroy F Dong TAKE ONE (1) TABLET(S) BY MOUTH ONCE A DAY. 4- 00:00: 00 Yes 100 Delroy F Dong TAKE 1 TABLET DAILY. 4- 00:00: 00 12-14 00:00 :00 No 15 Delroy F Dong TAKE ONE TABLET NEEDED TWICE DAILY. 0 4-17 00:00: 00 12-14 00:00 :00 No 5 Delroy F Dong TAKE 1 TABLET AT BEDTIME. 0 4-17 00:00: 00 12-14 00:00 :00 No 45 Delroy F Dong TAKE 1 TABLET DAILY. 0 4-17 00:00: 00 12-14 00:00 :00 No 100 Delroy F Dong TAKE ONE (1) TABLET(S) BY MOUTH DAILY. 0 2-13 00:00: 00 12-14 00:00 :00 No Delroy F Dong TAKE ONE (1) TABLET(S) BY MOUTH ONCE A DAY BEFORE BEDTIME. 2-13 00:00: 00 12-14 00:00 :00 No Delroy F Dong TAKE ONE (1) TABLET(S) BY MOUTH DAILY AT BEDTIME. 2021-08-30 00:00: 00 12-14 00:00 :00 No Delroy F Dong TAKE ONE (1) TABLET(S) BY MOUTH ONCE A DAY IN THE MORNING. 2021-08 0-14 00:00: 00 Yes Delroy F Dong TAKE ONE (1) TABLET(S) BY MOUTH ONCE A DAY BEFORE BEDTIME. 2021-08 0-14 00:00: 00 12-14 00:00 :00 No Delroy F Dong TAKE ONE (1) TABLET(S) BY MOUTH DAILY. 7-06 00:00: 00 12-14 00:00 :00 No Delroy F Dong TAKE ONE (1) TABLET(S) BY MOUTH EVERY MORNING. 0 7-06 00:00: 00 12-14 00:00 :00 No Delroy F Dong TAKE ONE (1) TABLET(S) BY MOUTH AT BEDTIME. 7-06 00:00: 00 12-14 00:00 :00 No Delroy F Dong TAKE ONE (1) TABLET(S) BY MOUTH AT BEDTIME. 6-12 00:00: 00 12-14 00:00 :00 No Delroy F Dong TAKE 1 TABLET BY MOUTH ONCE DAILY IN THE MORNING 0 6-03 00:00: 00 12-14 00:00 :00 No Delroy F Dong TAKE TWO (2) TABLET(S) BY MOUTH AT BEDTIME. 0 6-03 00:00: 00 12-14 00:00 :00 No Delroy F Dong TAKE ONE (1) TABLET(S) BY MOUTH AT BEDTIME NEEDED. 0 5-19 00:00: 00 12-14 00:00 :00 No Delroy F Dong TAKE ONE (1) TABLET(S) BY MOUTH TWICE A DAY WITH MEALS. 01-02 00:00: 00 12-14 00:00 :00 No Delroy Umana ibuprofen 800 mg tablet 01-26 00:00: 00 Yes 1mg Delroy Umana hydroxyzine HCl 25 mg tablet 09-11 00:00: 00 Yes 1mg Delroy Umana Paxil 40 mg tablet 09-04 00:00: 00 Yes 1mg Delroy Umana ranitidine 150 mg tablet 2015-08 00:00: 00 Yes 1mg Delroy Umana Paxil 40 mg tablet 2015-08 00:00: 00 Yes 1mg Delroy Umana Paxil 40 mg tablet 12-30 00:00: 00 Yes 1mg Delroy Umana Bactrim DS 800 mg-160 mg tablet 12-30 00:00: 00 Yes 1mg Delroy Umana hydroxyzine HCl 25 mg tablet 12-30 00:00: 00 Yes 1mg Delroy Umana prednisone 20 mg tablet 2014-08 00:00: 00 Yes 1mg Delroy Umana hydroxyzine HCl 10 mg tablet 2014-08 00:00: 00 Yes 1mg Delroy Umana Elimite 5 % topical cream 2014-08 00:00: 00 Yes % Delroy Umana Paxil 40 mg tablet 2014-08 00:00: 00 Yes 1mg Delroy Umana Medrol (Kamar) 4 mg tablets in a dose pack 2014-08 00:00: 00 Yes 1mg Delroy Umana Zoloft 50 mg tablet 04-26 00:00: 00 Yes 1mg Delroy Umana Zoloft 25 mg tablet 04-26 00:00: 00 Yes 1mg Delroy Umana Paxil 40 mg tablet 04-26 00:00: 00 Yes 1mg Delroy Umana naproxen 500 mg tablet 04-26 00:00: 00 Yes 1mg Delroy Umana Vital Signs Vital Name Observation Time Observation Value Comments S pablito BP Systolic 2024-11-22 11:35:00 145 mm[Hg] Juan Umana BP Diastolic 2024-11-22 11:35:00 95 mm[Hg] Brenton Umana Weight Measured 2024-11-22 11:35:00 176.00 pounds Delroy F Dong Height Measured 2024-11-22 11:35:00 63.00 inches Delroy F Dong Body Temperature 2024-11-22 11:35:00 97.30 degrees Delroy F Dong Heart Rate 2024-11-22 11:35:00 89.00 /min Felipa en F Dong Respiratory Rate 2024-11-22 11:35:00 16.00 /min Delroy F Dong BP Systolic 2024-09-12 10:20:00 138 mm[Hg] Step hen F Dong BP Diastolic 2024-09-12 10:20:00 87 mm[Hg] Brenton phen F Dong Weight Measured 2024-09-12 10:20:00 176.20 pounds Delroy F Dong Height Measured 2024-09-12 10:20:00 63.00 inches Delroy F Dong Body Temperature 2024-09-12 10:20:00 97.40 degrees Delroy F Dong Heart Rate 2024-09-12 10:20:00 81.00 /min Felipa en F Dong Respiratory Rate 2024-09-12 10:20:00 16.00 /min Delroy F Dong BP Systolic 2024-06-25 11:18:00 124 mm[Hg] Step [...] phen F Dong Weight Measured 2023-09-30 16:06:00 Delroymurphy Umana Height Measured 2023-09-30 16:06:00 Delroy F Dong Body Temperature 2023-09-30 16:06:00 Delroy F Dong Heart Rate 2023-09-30 16:06:00 Felipa en F Dong Respiratory Rate 2023-09-30 16:06:00 Delroy F Dong BP Systolic 2023-07-18 12:30:00 104 mm[Hg] Step hen F Dong BP Diastolic 2023-07-18 12:30:00 72 mm[Hg] Brenton phen F Dong Weight Measured 2023-07-18 12:30:00 159.60 pounds Delroy Umana Height Measured 2023-07-18 12:30:00 63.00 inches Delroymurphy Umana Body Temperature 2023-07-18 12:30:00 98.40 degrees Delroy F Dong Heart Rate 2023-07-18 12:30:00 79.00 /min Felipa en F Dong Respiratory Rate 2023-07-18 12:30:00 18.00 /min Delroy F Dong BP Systolic 2023-07-17 13:20:00 176 mm[Hg] Step hen F Dong BP Diastolic 2023-07-17 13:20:00 60 mm[Hg] Brenton phen F Dong Weight Measured 2023-07-17 13:20:00 Delroy Umana Height Measured 2023-07-17 13:20:00 Delroymurphy Umana Body Temperature 2023-07-17 13:20:00 Delroy F Dong Heart Rate 2023-07-17 13:20:00 88.00 /min Felipa en F Dong Respiratory Rate 2023-07-17 13:20:00 Delroy Bharat Umana Encounters Start Date/Time End Date/Time Encounter Type Admission Type Attending [facility] [place] Facility Care Department Encounter ID Source 2025-03-17 00:00:00 2025-03-17 00:00:00 Outpatient Visit SFA [id number] Delroy Umana 2025-02-13 09:50:31 2025-02-13 09:50:31 Outpatient SFA [id number] [id number] Delroy Umana 2024-12-20 14:27:13 2024-12-20 14:27:13 Outpatient SFA SFA [id number] Delroy Umana 2024-12-20 00:00:00 2024-12-20 00:00:00 Outpatient Visit SFA [id number] Delroy Umana 2024-11-22 11:25:06 2024-11-22 11:25:06 Outpatient SFA SFA [id number] Delroy Umana 2024-11-22 00:00:00 2024-11-22 00:00:00 Outpatient Visit SFA [id number] Delroy Umana 2024-09-12 10:13:32 2024-09-12 10:13:32 Outpatient SFA SFA [id number] Delroy Umana 2024-09-12 00:00:00 2024-09-12 00:00:00 Outpatient Visit SFA [id number] Delroy Umana 2024-08-22 18:39:20 2024-08-22 18:39:20 Outpatient SFA SFA [id number] Delroy Umana 2024-08-22 00:00:00 2024-08-22 00:00:00 Outpatient Visit SFA [id number] Delroy Umana 2024-06-25 11:02:35 2024-06-25 11:02:35 Outpatient SFA SFA [id number] Delroy Umana 2024-06-25 00:00:00 2024-06-25 00:00:00 Outpatient Visit SFA [id number] Delroy Umana 2024-06-11 09:21:08 2024-06-11 09:21:08 Outpatient SFA SFA [id number] Delroy Umana 2024-06-07 11:21:46 2024-06-07 11:21:46 Outpatient SFA SFA [id number] Delroy Umana 2024-06-07 00:00:00 2024-06-07 00:00:00 Outpatient Visit SFA [id number] Delroy Umana 2024 10:11:12 2024 10:11:12 Outpatient SFA SFA [id number] Delroy Umana 2024-03-18 00:00:00 2024-03-18 00:00:00 Outpatient Visit SFA [id number] Delroy Umana 2024-01-22 09:41:09 2024-01-22 09:41:09 Outpatient SFA SFA [id number] Delroy Umana 2024-01-22 00:00:00 2024-01-22 00:00:00 Outpatient Visit SFA [id number] Delroy Umana 2024-01-08 13:25:34 2024-01-08 13:25:34 Outpatient SFA SFA [id number] Delroy Umana 2024-01-08 00:00:00 2024-01-08 00:00:00 Outpatient Visit SFA [id number] Delroy Umana 2024-01-05 15:06:23 2024-01-05 15:06:23 Outpatient SFA SFA [id number] Delroy Umana 2024-01-05 00:00:00 2024-01-05 00:00:00 Outpatient Visit SFA [id number] Delroy Umana 2023-12-03 11:41:47 2023-12-03 11:41:47 Outpatient [facility] [id number] Delroy Umana 2023-12-03 00:00:00 2023-12-03 00:00:00 Outpatient Visit [facility] [id number] Delroy Umana 2023-11-13 00:00:00 2023-11-13 00:00:00 Outpatient Visit [facility] [id number] Delroy Umana 2023-07-18 12:16:07 2023-07-18 12:16:07 Outpatient [facility] [id number] Delroy Umana 2023-03-23 13:11:22 2023-03-23 13:11:22 Outpatient [facility] [id number] Delroy Umana 2023-02-20 15:44:58 2023-02-20 15:44:58 Outpatient [facility] [id number] Delroy Umana Results Test Description Test Time Test Comments Results Result Co mments Source COMPREHENSIVE METABOLIC [id number] 23:22:10* Test Item Value Reference Range Interpretation Comme nts GLUCOSE (test code = 2217) 88 MG/DL 70-99 BUN (test code = 2208) 13 MG/DL 6-20 CREATININE (test code = 2214) 0.70 MG/DL 0.60-1.30 eGFR (2020 CKD-EPI) (test code = 45693) 107 ML/MIN/1.73 >60 CALC BUN/CREAT (test code = 2235) 19 RATIO 6-28 SODIUM (test code = 2231) [...] RATIO (test code = 2234) 1.7 RATIO 1.0-2.6 BILIRUBIN, TOTAL (test code = 2207) 0.2 MG/DL <=1.2 ALKALINE PHOSPHATASE (test code = 2204) 100 U/L 40-120 AST (test code = 2218) 26 U/L 9-40 ALT (test code = 2219) 31 U/L 5-40 HEMOGLOBIN [id number] 03:53:03* Test Item Value Reference Range Interpretation Comme nts HEMOGLOBIN A1c (test code = 04544) 5.1 % 4.2-5.6 UNLESS OTHERWISE INDICATED, ALL TESTING PERFORMED AT [facility] [employer] [address] [place] [address] SENIOR ELECTRICAL CONTROLS ENGINEER: HENRY LOVE M.D. CLIA NUMBER [id number] [facility] [place] [place]. [id number] LIPID [id number] 00:00:00* Test Item Value Reference Range Interpretation Comme nts CHOLESTEROL (test code = 2210) 150 MG/DL TRIGLYCERIDES (test code = 2232) 66 MG/DL HDL CHOLESTEROL (test code = 2220) 38 MG/DL CALC LDL CHOL (test code = 2237) 97 MG/DL RISK RATIO LDL/HDL (test cod e = 2238) 2.55 RATIO Delroy UmanaCOMPREHENSIVE METABOLIC [id number] 00:00:00* Test Item Value Reference Range Interpretation Comme nts GLUCOSE (test code = 2217) 88 MG/DL BUN (test code = 2208) 13 MG/DL CREATININE (test code = 2214) 0.70 MG/DL eGFR (2020 CKD-EPI) (test code = 20604) 107 ML/MIN/1.73 CALC BUN/CREAT (test code = [...] code = 2219) 31 U/L Delroy UmanaHEMOGLOBIN [id number] 00:00:00* Test Item Value Reference Range Interpretation Comme anand HEMOGLOBIN A1c (test code = 13988) 5.1 % Delroy UmanaLIPID [id number] 00:00:00* Test Item Value Reference Range Interpretation Comme nts CHOLESTEROL (test code = 2210) 150 MG/DL TRIGLYCERIDES (test code = 2232) 66 MG/DL HDL CHOLESTEROL (test code = 2220) 38 MG/DL CALC LDL CHOL (test code = 2237) 97 MG/DL RISK RATIO LDL/HDL (test cod e = 2238) 2.55 RATIO Delroy UmanaCOMPREHENSIVE METABOLIC [id number] 00:00:00* Test Item Value Reference Range Interpretation Comme nts GLUCOSE (test code = 2217) 88 MG/DL BUN (test code = 2208) 13 MG/DL CREATININE (test code = 2214) 0.70 MG/DL eGFR (2020 CKD-EPI) (test code = 08711) 107 ML/MIN/1.73 CALC BUN/CREAT (test code = [...] code = 2219) 31 U/L Delroy UmanaHEMOGLOBIN [id number] 00:00:00* Test Item Value Reference Range Interpretation Comme anand HEMOGLOBIN A1c (test code = 27273) 5.1 % Delroy Nicholson AustinLIPID [id number] 00:00:00* Test Item Value Reference Range Interpretation Comme nts CHOLESTEROL (test code = 2210) 150 MG/DL TRIGLYCERIDES (test code = 2232) 66 MG/DL HDL CHOLESTEROL (test code = 2220) 38 MG/DL CALC LDL CHOL (test code = 2237) 97 MG/DL RISK RATIO LDL/HDL (test cod e = 2238) 2.55 RATIO Delroy UmanaCOMPREHENSIVE METABOLIC [id number] 00:00:00* Test Item Value Reference Range Interpretation Comme nts GLUCOSE (test code = 2217) 88 MG/DL BUN (test code = 2208) 13 MG/DL CREATININE (test code = 2214) 0.70 MG/DL eGFR (2020 CKD-EPI) (test code = 39450) 107 ML/MIN/1.73 CALC BUN/CREAT (test code = [...] code = 2219) 31 U/L Delroy UmanaHEMOGLOBIN [id number] 00:00:00* Test Item Value Reference Range Interpretation Comme nts HEMOGLOBIN A1c (test code = 03054) 5.1 % Delroy Nicholson AustinLIPID [id number] 00:00:00* Test Item Value Reference Range Interpretation Comme nts CHOLESTEROL (test code = 2210) 150 MG/DL TRIGLYCERIDES (test code = 2232) 66 MG/DL HDL CHOLESTEROL (test code = 2220) 38 MG/DL CALC LDL CHOL (test code = 2237) 97 MG/DL RISK RATIO LDL/HDL (test cod e = 2238) 2.55 RATIO Delroy UmanaCOMPREHENSIVE METABOLIC [id number] 00:00:00* Test Item Value Reference Range Interpretation Comme nts GLUCOSE (test code = 2217) 88 MG/DL BUN (test code = 2208) 13 MG/DL CREATININE (test code = 2214) 0.70 MG/DL eGFR (2020 CKD-EPI) (test code = 32044) 107 ML/MIN/1.73 CALC BUN/CREAT (test code = [...] code = 2219) 31 U/L Delroy UmanaHEMOGLOBIN [id number] 00:00:00* Test Item Value Reference Range Interpretation Comme nts HEMOGLOBIN A1c (test code = 57982) 5.1 % Delroy UmanaLIPID [id number] 00:00:00* Test Item Value Reference Range Interpretation Comme nts CHOLESTEROL (test code = 2210) 150 MG/DL TRIGLYCERIDES (test code = 2232) 66 MG/DL HDL CHOLESTEROL (test code = 2220) 38 MG/DL CALC LDL CHOL (test code = 2237) 97 MG/DL RISK RATIO LDL/HDL (test cod e = 2238) 2.55 RATIO Delroy UmanaCOMPREHENSIVE METABOLIC [id number] 00:00:00* Test Item Value Reference Range Interpretation Comme nts GLUCOSE (test code = 2217) 88 MG/DL BUN (test code = 2208) 13 MG/DL CREATININE (test code = 2214) 0.70 MG/DL eGFR (2020 CKD-EPI) (test code = 13773) 107 ML/MIN/1.73 CALC BUN/CREAT (test code = [...] code = 2219) 31 U/L Delroy UmanaHEMOGLOBIN [id number] 00:00:00* Test Item Value Reference Range Interpretation Comme nts HEMOGLOBIN A1c (test code = 85263) 5.1 % Delroy Nicholson AustinLIPID [id number] 00:00:00* Test Item Value Reference Range Interpretation Comme nts CHOLESTEROL (test code = 2210) 150 MG/DL TRIGLYCERIDES (test code = 2232) 66 MG/DL HDL CHOLESTEROL (test code = 2220) 38 MG/DL CALC LDL CHOL (test code = 2237) 97 MG/DL RISK RATIO LDL/HDL (test cod e = 2238) 2.55 RATIO Delroy Nicholson AustinCOMPREHENSIVE METABOLIC [id number] 00:00:00* Test Item Value Reference Range Interpretation Comme nts GLUCOSE (test code = 2217) 88 MG/DL BUN (test code = 2208) 13 MG/DL CREATININE (test code = 2214) 0.70 MG/DL eGFR (2020 CKD-EPI) (test code = 64437) 107 ML/MIN/1.73 CALC BUN/CREAT (test code = [...] code = 2219) 31 U/L Delroy UmanaHEMOGLOBIN [id number] 00:00:00* Test Item Value Reference Range Interpretation Comme nts HEMOGLOBIN A1c (test code = 63397) 5.1 % Delroy UmanaLIPID [id number] 00:00:00* Test Item Value Reference Range Interpretation Comme nts CHOLESTEROL (test code = 2210) 150 MG/DL TRIGLYCERIDES (test code = 2232) 66 MG/DL HDL CHOLESTEROL (test code = 2220) 38 MG/DL CALC LDL CHOL (test code = 2237) 97 MG/DL RISK RATIO LDL/HDL (test cod e = 2238) 2.55 RATIO Delroy UmanaCOMPREHENSIVE METABOLIC [id number] 00:00:00* Test Item Value Reference Range Interpretation Comme nts GLUCOSE (test code = 2217) 88 MG/DL BUN (test code = 2208) 13 MG/DL CREATININE (test code = 2214) 0.70 MG/DL eGFR (2020 CKD-EPI) (test code = 54964) 107 ML/MIN/1.73 CALC BUN/CREAT (test code = [...] code = 2219) 31 U/L Delroy UmanaHEMOGLOBIN [id number] 00:00:00* Test Item Value Reference Range Interpretation Comme nts HEMOGLOBIN A1c (test code = 53328) 5.1 % Delroy UmanaCBC W/AUTO DIFF WITH [id number] 02:16:53* Test Item Value Reference Range Interpretation [...] 0.00-0.10 ABS NUCLEATED RBCS (test code = 86568) 0.00 K/UL 0.00-0.11 UNLESS OTHER SANCHEZ INDICATED, ALL TESTING PERFORMED AT [facility] [employer] [employer] [address] [place] [id number] SENIOR ELECTRICAL CONTROLS ENGINEER: HENRY LOVE M.D. CLIA NUMBER [id number] [facility] [place]. [id number] CBC W/AUTO [id number] 00:00:00* Test Item Value Reference Range Interpretation [...] ABS NUCLEATED RBCS (test cod e = 65990) 0.00 K/UL Delroy Nicholson [facility] W/AUTO [id number] 00:00:00* Test Item Value Reference Range Interpretation [...] ABS NUCLEATED RBCS (test cod e = 02429) 0.00 K/UL Delroy Nicholson [facility] W/AUTO [id number] 00:00:00* Test Item Value Reference Range Interpretation [...] ABS NUCLEATED RBCS (test cod e = 05085) 0.00 K/UL Delroy [facility] W/AUTO [id number] 00:00:00* Test Item Value Reference Range Interpretation [...] ABS NUCLEATED RBCS (test cod e = 77333) 0.00 K/UL Delroy Nicholson [facility] W/AUTO [id number] 00:00:00* Test Item Value Reference Range Interpretation [...] ABS NUCLEATED RBCS (test cod e = 79575) 0.00 K/UL Delroy Nicholson [facility] W/AUTO [id number] 00:00:00* Test Item Value Reference Range Interpretation [...] ABS NUCLEATED RBCS (test cod e = 22961) 0.00 K/UL Delroy F [facility]WH[facility] W/AUTO [id number] 00:00:00* Test Item Value Reference Range Interpretation [...] ABS NUCLEATED RBCS (test cod e = 20090) 0.00 K/UL Delroy Nicholson [facility] W/AUTO [id number] 00:00:00* Test Item Value Reference Range Interpretation [...] ABS NUCLEATED RBCS (test cod e = 01924) 0.00 K/UL Delroy [facility] W/AUTO [id number] 00:00:00* Test Item Value Reference Range Interpretation [...] ABS NUCLEATED RBCS (test cod e = 59384) 0.00 K/UL Delroy [facility] W/AUTO [id number] 00:00:00* Test Item Value Reference Range Interpretation [...] ABS NUCLEATED RBCS (test cod e = 62051) 0.00 K/UL Delroy Nicholson Morales, [id number] 13:56:42SPECIMEN NUMBER: [id number] CULTURE, URINE SPECIMEN NUMBER: [id number] SPECIMEN COMMENT: URINE SOURCE: URINE REPORT STATUS: FINAL ISOLATE NUMBER 1: ORGANISM: 07/20/2023 50-100,000 CFU/ML GRAM NEGATIVE BACILLI IDENTIFICATION: 07/22/2023 ESCHERICHIA COLI E. COLI AMOXICILLIN/CA SENSITIVE<=8/4AMPICILLIN SENSITIVE <=8CEFAZOLIN SENSITIVE 4CEFTRIAXONE SENSITIVE <=1CIPROFLOXACIN RESISTANT >2LEVOFLOXACIN RESISTANT >4NITROFURANTOIN SENSITIVE <=32PIP/TAZOBAC SENSITIVE <=16TETRACYCLINE RESISTANT >8TOBRAMYCIN SENSITIVE <=4TRIMETH/SULFA SENSITIVE <=2/38 NOTE: NUMBERS DISPLAYED REPRESENT MINIMUM INHIBITORY CONCENTRATION (JAYDE) WHICH IS EXPRESSED IN MCG/ML.CULTURE, [id number] 00:00:00* Test Item Value Reference Range Interpretation Comme nts CULTURE, URINE (test code = 79069) SPECIMEN NUMBER: [id number] Delroy Nielsen, [id number] 00:00:00* Test Item Value Reference Range Interpretation Comme nts CULTURE, URINE (test code = 58224) SPECIMEN NUMBER: [id number] Delroy Nielsen [id number] 00:00:00* Test Item Value Reference Range Interpretation Comme nts CULTURE, URINE (test code = 76537) SPECIMEN NUMBER: [id number] Delroy Nielsen [id number] 00:00:00* Test Item Value Reference Range Interpretation Comme nts CULTURE, URINE (test code = 62984) SPECIMEN NUMBER: [id number] Delroy Nielsen [id number] 00:00:00* Test Item Value Reference Range Interpretation Comme nts CULTURE, URINE (test code = 08304) SPECIMEN NUMBER: [id number] Delroy Nielsen [id number] 00:00:00* Test Item Value Reference Range Interpretation Comme nts CULTURE, URINE (test code = 80172) SPECIMEN NUMBER: [id number] Delroy Nielsen, [id number] 00:00:00* Test Item Value Reference Range Interpretation Comme nts CULTURE, URINE (test code = 14354) SPECIMEN NUMBER: [id number] Delroy Nielsen, [id number] 00:00:00* Test Item Value Reference Range Interpretation Comme nts CULTURE, URINE (test code = 28099) SPECIMEN NUMBER: [id number] Delroy Nielsen, [id number] 00:00:00* Test Item Value Reference Range Interpretation Comme nts CULTURE, URINE (test code = 96656) SPECIMEN NUMBER: [id number] Delroy Nielsen, [id number] 00:00:00* Test Item Value Reference Range Interpretation Comme nts CULTURE, URINE (test code = 73099) SPECIMEN NUMBER: [id number] Delroy Nielsen, [id number] 00:00:00* Test Item Value Reference Range Interpretation Comme nts CULTURE, URINE (test code = 16176) SPECIMEN NUMBER: [id number] Delroy Nielsen, [id number] 00:00:00* Test Item Value Reference Range Interpretation Comme nts CULTURE, URINE (test code = 32641) SPECIMEN NUMBER: [id number] Delroy UmanaCULTURE, [id number] 00:00:00* Test Item Value Reference Range Interpretation Comme nts CULTURE, URINE (test code = 59329) SPECIMEN NUMBER: [id number] Delroy UmanaCOMPREHENSIVE METABOLIC [id number] 01:01:45* Test Item Value Reference Range Interpretation Comme nts GLUCOSE (test code = 2217) 87 MG/DL 70-99 BUN (test code = 2207) 13 MG/DL 6-20 CREATININE (test code = 2214) 0.77 MG/DL 0.60-1.30 eGFR (2020 CKD-EPI) (test co de = 49320) 96 ML/MIN/1.73 >60 CALC BUN/CREAT (test code = 2235) 17 RATIO 6-28 SODIUM (test code = 223) [...] code = 2219) 10 U/L 5-40 LIPID [id number] 01:01:45* Test Item Value Reference Range Interpretation [...] SPECIMENS. FOR MOREINFORMATION, SEE CLIENT ANNOUNCEMENT AT [email or web address] RISK RATIO LDL/HDL (test code = 2238) 1.79 RATIO <3.22 UNLESS OTHERW ISE INDICATED, ALL TESTING PERFORMED AT [facility] [address] [place] [id number] SENIOR ELECTRICAL CONTROLS ENGINEER: HENRY LOVE M.D. CLIA NUMBER [id number] [facility] [place]. [id number] COMPREHENSIVE METABOLIC [id number] 00:00:00* Test Item Value Reference Range Interpretation Comme nts GLUCOSE (test code = 2217) 87 MG/DL BUN (test code = 2208) 13 MG/DL CREATININE (test code = 2214) 0.77 MG/DL eGFR (2020 CKD-EPI) (test co de = 89055) 96 ML/MIN/1.73 CALC BUN/CREAT (test code = [...] code = 2219) 10 U/L Delroy Nicholson [place] [id number] 00:00:00* Test Item Value Reference Range Interpretation Comme nts CHOLESTEROL (test code = 2210) 133 MG/DL TRIGLYCERIDES (test code = 2232) 76 MG/DL HDL CHOLESTEROL (test code = 2220) 42 MG/DL CALC LDL CHOL (test code = 2237) 75 MG/DL RISK RATIO LDL/HDL (test cod e = 2238) 1.79 RATIO Delroy UmanaCOMPREHENSIVE METABOLIC [id number] 00:00:00* Test Item Value Reference Range Interpretation Comme nts GLUCOSE (test code = 2217) 87 MG/DL BUN (test code = 2208) 13 MG/DL CREATININE (test code = 2214) 0.77 MG/DL eGFR (2020 CKD-EPI) (test co de = 06729) 96 ML/MIN/1.73 CALC BUN/CREAT (test code = [...] = 2219) 10 U/L Delroy Nicholson [place] [id number] 00:00:00* Test Item Value Reference Range Interpretation Comme nts CHOLESTEROL (test code = 2210) 133 MG/DL TRIGLYCERIDES (test code = 2232) 76 MG/DL HDL CHOLESTEROL (test code = 2220) 42 MG/DL CALC LDL CHOL (test code = 2237) 75 MG/DL RISK RATIO LDL/HDL (test cod e = 2238) 1.79 RATIO Delroy UmanaCOMPREHENSIVE METABOLIC [id number] 00:00:00* Test Item Value Reference Range Interpretation Comme nts GLUCOSE (test code = 2217) 87 MG/DL BUN (test code = 2208) 13 MG/DL CREATININE (test code = 2214) 0.77 MG/DL eGFR (2020 CKD-EPI) (test co de = 01412) 96 ML/MIN/1.73 CALC BUN/CREAT (test code = [...] code = 2219) 10 U/L Delroy Nicholson [place] [id number] 00:00:00* Test Item Value Reference Range Interpretation Comme nts CHOLESTEROL (test code = 2210) 133 MG/DL TRIGLYCERIDES (test code = 2232) 76 MG/DL HDL CHOLESTEROL (test code = 2220) 42 MG/DL CALC LDL CHOL (test code = 2237) 75 MG/DL RISK RATIO LDL/HDL (test cod e = 2238) 1.79 RATIO Delroy UmanaCOMPREHENSIVE METABOLIC [id number] 00:00:00* Test Item Value Reference Range Interpretation Comme nts GLUCOSE (test code = 2217) 87 MG/DL BUN (test code = 2208) 13 MG/DL CREATININE (test code = 2214) 0.77 MG/DL eGFR (2020 CKD-EPI) (test co de = 06377) 96 ML/MIN/1.73 CALC BUN/CREAT (test code = [...] code = 2219) 10 U/L Delroy UmanaLIPID [id number] 00:00:00* Test Item Value Reference Range Interpretation Comme nts CHOLESTEROL (test code = 2210) 133 MG/DL TRIGLYCERIDES (test code = 2232) 76 MG/DL HDL CHOLESTEROL (test code = 2220) 42 MG/DL CALC LDL CHOL (test code = 2237) 75 MG/DL RISK RATIO LDL/HDL (test cod e = 2238) 1.79 RATIO Delroy UmanaCOMPREHENSIVE METABOLIC [id number] 00:00:00* Test Item Value Reference Range Interpretation Comme nts GLUCOSE (test code = 2217) 87 MG/DL BUN (test code = 2208) 13 MG/DL CREATININE (test code = 2214) 0.77 MG/DL eGFR (2020 CKD-EPI) (test co de = 79641) 96 ML/MIN/1.73 CALC BUN/CREAT (test code = [...] code = 2219) 10 U/L Delroy UmanaLIPID [id number] 00:00:00* Test Item Value Reference Range Interpretation Comme nts CHOLESTEROL (test code = 2210) 133 MG/DL TRIGLYCERIDES (test code = 2232) 76 MG/DL HDL CHOLESTEROL (test code = 2220) 42 MG/DL CALC LDL CHOL (test code = 2237) 75 MG/DL RISK RATIO LDL/HDL (test cod e = 2238) 1.79 RATIO Delroy Nicholson AustinCOMPREHENSIVE METABOL[place] [id number] 00:00:00* Test Item Value Reference Range Interpretation Comme nts GLUCOSE (test code = 2217) 87 MG/DL BUN (test code = 2208) 13 MG/DL CREATININE (test code = 2214) 0.77 MG/DL eGFR (2020 CKD-EPI) (test co de = 78069) 96 ML/MIN/1.73 CALC BUN/CREAT (test code = [...] code = 2219) 10 U/L Delroy UmanaLIPID [id number] 00:00:00* Test Item Value Reference Range Interpretation Comme nts CHOLESTEROL (test code = 2210) 133 MG/DL TRIGLYCERIDES (test code = 2232) 76 MG/DL HDL CHOLESTEROL (test code = 2220) 42 MG/DL CALC LDL CHOL (test code = 2237) 75 MG/DL RISK RATIO LDL/HDL (test cod e = 2238) 1.79 RATIO Delroy Nicholson AustinCOMPREHENSIVE METABOLIC [id number] 00:00:00* Test Item Value Reference Range Interpretation Comme nts GLUCOSE (test code = 2217) 87 MG/DL BUN (test code = 2208) 13 MG/DL CREATININE (test code = 2214) 0.77 MG/DL eGFR (2020 CKD-EPI) (test co de = 25879) 96 ML/MIN/1.73 CALC BUN/CREAT (test code = [...] code = 2219) 10 U/L Delroy Nicholson [place] [id number] 00:00:00* Test Item Value Reference Range Interpretation Comme nts CHOLESTEROL (test code = 2210) 133 MG/DL TRIGLYCERIDES (test code = 2232) 76 MG/DL HDL CHOLESTEROL (test code = 2220) 42 MG/DL CALC LDL CHOL (test code = 2237) 75 MG/DL RISK RATIO LDL/HDL (test cod e = 2238) 1.79 RATIO Delroy F DongCOMPREHENSIVE METABOLIC [id number] 00:00:00* Test Item Value Reference Range Interpretation Comme nts GLUCOSE (test code = 2217) 87 MG/DL BUN (test code = 2208) 13 MG/DL CREATININE (test code = 2214) 0.77 MG/DL eGFR (2020 CKD-EPI) (test co de = 72385) 96 ML/MIN/1.73 CALC BUN/CREAT (test code = [...] code = 2219) 10 U/L Delroy Nicholson [place] [id number] 00:00:00* Test Item Value Reference Range Interpretation Comme nts CHOLESTEROL (test code = 2210) 133 MG/DL TRIGLYCERIDES (test code = 2232) 76 MG/DL HDL CHOLESTEROL (test code = 2220) 42 MG/DL CALC LDL CHOL (test code = 2237) 75 MG/DL RISK RATIO LDL/HDL (test cod e = 2238) 1.79 RATIO Delroy UmanaCOMPREHENSIVE METABOLIC [id number] 00:00:00* Test Item Value Reference Range Interpretation Comme nts GLUCOSE (test code = 2217) 87 MG/DL BUN (test code = 2208) 13 MG/DL CREATININE (test code = 2214) 0.77 MG/DL eGFR (2020 CKD-EPI) (test co de = 46311) 96 ML/MIN/1.73 CALC BUN/CREAT (test code = [...] code = 2219) 10 U/L Delroy UmanaLIPID [id number] 00:00:00* Test Item Value Reference Range Interpretation Comme nts CHOLESTEROL (test code = 2210) 133 MG/DL TRIGLYCERIDES (test code = 2232) 76 MG/DL HDL CHOLESTEROL (test code = 2220) 42 MG/DL CALC LDL CHOL (test code = 2237) 75 MG/DL RISK RATIO LDL/HDL (test cod e = 2238) 1.79 RATIO Delroy UmanaCOMPREHENSIVE METABOLIC [id number] 00:00:00* Test Item Value Reference Range Interpretation Comme nts GLUCOSE (test code = 2217) 87 MG/DL BUN (test code = 2208) 13 MG/DL CREATININE (test code = 2214) 0.77 MG/DL eGFR (2020 CKD-EPI) (test co de = 62917) 96 ML/MIN/1.73 CALC BUN/CREAT (test code = [...] code = 2219) 10 U/L Delroy UmanaLIPID [id number] 00:00:00* Test Item Value Reference Range Interpretation Comme nts CHOLESTEROL (test code = 2210) 133 MG/DL TRIGLYCERIDES (test code = 2232) 76 MG/DL HDL CHOLESTEROL (test code = 2220) 42 MG/DL CALC LDL CHOL (test code = 2237) 75 MG/DL RISK RATIO LDL/HDL (test cod e = 2238) 1.79 RATIO Delroy Nicholson AustinCOMPREHENSIVE METABOLIC [id number] 00:00:00* Test Item Value Reference Range Interpretation Comme nts GLUCOSE (test code = 2217) 87 MG/DL BUN (test code = 2208) 13 MG/DL CREATININE (test code = 2214) 0.77 MG/DL eGFR (2020 CKD-EPI) (test co de = 15708) 96 ML/MIN/1.73 CALC BUN/CREAT (test code = [...] code = 2219) 10 U/L Delroy UmanaLIPID [id number] 00:00:00* Test Item Value Reference Range Interpretation Comme nts CHOLESTEROL (test code = 2210) 133 MG/DL TRIGLYCERIDES (test code = 2232) 76 MG/DL HDL CHOLESTEROL (test code = 2220) 42 MG/DL CALC LDL CHOL (test code = 2237) 75 MG/DL RISK RATIO LDL/HDL (test cod e = 2238) 1.79 RATIO Delroy Nicholson AustinCOMPREHENSIVE METABOLIC [id number] 00:00:00* Test Item Value Reference Range Interpretation Comme nts GLUCOSE (test code = 2217) 87 MG/DL BUN (test code = 2208) 13 MG/DL CREATININE (test code = 2214) 0.77 MG/DL eGFR (2020 CKD-EPI) (test co de = 15492) 96 ML/MIN/1.73 CALC BUN/CREAT (test code = [...] code = 2219) 10 U/L Delroy UmanaLIPID [id number] 00:00:00* Test Item Value Reference Range Interpretation Comme nts CHOLESTEROL (test code = 2210) 133 MG/DL TRIGLYCERIDES (test code = 2232) 76 MG/DL HDL CHOLESTEROL (test code = 2220) 42 MG/DL CALC LDL CHOL (test code = 2237) 75 MG/DL RISK RATIO LDL/HDL (test cod e = 2238) 1.79 RATIO Delroy UmanaCOMPREHENSIVE METABOLIC [id number] 00:00:00* Test Item Value Reference Range Interpretation Comme nts GLUCOSE (test code = 2217) 87 MG/DL BUN (test code = 2208) 13 MG/DL CREATININE (test code = 2214) 0.77 MG/DL eGFR (2020 CKD-EPI) (test co de = 33006) 96 ML/MIN/1.73 CALC BUN/CREAT (test code = [...] code = 2219) 10 U/L Delroy UmanaLIPID [id number] 00:00:00* Test Item Value Reference Range Interpretation Comme nts CHOLESTEROL (test code = 2210) 133 MG/DL TRIGLYCERIDES (test code = 2232) 76 MG/DL HDL CHOLESTEROL (test code = 2220) 42 MG/DL CALC LDL CHOL (test code = 2237) 75 MG/DL RISK RATIO LDL/HDL (test cod e = 2238) 1.79 RATIO Delroy UmanaCHLAMYDIA, AMPLIFIED, [id number] 00:00:00* Test Item Value Reference Range Interpretation Comme nts CHLAMYDIA, TMA (test code = 30810) NEGATIVE Delroy UmanaGC, AMPLIFIED, [id number] 00:00:00* Test Item Value Reference Range Interpretation Comme nts GONORRHEA, TMA (test code = 01597) NEGATIVE Delroy UmanaCOMPREHENSIVE METABOLIC [id number] 00:00:00* Test Item Value Reference Range Interpretation Comme nts GLUCOSE (test code = 2217) 104 MG/DL BUN (test code = 2208) 8 MG/DL CREATININE (test code = 2214) 0.59 MG/DL eGFR AMER. (test cod e = 90587) 134 ML/MIN/1.73 eGFR NON- AMER. (test code = 26620) 115 ML/MIN/1.73 CALC BUN/CREAT (test code = 2235) 14 RATIO SODIUM (test code = 2231) 139 MEQ/L POTASSIUM (test code = 2228) 3.6 MEQ/L CHLORIDE (test code = 2215) 103 MEQ/L CARBON DIOXIDE (test code = 2206) 22 MEQ/L CALCIUM (test code = 2209) 8.7 MG/DL PROTEIN, TOTAL (test code = 2229) 6.5 G/DL ALBUMIN (test code = 2201) 4.0 G/DL CALC GLOBULIN (test code = 2240) 2.5 G/DL CALC A/G RATIO (test code = 2234) 1.6 RATIO BILIRUBIN, TOTAL (test code = 2207) 0.2 MG/DL ALKALINE PHOSPHATASE (test code = 2204) 84 U/L AST (test code = 2218) 15 U/L ALT (test code = 2219) 10 U/L Delroy UmanaLIPID [id number] 00:00:00* Test Item Value Reference Range Interpretation Comme nts CHOLESTEROL (test code = 2210) 130 MG/DL TRIGLYCERIDES (test code = 2232) 116 MG/DL HDL CHOLESTEROL (test code = 2220) 28 MG/DL CALC LDL CHOL (test code = 2237) 79 MG/DL RISK RATIO LDL/HDL (test cod e = 2238) 2.81 RATIO Delroy UmanaCBC W/AUTO [id number] 00:00:00* Test Item Value Reference Range Interpretation Comme nts WBC (test code = 1001) 6.8 K/UL RBC (test code = 1002) 3.82 M/UL HEMOGLOBIN (test code = 1003) 11.8 G/DL HEMATOCRIT (test code = 1004) 35.0 % MCV (test code = 1005) 91.6 fL MCH (test code = 1006) 30.9 PG MCHC (test code = 1007) 33.7 G/DL RDW (test code = 1038) 11.8 % NEUTROPHILS (test code = 1008) 56.9 % LYMPHOCYTES (test code = 1010) 34.1 % MONOCYTES (test code = 1011) 5.9 % EOSINOPHILS (test code = 1012) 2.7 % BASOPHILS (test code = 1013) 0.4 % PLATELET COUNT (test code = 1015) 241 K/UL Delroy UmanaHEMOGLOBIN [id number] 00:00:00* Test Item Value Reference Range Interpretation Comme nts HEMOGLOBIN A1c (test code = 16070) 5.2 % Delroy Nicholson DongTHYROID II PROFILE (T3U, T4, T7, TSH)[id number] 00:00:00* Test Item Value Reference Range Interpretation Comme nts T3 UPTAKE (test code = 2817) 32.1 % T4 (THYROXINE) (test code = 2819) 7.8 UG/DL CALCULATED T7 (FTI) (test co de = 2820) 2.50 TSH (test code = 2821) 0.7 UIU/ML Delroy UmanaACUTE HEPATITIS [id number] 00:00:00* Test Item Value Reference Range Interpretation Comme nts HEPATITIS A IgM (test code = 23051) NON-REACTIVE HEPATITIS B CORE IgM (test c ode = 4644) NON-REACTIVE HEPATITIS B SURF AG (test co de = 5329) NON-REACTIVE HEPATITIS C ANTIBODY (test c ode = 2697) NON-REACTIVE INTERPRETATION HEPATITIS A: (test code = 2552) (NOTE) INTERPRETATION HEPATITIS B: (test code = 22074) (NOTE) INTERPRETATION HEPATITIS C: (test code = 84695) (NOTE) Delroy UmanaHIV AB/AG COMBO RFLX [id number] 00:00:00* Test Item Value Reference Range Interpretation Comme nts HIV 1/2 4TH GEN, RFLX CONF ( test code = 3514) NON-REACTIVE Delroy [id number] 00:00:00* Test Item Value Reference Range Interpretation Comme nts RPR RESULT (test code = 3501) NON-REACTIVE RPR TITER (test code = 3500) NOT INDIC. TITER Delroy UmanaCBC W/AUTO [id number] 00:00:00* Test Item Value Reference Range Interpretation Comme nts WBC (test code = 1001) 6.2 K/UL RBC (test code = 1002) 4.08 M/UL HEMOGLOBIN (test code = 1003) 12.5 G/DL HEMATOCRIT (test code = 1004) 38.0 % MCV (test code = 1005) 93.1 fL MCH (test code = 1006) 30.6 PG MCHC (test code = 1007) 32.9 G/DL RDW (test code = 1038) 12.0 % NEUTROPHILS (test code = 1008) 49.9 % LYMPHOCYTES (test code = 1010) 35.6 % MONOCYTES (test code = 1011) 9.9 % EOSINOPHILS (test code = 1012) 4.0 % BASOPHILS (test code = 1013) 0.6 % PLATELET COUNT (test code = 1015) 286 K/UL Delroy [id number] 00:00:00* Test Item Value Reference Range Interpretation Comme nts TSH (test code = 2821) 1.8 UIU/ML Delroy UmanaCOMPREHENSIVE METABOLIC [id number] 00:00:00* Test Item Value Reference Range Interpretation Comme nts GLUCOSE (test code = 2217) 72 MG/DL BUN (test code = 2208) 11 MG/DL CREATININE (test code = 2214) 0.6 MG/DL eGFR AMER. (test cod e = 75220) 135 ML/MIN/1.73 eGFR NON- AMER. (test code = 71025) 112 ML/MIN/1.73 CALCULATED BUN/CREAT (test code = 2235) 18 RATIO SODIUM (test code = 2231) 140 MEQ/L POTASSIUM (test code = 2228) 4.1 MEQ/L CHLORIDE (test code = 2215) 106 MEQ/L CARBON DIOXIDE (test code = 2206) 25 MEQ/L CALCIUM (test code = 2209) 9.2 MG/DL PROTEIN, TOTAL (test code = 2229) 7.5 G/DL ALBUMIN (test code = 2201) 4.2 G/DL CALCULATED GLOBULIN (test code = 2240) 3.3 G/DL CALCULATED A/G RATIO (test code = 2234) 1.3 RATIO BILIRUBIN, TOTAL (test code = 2207) 0.4 MG/DL ALKALINE PHOSPHATASE (test code = 2204) 92 U/L SGOT (AST) (test code = 2218) 17 U/L SGPT (ALT) (test code = 2219) 19 U/L [facility] [id number] 00:00:00* Test Item Value Reference Range Interpretation Comme nts WBC (test code = 1001) 7.6 K/UL RBC (test code = 1002) 4.10 M/UL HEMOGLOBIN (test code = 1003) 12.3 G/DL HEMATOCRIT (test code = 1004) 38.0 % MCV (test code = 1005) 92.7 fL MCH (test code = 1006) 30.0 PG MCHC (test code = 1007) 32.4 G/DL RDW (test code = 1038) 13.8 % NEUTROPHILS (test code = 1008) 59 % LYMPHOCYTES (test code = 1010) 31 % MONOCYTES (test code = 1011) 6 % EOSINOPHILS (test code = 1012) 3 % BASOPHILS (test code = 1013) 1 % PLATELET COUNT (test code = 1015) 289 K/UL Delroy UmanaTHYROID II PROFILE (T3U, T4, T7, TSH)2015-04-27 00:00:00* Test Item Value Reference Range Interpretation Comme nts T3 UPTAKE (test code = 2817) 26.3 % T4 (THYROXINE) (test code = 2819) 8.2 UG/DL CALCULATED T7 (FTI) (test co de = 2820) 2.16 TSH (test code = 2821) 1.4 UIU/ML Delroy Nicholson Dong Notes Date/Time Note Provider Source [facility]2025-05-06 00:00:00 [facility]2025-04-08 00:00:00 [facility]2025-01-27 00:00:00 [facility]2025-01-06 00:00:00 [facility]2024-11-09 00:00:00 [facility]2024-10-22 00:00:00 [facility]2024-08-02 00:00:00 [facility]2024-06-07 00:00:00 [facility]2024-05-24 00:00:00 [facility]2024-05-21 00:00:00 [facility]2024-04-18 00:00:00 [facility]2024-03-29 00:00:00 [facility]
--- NOTE | 2025-03-24 13:12 | ER ---
Nurse's Notes [facility] Name: Bonnie Rivers Age: 49 yrs Sex: Female : 1975 Arrival Date: 03/24/2025 Time: 12:17 Bed DX3 Private MD: Diagnosis: Generalized edema Presentation: 03/24 12:41 Chief complaint: Patient states: SPONTANEOUS LEFT FOOT SWELLING AND PAIN x3 DAYS, NO bp TRAUMA. Coronavirus screen: At this time, the client does not indicate any symptoms associated with coronavirus-19. Ebola Screen: No symptoms or risks identified at this time. Initial Sepsis Screen: Does the patient meet any 2 criteria? No. Patient's initial sepsis screen is negative. Does the patient have a suspected source of infection? No. Patient's initial sepsis screen is negative. Risk Assessment: Do you want to hurt yourself or someone else? Patient reports no desire to harm self or others. Onset of symptoms is unknown. 12:41 Method Of Arrival: Ambulatory bp 12:41 Acuity: DARIA 4 bp Historical: - Allergies: 12:42 No Known Drug Allergies; bp - Home Meds: 12:42 losartan oral [Active]; Mirtazapine Oral [Active]; lamotrigine oral [Active]; bp - PMHx: 12:42 Anxiety; Bipolar disorder; GERD; Hypertensive disorder; bp - PSHx: 12:42 section; bp - Immunization history:: Adult Immunizations up to date. - Infectious Disease History:: Denies. - Social history:: Smoking status: Patient denies any tobacco usage or history of. Vital Signs: 12:41 BP 124 / 89; Pulse 93; Resp 16; Temp 98.1; Pulse Ox 100% ; bp ED Course: 12:22 Patient arrived in ED. gl 12:27 Joshua Garcia MD is Attending Physician. jr11 12:42 Triage completed. bp 12:42 Arm band placed on. bp Administered Medications: No medications were administered Outcome: 13:12 Discharge ordered by . zack 13:23 Patient left the ED. Signatures: Kallie Fajardo RN RN hb Иван David RN RN bp Joshua Garcia MD MD jr11 Karen Sol, Reg Reg gl
--- NOTE | 2025-03-24 13:12 | EDPHYS ---
Physician Documentation [facility] Name: Bonnie Rivers Age: 49 yrs Sex: Female : 1975 Arrival Date: 03/24/2025 Time: 12:17 Bed DX3 Private MD: ED Physician Joshua Garcia HPI: 03/24 13:11 Chief Complaint Foot swelling. 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 The swelling occurs on and off, primarily after standing for long periods during 12-hour shifts. The patient reports a burning sensation but notes that the foot is not currently swollen. The swelling was initially noted while at home rather than during work. A previous episode of swelling was associated with tenderness. The patient had laboratory work done a couple of weeks ago, which reportedly returned normal results. The patient expresses concern about the swelling despite recent normal lab work. Review of Systems - Positive for foot swelling and burning sensation. - ROS otherwise negative. . Historical: - Allergies: 12:42 No Known Drug Allergies; bp - Home Meds: 12:42 losartan oral [Active]; Mirtazapine Oral [Active]; lamotrigine oral [Active]; bp - PMHx: 12:42 Anxiety; Bipolar disorder; GERD; Hypertensive disorder; bp - PSHx: 12:42 section; bp - Immunization history:: Adult Immunizations up to date. - Infectious Disease History:: Denies. - Social history:: Smoking status: Patient denies any tobacco usage or history of. Exam: 13:11 Constitutional: This is a well developed, well nourished patient who is awake, alert, jr11 and in no acute distress. Head/Face: Normocephalic, atraumatic. Eyes: Extra-ocular motions intact. Lids and lashes normal. Conjunctiva and sclera are non-icteric and not injected. Cornea within normal limits. Periorbital areas with no swelling, redness, or edema. Neck: Trachea midline, no thyromegaly or masses palpated, and no cervical lymphadenopathy. Supple, full range of motion without nuchal rigidity, or vertebral point tenderness. No Meningismus. Chest/axilla: Normal chest wall appearance and motion. Nontender with no deformity. No lesions are appreciated. Cardiovascular: Regular rate and rhythm with a normal S1 and S2. No gallops, murmurs, or rubs. Normal PMI, no JVD. No pulse deficits. Abdomen/GI: Soft, non-tender, with normal bowel sounds. No distension or tympany. No guarding or rebound. No evidence of tenderness throughout. Back: No spinal tenderness. No costovertebral tenderness. Full range of motion. Skin: Warm, dry with normal turgor. Normal color with no rashes, no lesions, and no evidence of cellulitis. MS/ Extremity: Pulses equal, no cyanosis. Neurovascular intact. Full, normal range of motion. Neuro: Awake and alert, GCS 15, oriented to person, place, time, and situation. No gross motor or sensory deficits. Vital Signs: 12:41 BP 124 / 89; Pulse 93; Resp 16; Temp 98.1; Pulse Ox 100% ; bp MDM: 12:59 Medical Screening Exam initiated jr11 13:11 Differential diagnosis: completely normal exam Medical Decision Making 1. 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 2. Venous Insufficiency: Possible due to occupational standing, though less likely given the normal lab work. 3. Lymphedema: Less likely, as there are no signs of persistent or severe swelling. 4. Heart Failure: Unlikely given the patient's age and normal recent lab results. Plan - Recommend the use of compression stockings during long shifts to alleviate symptoms of swelling. - No immediate need for further lab work unless symptoms persist or worsen. - Patient is advised to monitor symptoms and return if there is any significant change. - Patient can return to work if comfortable. 13:11 ED course: Considered blood work but feels comfortable following up. jr11 Administered Medications: No medications were administered Disposition Summary: 03/24/25 13:12 Discharge Ordered Condition: Stable jr11 Diagnosis - Generalized edema jr11 Discharge Instructions: - Discharge Summary Sheet em1 - Edema jr11 Forms: - Work release form em1 - Medication Reconciliation Form jr11 - Antibiotic Education jr11 - Prescription Opioid Use jr11 - Patient Portal Instructions jr11 - Leadership Thank You Letter jr11 Signatures: Иван David RN RN bp Joshua Garcia MD MD jr11
[2025-03-24 13:44] VITALS: BP 124/89; TEMP 98.1; O2SAT 100
== END 2025-03-24 13:23 | disposition home or self-care (01) ==
LOC: ER 12:17
DX: R60.1 Generalized edema (principal)
CPT/HCPCS: 99281